=== PATIENT | male | born 1950 | race Caucasian/White ===

== ENCOUNTER 2023-10-25 08:04 | Emergency (ER) | payer MEDICARE, SELFPAY ==
[2023-10-25 08:11] VITALS: BP 144/83
[2023-10-25 08:12] LABS: Glucose - Point of Care 153 mg/dl (70-99)
--- NOTE | 2023-10-25 08:12 | ED.GENMED ---
History of Present Illness
General
Chief Complaint: Seizure
Source: patient and ambulance crew
Exam Limitations: none
Time Seen by Provider: 10/25/23 08:10
Nursing documentation reviewed up to this point in time: agreed with
Travel History
Have you had any contact with someone who has COVID-19?: No
Do you have any symptoms of coronavirus? Fever > 100 degrees, chills, cough, shortness of breath, sore throat, loss of taste or smell, muscle aches, or headache?: No
History of Present Illness
History of Present Illness:
73 yo male presents to the emergency department due to a possible seizure. He was found on the floor. He denies any complaints at this time. EMS notes he is at his baseline currently.
Past History
Past History
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 Sleep apnea)
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
Social History
Tobacco: Non-smoker
Alcohol: None
Drug: None
Personal: Single
Living: assisted living
Employment: Disabled
Family History
Family History: Other (breast cancer)
Review of Systems
Review of Systems
Allergies reviewed?: Yes
All Other Systems: Not applicable
Constitutional: Reports no symptoms
EENT: Reports no symptoms
Respiratory: Reports no symptoms
Cardiac: Reports no symptoms
ABD/GI: Reports no symptoms
: Reports no symptoms
Musculoskeletal: Reports no symptoms
Skin: Reports no symptoms
Neurological: Reports other (possible seizure)
Endocrine: Reports no symptoms
Hematologic/Lymphatic: Reports no symptoms
Psychiatric: Reports no symptoms
Phy Exam
Physical Exam
Physical Exam:
Physical Exam
General: no apparent distress, not acutely ill
Neck: supple. no meningeal signs. normal posterior pharynx
Heart: s1/s2 regular rate and rhythm, no murmur. equal radial
pulses.
HEENT: Pupils equal round reactive to light, EOMI
Lungs: no acute respiratory distress. clear bilaterally
Abdomen: normal bowel sounds. not tender. no CVAT
Neuro: alert and oriented. no focal neurological deficits cranial nerves II through XII intact
Skin: no rash, bruising right shoulder, appears old
Psychiatric: well kept. interactive and cooperative
Extremities: no edema. no calf tenderness. negative homans. good distal pulses
Course
Orders/Labs/Results
Orders:
Orders
10/25/23 08:10
CT Cervical Spine W/o Iv Contr Urgent
Comment:
Reason For Exam: fall
EKG- Treatment ONCE
10/25/23 08:11
CT Head W/o Iv Contrast Urgent
Comment:
Reason For Exam: fall, seizure
10/25/23 08:12
Electrocardiogram (*1) Urgent
Reason for Study: Other
Other Reason for Exam: seizure
10/25/23 08:13
IV Insert/Care/Rem.- Treatment PRN
10/25/23 08:43
Complete Blood Count/With Diff Urgent
Comprehensive Metabolic Panel Urgent
Dilantin Urgent
Phenobarbital [S] Urgent
10/25/23 09:50
Humerus, Right 2 Views [CR Humerus - Right Min 2 View*] Urgent
Comment:
Reason For Exam: right shoulder/humerus pain/bruising
Abnormal Lab Results
10/25/23 10/25/23
08:10 08:43
RBC 4.40 L 10^6/uL
(4.70-6.10)
MCV 94.1 H fL
(80.0-94.0)
MCH 32.3 H pg
(27.0-31.0)
Abs Immat Gran (auto) 0.1 H 10^3/uL
(0-0.05)
Absolute Neuts (auto) 8.2 H 10^3/uL
(1.4-6.5)
Absolute Lymphs (auto) 1.1 L 10^3/uL
(1.2-3.4)
Absolute Monos (auto) 1.4 H 10^3/uL
(0.1-0.6)
Immature Gran % 0.6 H %
(0-0.5)
Neutrophils % 75.9 H %
(42.2-75.2)
Lymphocytes % 9.9 L %
(20.5-51.1)
Monocytes % 13.0 H %
(1.7-9.3)
Creatinine 0.5 L mg/dL
(0.7-1.3)
Glucose 121 H mg/dl
(70-99)
Phenytoin 25.8 H ug/ml
(10-20)
POC Glucose 153 H mg/dl
(70-99)
10/25/23 08:43
10/25/23 08:43
Vital Signs
Initial and Last Documented VS:
Initial Vital Signs
Temp Pulse Resp BP Pulse Ox
98.3 F 85 16 144/83 95
10/25/23 08:11 10/25/23 08:11 10/25/23 08:11 10/25/23 08:11 10/25/23 08:11
Last Documented Vital Signs
Temp Pulse Resp BP Pulse Ox
98.3 F 85 15 123/85 94
10/25/23 08:11 10/25/23 09:20 10/25/23 09:20 10/25/23 09:20 10/25/23 09:20
MDM/Problems Addressed
Differential Diagnosis Includes:
seizure, right humerus fracture
MDM/Problems Addressed:
73 yo male with breakthrough seizure, right humerus contusion. D/w Dr. Duncan, recommends f/u in office. Anti epileptics may need adjustment. Pt has not seen neurology in 9 years because it causes him great anxiety.
Chronic conditions affecting care: Neurological disorder (seizures, sturge cervantes)
Acute Exacerbation and/or Progression of Chronic Illness: Neurological disorder (seizures)
*Radiology
Radiology exam reviewed: radiology read reviewed (ct head nad, right humerus xray no frx)
*Pulse Oximetry
Patient hypoxic: no
*EKG
Interpreted by ED Provider?: Yes
EKG Intrepretation Date: 10/25/23
EKG Intrepretation Time: 08:19
Interpretation: abnormal
Comparison EKG: no changes
Heart Rate: 84
Rate: normal
Rhythm: sinus
[place]: normal axis
Interval: first degree heart block
QRS Pattern: normal QRS
Ischemia: no ischemia
*Curriculum Facilitator Interpretation
Rate: normal
Interpretation: normal
Heart Rate: 79
Rhythm: sinus
*Critical Care Note
Total Time (30-74mins, 75-104mins- exclusive of procedures): Not Applicable
Data Reviewed
Review of Other/Old Records Reveals: Radiology Studies
Source: records (prior ct head no changes)
Patient Management
Social determinants of health affecting care: Living situation and Strong social support
Discussion with other providers: Boiler Out (neurology Dr. Duncan)
Escalation/DeEscalation of care consider admission/obs:
admit not indicated
ED Attending Note
-
Portions of this chart may have been created with voice recognition software.� Occasional wrong word or��sound alike� substitutions may have occurred due to the inherent limitations of voice recognition software.
Discharge Plan
Departure
Patient Disposition: Assisted Living
Date of Disposition: 10/25/23
Time of Disposition: 10:27
Patient with high blood pressure during this ER visit?: Yes
Condition: Good
Discharge Problem:
Seizure, Sturge-Cervantes syndrome, Contusion of right shoulder
Instructions: Seizures, Adult (DC), BLOOD PRESSURE, Contusion
Prescriptions:
No Action
phenobarbital 97.2 mg Tablet
97.2 mg PO HS Qty: 0
cyanocobalamin (vitamin B-12) 1,000 mcg Tablet Extended Release
1,000 mcg PO DAILY Qty: 0
diphenhydramine HCl [Banophen] 25 MG capsule
25 mg PO Q4HPRN PRN (Reason: swelling) Qty: 20 0RF
acetaminophen 325 mg Tablet
650 mg PO Q4HPRN PRN (Reason: pain/fever)
pantoprazole [Protonix] [address] for susp in packet
40 mg PO DAILY Qty: 30 0RF
sertraline 25 mg Tablet
25 mg PO DAILY 30 Days Qty: 30 0RF
phenytoin sodium 100 mg Capsule
200 mg PO HS
cholecalciferol (vitamin D3) [Vitamin D3] 25 mcg (1,000 unit) Tablet
25 mcg PO DAILY
phenytoin sodium extended 100 mg capsule
100 mg PO BID
Referrals:
Wally Reeder MD [Active] - Call in 1-3 days for appt
Kristen Charles CRNP [Family Provider] -
Interventions
Interventions:
*Risk Screen - Suicide Last Done: 10/25/23 08:38
*Neglect/Abuse Screening Last Done: 10/25/23 08:38
ED- Fall Risk Assessment Last Done: 10/25/23 08:40
*ED COVID-19 Vaccine History Last Done: 10/25/23 08:15
ED- Cardiac Assessment Last Done: 10/25/23 08:40
ED- Neurological Assessment Last Done: 10/25/23 08:38
ED- Pulmonary Assessment Last Done: 10/25/23 08:39
[2023-10-25 09:01] LABS: % Basophils 0.4 % (0-2); % Eosinophils 0.2 % (0-6); % Immature Granulocytes 0.6 % (0-0.5); % Lymphocytes 9.9 % (20.5-51.1); % Neutrophils 75.9 % (42.2-75.2); Absolute Immature Granulocytes 0.1 10^3/uL (0-0.05); Absolute Lymphocytes 1.1 10^3/uL (1.2-3.4); Absolute Monocytes 1.4 10^3/uL (0.1-0.6); Absolute Neutrophils 8.2 10^3/uL (1.4-6.5); Hematocrit 41.4 % (39.0-52.0); Hemoglobin 14.2 g/dL (13.0-18.0); Mean Corp Hgb Conc. 34.3 g/dL (33.0-37.0); Mean Corpuscular Hgb 32.3 pg (27.0-31.0); Mean Corpuscular Volume 94.1 fL (80.0-94.0); Mean Platelet Volume 9.5 fL (7.4-10.4); Nucleated Red Blood Cells % 0 % (-); Platelet Count 218 10^3/uL (130-400); Red Cell Dist. Width 13.4 % (11.5-14.5); White Blood Cell Count 10.8 10^3/uL (4.8-10.8)
[2023-10-25 09:07] LABS: ALT (SGPT) 22 U/L (0-50); AST (SGOT) 40 U/L (17-59); Albumin 4.3 g/dl (3.5-5.0); Alkaline Phosphatase 114 U/L (38-126); Blood Urea Nitrogen 15 mg/dl (9-20); Carbon Dioxide 27 mmol/L (22-30); Chloride 105 mmol/L (98-107); Glucose 121 mg/dl (70-99); Potassium 4.1 mmol/L (3.5-5.1); Sodium 136 mmol/L (135-145); Total Bilirubin 0.7 mg/dl (0.2-1.3); Total Protein 7.6 g/dl (6.3-8.2); eGFR > 60.00
[2023-10-25 09:11] LABS: Dilantin 25.8 ug/ml (10-20)
[2023-10-25 09:20] VITALS: BP 123/85
[2023-10-25 10:00] VITALS: BP 137/81
[2023-10-25 11:00] VITALS: BP 140/93
--- NOTE | 2023-10-25 12:38 | EDRN ---
copies of all tests and ER physician notes sent with pt to [facility]
== END 2023-10-25 12:38 ==
LOC: EMR 08:04
PROVIDERS: EMERGENCY PHYSICIAN Emergency Medicine; FAMILY PHYSICIAN Nurse Practitioner Adult Health
DX: R56.9 Unspecified convulsions (principal); Q85.89 Other phakomatoses, not elsewhere classified; S40.011A Contusion of right shoulder, initial encounter; W19.XXXA Unspecified fall, initial encounter; R03.0 Elevated blood-pressure reading, without diagnosis of hypertension
CPT/HCPCS: 99285; 70450; 72125; 73060; 80053; 80184; 80185; 82962; 85025; 93005

== ENCOUNTER 2023-10-27 13:24 | Inpatient (IN) | payer MEDICARE, SELFPAY ==
[2023-10-25] VITALS (8 sets, daily range): BP systolic 103–127; BP diastolic 67–82; BMI 29.1
--- NOTE | 2023-10-25 16:18 | ED.GENMED ---
History of Present Illness
General
Chief Complaint: Weakness
Source: patient
Exam Limitations: none
Time Seen by Provider: 10/25/23 16:05
Nursing documentation reviewed up to this point in time: agreed with
Travel History
Have you had any contact with someone who has COVID-19?: No
Do you have any symptoms of coronavirus? Fever > 100 degrees, chills, cough, shortness of breath, sore throat, loss of taste or smell, muscle aches, or headache?: No
History of Present Illness
History of Present Illness:
Patient is a 73-year-old male who presents back to the ER. Patient is a resident of [place]. He has a past medical history of seizures and is on Dilantin and phenobarb. As per brother who was giving history pt had a seizure yesterday and was
found on the floor today by staff and was felt that he had a seizure today. He was seen here earlier in the ER and was sent back to [place]. Brother reports patient was more alert and himself earlier however once he got back to [place] he seemed
very confused and out of it. Brother reports patient is normally awake alert self-sufficient not confused walks with a walker Manuel himself and he has not been like his baseline.
Patient is awake alert he does make eye intact he attempts to answer questions but does not answer all questions.
During previous visit patient had his Dilantin level checked and it was 25.8. He had a negative CAT scan and normal blood work.
brother reprots
Past History
Past History
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 Sleep apnea)
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
Social History
Tobacco: Non-smoker
Alcohol: None
Drug: None
Personal: Single
Living: assisted living
Employment: Disabled
Family History
Family History: Other (breast cancer)
Review of Systems
Review of Systems
Allergies reviewed?: Yes
Unable to obtain full review of systems at this time due to: other (mental status changes )
Other source history: family
All Other Systems: ROS reviewed and negative except as documented in HPI and ROS
Constitutional: Denies fever
Cardiac: Reports no symptoms
ABD/GI: Reports no symptoms
: Reports no symptoms
Musculoskeletal: Reports no symptoms
Skin: Reports no symptoms
Neurological: Reports other (increased confusion, pt not baseline as per brother )
Psychiatric: Reports no symptoms
Phy Exam
General Physical Exam
General Presentation: no apparent distress
General Skin: warm and dry
General Habitus: normal
General Mental: alert
General Hydration: appears well hydrated
Cardiovascular Exam
Cardiovascular Exam: regular rate/rhythm, no murmur and normal peripheral pulses
Pulmonary Exam
Pulmonary Exam: lungs clear and no respiratory distress
Neurological Exam
Neurological Exam: alert and oriented x3
Musculoskeletal Exam
Musculoskeletal Exam: full ROM
Skin Exam
Skin Exam: normal color and warm/dry
Psychiatric Exam
Psychiatric Exam: normal mood/affect
Course
Orders/Labs/Results
Orders:
Orders
10/25/23 16:19
Straight cath- Treatment ONCE
10/25/23 16:21
COVID-19 Antigen Urgent
Source: Nasal Swab
Influenza A+B Rapid Molecular Urgent
NANCY Source: Nasal Swab
Specimen Description:
10/25/23 16:37
UA Reflex to Culture [Urinalysis Reflex To Culture] Urgent
Date Specimen was Collected: 10/25/23
Time Specimen was Collected: 16:29
10/25/23 17:06
Chest [CR Chest - 2 Views ] Urgent
Comment:
Reason For Exam: change in ms
Abnormal Lab Results
10/25/23
16:37
Urine Ketones 1+ A
(Negative)
Vital Signs
Initial and Last Documented VS:
Initial Vital Signs
Temp Pulse Resp BP Pulse Ox
97.8 F 96 16 111/82 94
10/25/23 15:00 10/25/23 15:00 10/25/23 15:00 10/25/23 15:00 10/25/23 15:00
Last Documented Vital Signs
Temp Pulse Resp BP Pulse Ox
97.8 F 96 16 111/82 94
10/25/23 15:00 10/25/23 15:00 10/25/23 15:00 10/25/23 15:00 10/25/23 15:00
Cracker And Cookie Machine Operator consulted with Physician
Cracker And Cookie Machine Operator consulted with physician?: Yes
Name of Physician Consulted: bang
MDM/Problems Addressed
Differential Diagnosis Includes:
Not limited to infection dehydration change mental status
MDM/Problems Addressed:
Patient has history as documented above seen earlier today for seizure. Patient had a seizure yesterday and again today. Patient had basic labs that were done here in the ER which were unremarkable. Event was elevated at 12.[address] head was negative. X-rays of extremities negative. Neurology was consult no medications were adjusted. Brother reports last seizure was 6 months ago. Patient now with 2 seizures in the past 24 hours. Patient was sent back to
[facility] and staff as well as brother report patient is not himself more confused and simply appears generalized weak.
Patient is awake eyes open alert slow to answer questions. Does not respond to all questions.
CT head reviewed from earlier I did not repeat this. Urinalysis negative. COVID flu negative will obtain chest x-ray but admitted for change in mental status.
Chronic conditions affecting care:
Seizures disorder seen earlier for seizure Dilantin elevated 25.9 phenobarb by pending
*Radiology
Radiology exam reviewed: radiology read reviewed
*Pulse Oximetry
Patient hypoxic: no
*Critical Care Note
Total Time (30-74mins, 75-104mins- exclusive of procedures): Not Applicable
Data Reviewed
Review of Other/Old Records Reveals: Other (previous ED visit from this am , labs, ct , ekg all reviewed )
Source: family and retirement
ED Attending Note
-
Portions of this chart may have been created with voice recognition software.� Occasional wrong word or��sound alike� substitutions may have occurred due to the inherent limitations of voice recognition software.
Discharge Plan
Departure
Patient Disposition: Admit
Date of Disposition: 10/25/23
Time of Disposition: 17:32
Admit to: Telemetry
Admit to doctor: hospitalist
Presentation/result/management discussed w/ accepting MD/DO: Hospitalist
Patient with high blood pressure during this ER visit?: No
Condition: Fair
Covid-19: Negative COVID-19
Discharge Problem:
Altered mental status, Seizure
Prescriptions:
No Action
phenobarbital 97.2 mg Tablet
97.2 mg PO HS Qty: 0
cyanocobalamin (vitamin B-12) 1,000 mcg Tablet Extended Release
1,000 mcg PO DAILY Qty: 0
diphenhydramine HCl [Banophen] 25 MG capsule
25 mg PO Q4HPRN PRN (Reason: swelling) Qty: 20 0RF
acetaminophen 325 mg Tablet
650 mg PO Q4HPRN PRN (Reason: pain/fever)
pantoprazole [Protonix] [address] for susp in packet
40 mg PO DAILY Qty: 30 0RF
sertraline 25 mg Tablet
25 mg PO DAILY 30 Days Qty: 30 0RF
cholecalciferol (vitamin D3) [Vitamin D3] 25 mcg (1,000 unit) Tablet
25 mcg PO DAILY
phenytoin sodium extended 100 mg capsule
200 mg PO DAILY@1700
phenytoin sodium extended 100 mg Capsule
100 mg PO BID@0800,2100
Referrals:
Kristen Charles CRNP [Family Provider] -
Interventions
Interventions:
*Risk Screen - Suicide Last Done: 10/25/23 15:00
*General Assessment Last Done: 10/25/23 15:00
*Neglect/Abuse Screening Last Done: 10/25/23 15:00
[2023-10-25 16:46] LABS: Urine Albumin Negative (Neg - Trace); Urine Bilirubin Negative (Negative); Urine Character Clear (Clear); Urine Color Yellow; Urine Glucose Negative (Negative); Urine Ketone 1+ (Negative); Urine Leukocyte Negative (Negative); Urine Nitrite Negative (Negative); Urine Occult Blood Negative (Negative); Urine Urobilinogen Negative (Neg - 1+)
[2023-10-25 16:59] LABS: COVID-19 Antigen Negative (Negative)
--- NOTE | 2023-10-25 17:54 | HPS.HSE ---
Family Physician
-
Family Physician: Kristen Charles
Chief Complaint
-
Seizure
History of Present Illness
Patient had seizure yesterday and was seen in the emergency room today as he was found on the floor this morning., had a CT of the head which was done negative. Neurology was consulted for breakthrough seizures. No medicines were adjusted.
Patient remains on phenobarbital and Dilantin. Dilantin level was 25.8. Patient was sent back to the emergency room because brother feels that the patient is not himself. Generally weak and slow to respond. Per family patient is not able to
ambulate well either. He states that patient has random fluctuations in his Dilantin levels. Has been stable for the past 2 months the doses has not been adjusted. Last seizure was over 6 months ago. No recent medicine adjustments. No fever.
No illness
Medical History
Past Medical History
Past Medical History: Reports Other
Additional Past Medical History:
Seizures, developmental delay, sleep apnea, kyphosis, right frozen shoulder, anxiety, Sturge-Redman syndrome, history of aspiration pneumonia, history of food impaction
Past Surgical History: Reports Other
Additional Past Surgical History:
History of brain tumor resection at age 2
Social History
Tobacco: Non-smoker
Alcohol: None
Personal: Single
Living: Assisted Living
Family History
Family History: Cancer (Prostate cancer father, breast cancer Sister, colon cancer mother)
Allergies / Home Medications
Allergies reflects when Allergies were last updated in [facility].
Home Medications with original date entered in [facility]
Allergy/Medication List:
Allergies
Allergy/AdvReac Type Severity Reaction Status Date / Time
No Known Allergies Allergy Verified 10/25/23 15:00
Home Medications
phenobarbital 97.2 mg tablet 97.2 mg PO HS Seizures ##0 08/19/14
cyanocobalamin (vitamin B-12) 1,000 mcg tablet,extended release 1,000 mcg PO DAILY Supplement ##0 05/07/16
diphenhydramine HCl 25 mg capsule (Banophen) 25 mg PO Q4HPRN PRN swelling #20 caps 08/29/18
acetaminophen 325 mg tablet 650 mg PO Q4HPRN PRN pain/fever 04/03/22
pantoprazole 40 mg granules delayed-release for susp in packet (Protonix) 40 mg PO DAILY #30 ea 04/05/22
sertraline 25 mg tablet 25 mg PO DAILY 30 days #30 tabs 05/29/22
cholecalciferol (vitamin D3) 25 mcg (1,000 unit) tablet (Vitamin D3) 25 mcg PO DAILY 10/25/23
phenytoin sodium extended 100 mg capsule 100 mg PO BID@0800,2100 10/25/23
phenytoin sodium extended 100 mg capsule 200 mg PO DAILY@1700 10/25/23
Review of Systems
-
Unable to obtain full review of systems at this time due to: Other (Patient is a poor historian)
Physical Exam
Vital Signs
Vital Signs
Temp Pulse Resp BP Pulse Ox
97.8 F 90 13 103/71 94
10/25/23 15:00 10/25/23 17:31 10/25/23 17:31 10/25/23 17:31 10/25/23 17:44
Physical Exam
General: No Apparent Distress and Conversant
Respiratory: Clear
Cardiac: S1/S2 and Regular Rhythm
GI: Soft, Non Tender and Normal Bowel Sounds
Skin: Other (Hemangioma from Sturge-Redman on the face, ecchymosis left antecubital area right arm lateral)
Neuro: Awake, Alert and Other (Patient has a right frozen shoulder he has mild weakness on the right side which is not newAble to lift up left leg patient states sensory exam is normal both sides left arm he is able to lift up good grasp 5 x 5
strength. Reflexes decreased but equal bilaterally.)
Data Reviewed
-
Diagnostic Radiology: Report Reviewed by me (X-ray of the shoulder-no acute fracture or dislocation. Chronic deformity of the proximal humerus)
CT Scan: Report Reviewed by me (Head CT-no acute changes. No acute fracture or subluxation of the cervical spine, multilevel DJD of the cervical spine)
Impression/Plan
-
IMPRESSION/PLAN:
# Breakthrough seizure
Unclear cause for breakthrough seizures
No evidence of infection at present
Elevated Dilantin level
Admit for observation
Hold Dilantin per discussion with Dr. Reeder with elevated level
Continue phenobarbital
Seizure precautions
Reported ataxia-possibly secondary to Dilantin toxicity
Dilantin levels in the morning
Neurology evaluation
Urinalysis unremarkable
COVID-negative
Check chest x-ray
# History of dysphagia and food impaction summer
Dysphagia diet
Speech eval
Continue PPI
Assistance with all meals
# Sturge-Redman syndrome
# Developmental delay
# Chronic back pain/scoliosis
# Neuropathy NOS
# Frozen shoulder on the right
# Anxiety/depression-on sertraline
# History of vitamin D deficiency-continue vitamin D supplement
# Sleep apnea-not on CPAP
# CODE STATUS-DNR per discussion with brother and [id number] at bedside
# DVT prophylaxis-SCDs
D/W Neuro
D/W RN
D/W Brother and [facility] Dr.Donna Portillo at bed side
[2023-10-25] MEDS: LUMINAL 97.2000000000000028 MG PO (21:16)
[2023-10-25] MEDS: TYLENOL 650 MG PO (21:22)
[2023-10-26 03:27] VITALS: BP 132/76
[2023-10-26 07:33] VITALS: BP 137/85
[2023-10-26 07:42] LABS: Hematocrit 40.3 % (39.0-52.0); Hemoglobin 13.7 g/dL (13.0-18.0); Mean Corpuscular Volume 94.2 fL (80.0-94.0); Mean Platelet Volume 9.6 fL (7.4-10.4); Platelet Count 237 10^3/uL (130-400); Red Blood Cell Count 4.28 10^6/uL (4.70-6.10); Red Cell Dist. Width 13.6 % (11.5-14.5); White Blood Cell Count 9.1 10^3/uL (4.8-10.8)
[2023-10-26 08:25] LABS: Blood Urea Nitrogen 13 mg/dl (9-20); Calcium 8.8 mg/dl (8.4-10.2); Carbon Dioxide 25 mmol/L (22-30); Chloride 104 mmol/L (98-107); Estimated Creatinine Clearance 91 ml/min; Glucose 96 mg/dl (70-99); Magnesium 2.1 mg/dl (1.6-2.3); Potassium 4.1 mmol/L (3.5-5.1); Sodium 135 mmol/L (135-145); eGFR > 60.00
--- NOTE | 2023-10-26 08:28 | CON.NEURO4 ---
Addendum entered and electronically signed by Ivan Duncan MD 10/26/23 13:36:
I saw and evaluate the patient reviewed note by Juliet Kern agree the findings the following comments:
73-year-old male with a past medical history of Sturge-Redman syndrome, epilepsy, hyperlipidemia, intellectual disability presented to hospital because of confusion leg weakness and difficulty with ambulation. He had recently been seen in the ER on
10/16 after witnessed seizure that day and there had been concern for possible unwitnessed second seizure as well.
Patient had had seizure in August approximately 09/04 that prompted increase in 100 mg nightly and 200 mg p.m. 100 mg nightly. Most recent lab check a phenytoin had been 25.8 on and was 17.0 on 10/25. Seizure frequency can range from around
1/month to 1 every couple of months. He has been on phenytoin as well as phenobarbital for many years now. In the past I had previously seen him in May 2022 with a concern for mild Dilantin toxicity leading to paradoxical increase in seizures.
Patient at this time has no complaints, does not really feel like talking much about seizures. Reports he is left-handed and that he is a ' [place].'
Neurologic examination shows No nystagmus seen on extraocular movements, there is spasticity on the right arm and leg 4 -/5 arm flexion and hip flexion, left arm and leg full health center manager strength and arm flexion limited effort of left hip flexion. Patient
fatigued appearing but is awake and conversational, pleasant and jokes with me. No nystagmus seen on extraocular movements.
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 At this point seems best to move away from phenytoin given has not achieve seizure freedom and has had problems with fluctuating levels and
one-time toxicity. Levels and examination currently do not indicate acute toxicity. Dilantin can produce long-term side effects like peripheral neuropathy and cerebellar atrophy that probably in part explain the patient's chronic ambulatory
dysfunction in addition to his chronic deficits from history of Sturge-Redman syndrome and previous brain neoplasm resection.
Recommendations
-Decrease phenytoin to 200 mg nightly
--- 11/01 decrease phenytoin to 100 mg nightly
--- 11/08 stop phenytoin completely
Start brivaracetam 50 mg twice daily
Continue current dosing of phenobarbital
Would check phenobarbital blood levels 1 and 2 weeks after hospital discharge and have the results faxed to neurology office attention to myself and/or Dr. Reeder
Would monitor 1 further day in hospital given he is fatigued appearing and for tolerability of the new preparation to medication
Not seeing indication for EEG or brain imaging
Will follow
Original Note:
Consultation - Neurology 4
-
CONSULTING PHYSICIAN: Nam Duncan MD
REFERRING PHYSICIAN: Hospitalists/Dr. Devlin
DICTATED BY: USAMA Walker
DATE/TIME OF REQUEST: 10/25/23
DATE/TIME OF CONSULTATION: 10/26/23
Reason for Consultation: Seizure, lower extremity weakness
History of Present Illness:
This is a 73-year-old left-handed male who has presented to the hospital on 10/25/23 from [facility] with report of increased confusion, limited eye opening, and bilateral leg weakness. Per AL staff, patient had a witnessed seizure on
10/24/23. He was evaluated here in the ER on 10/25/23 earlier in the day for report of being found on the floor by nursing staff and concern of a second seizure. In the ER he had returned to his baseline and was discharged back to [place], only to
return to the ER later in the day with report of confusion, limited eye opening, and inability to stand/ambulate. Patient has been evaluated by our inpatient Neurology service in the past and was previously followed by Dr. Reeder as an outpatient but
does not appear to have any outpatient follow-up in years.
From previous evaluation by Dr. Duncan on 05/28/22:
'Is a 71-year-old man with a past medical history of surgery Redman syndrome, chronic epilepsy presenting the hospital because of seizure on 05/27 and 05/26.� Had had a seizure earlier in the morning on 05/27 at the breakfast table with leg clonic
movements described as shaking and then having difficulty walking afterwards notably in the right leg.� Had had approximately 2-3 seizures in the past week, his normal seizure frequency is approximately 1/month.� He was found to have elevated
phenytoin level of 27, in reviewing his previous levels they have generally been the therapeutic range between 15 and 20.� Reviewing phenobarbital levels they have generally been between 23-30 in the therapeutic range.
There have been no recent changes in medications including any dosing changes of phenytoin or phenobarbital.� His phenytoin has been dosed as 100 mg in the morning, 200 mg for noon/afternoon, and 100 mg in the evening.� Phenobarbital dose has been
at 97.2 mg nightly, has been on these doses for some time.� No recent significant weight changes he did have a history of a food impaction is now on a pur�ed diet with clear liquids.� No recent illnesses characterized by nausea or vomiting, p.o.
intake has been adequate.
At this time has no complaints he says he does not have any headache, nausea or vomiting, he says he does feel a little bit inpatient sometimes but at this point feels fairly comfortable.'
Per [facility] medical records, it appears that prior to his seizure on 10/24/23, his last seizure was on 09/04/23. His phenytoin level was checked at that time and was low at 9.7. It is unclear what his previous dosing was, but his dose was increased to
100mg AM, 200mg PM, and 100mg HS after that event. It appears that his levels fluctuate drastically and he has needed frequent adjustments in his dosing. Currently, patient endorses some neck discomfort but denies any headache, vision changes,
photophobia, speech/swallow difficulty, nausea/vomiting, numbness, chest pain, palpitations, and shortness of breath. He is unable to describe how he feels when he tries to get out of bed, but he appears dizzy and off-balance.
Past Medical History: Seizure disorder, brain tumor, Sturge-Redman syndrome, HLD, GERD, vitamin B12 and D deficiency, gait dysfunction, food impaction/dysphagia, depression
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
Family History: Reviewed and noncontributory.
Social History: Denies alcohol,
Allergies: No known allergies.
Home Medications: See below.
Review of Symptoms:
Patient denies any fever, headache, chest pain, shortness of breath, GI or symptoms.
�Per the HPI.�All systems are reviewed negative except above.
Physical Exam:
The patient is afebrile, abdomen is nondistended, breathing is unlabored, skin is warm and dry, no edema.
Neurologic Examination:
The patient is awake, alert and oriented x 3. He is able to follow commands and answer questions appropriately. There is no aphasia or dysarthria. On cranial nerve assessment, pupils are 3 mm bilateral, round and reactive to light and
accommodation. Visual harmon are full. Extraocular movements are intact. Keeps eyes open unless prompted to open them. Facial sensations are intact and bilaterally symmetrical, there is no facial asymmetry. Hearing is intact bilaterally to normal
conversation volume. Tongue palate and uvula are midline. Sternocleidomastoid strengths are full bilaterally. Motor strengths are 5/5 left upper, 3/5 right upper, and 3-/5 bilateral lower extremities on medical research [place] scale. Mild
spasticity in RUE and RLE. No involuntary movement noted. Deep tendon reflexes are 1+ bilateral upper and lower extremities and Babinski is absent bilaterally. Sensations of touch, temperature and vibration are intact and bilaterally symmetrical.
There was no extinction noted on double simultaneous stimulation. Coordination is intact by finger to nose in the left hand, ataxic weakness in RUE.
Lab Results: See below.
Neuro Imaging:
1. CT Head 10/25/23: No acute intracranial abnormality noted. Chronic changes as described. No acute fracture or subluxation of the cervical spine. Multilevel degenerative changes of the cervical spine.
Differentials for the patient's presentation include:
1. Mild phenytoin toxicity combined with effects of long-term phenytoin usage likely causing increased ataxia/weakness.
2. Breakthrough seizures in the setting of supratherapeutic phenytoin level.
Patient has the following risk factors for their symptoms: shelter usage of phenytoin, seizure disorder, left temporoparietal encephalomalacia
Recommendations:
-Recommend weaning off of phenytoin and switching to Briviact due to custodial side effects of chronic phenytoin usage.
-Start Briviact 50mg PO BID.
-Titrate patient off of phenytoin. Starting tonight, Week 1: 200mg phenytoin HS only. Week 2: 100mg phenytoin HS. Week 3: stop phenytoin.
-Continue phenobarbital 97.2mg HS. Monitor phenobarbital levels closely while weaning phenytoin. Check phenobarbital level in 1 week and then repeat level again in 2 weeks.
-Seizure precautions.
-Neurological checks per unit guidelines.
-PT/OT/ST evaluations.
-DVT prophylaxis.
-Follow-up with Neurology as an outpatient as scheduled on 11/01/[address] Reeder.
Discussed patient care with: Dr. Duncan, the patient
Vital Signs and Labs
-
Vital Signs and Labs:
Vital Signs
Temp Pulse Resp BP Pulse Ox
98.1 F 90 14 112/76 94
10/26/23 12:00 10/26/23 12:00 10/26/23 12:00 10/26/23 12:00 10/26/23 12:00
Lab Results
10/26/23 06:32
10/26/23 06:32
Sodium 135 mmol/L (135-145) 10/26/23 06:32
Potassium 4.1 mmol/L (3.5-5.1) 10/26/23 06:32
BUN 13 mg/dl (9-20) 10/26/23 06:32
Glucose 96 mg/dl (70-99) 10/26/23 06:32
Calcium 8.8 mg/dl (8.4-10.2) 10/26/23 06:32
Vitamin B12 796 pg/ml (239-931) 10/26/23 06:32
Medications
-
Active Medications
Generic Name Dose Route Start Last Admin
Trade Name Freq PRN Reason Stop Dose Admin
Acetaminophen 650 mg 10/25/23 20:10 10/26/23 11:32
Acetaminophen 325 Mg Tablet PO 11/22/23 20:09 650 mg
Q4HPRN PRN Administration
pain/fever
Brivaracetam 50 mg 10/26/23 10:15 10/26/23 10:57
Brivaracetam 50 Mg Tablet PO 11/23/23 10:14 50 mg
BID TERESA Administration
Cholecalciferol 25 mcg 10/26/23 08:00 10/26/23 10:16
Cholecalciferol (Vitamin D3) 25 Mcg Tablet (1,000 Units) PO 11/23/23 07:59 25 mcg
DAILY TERESA Administration
Cyanocobalamin 1,000 mcg 10/26/23 08:00 10/26/23 10:16
Cyanocobalamin 1,000 Mcg Tablet PO 11/23/23 07:59 1,000 mcg
DAILY TERESA Administration
Diphenhydramine HCl 25 mg 10/25/23 20:10
Diphenhydramine 25 Mg Capsule PO 11/22/23 20:09
Q4HPRN PRN
swelling
Miconazole Nitrate 0 applic 10/26/23 06:28
Miconazole Powder Bottle TOPICAL 11/23/23 06:27
BIDPRN PRN
GROIN/LOWER ABD AREA
Pantoprazole Sodium 40 mg 10/26/23 08:00 10/26/23 10:17
Pantoprazole 40 Mg Delayed Release Tablet PO 11/23/23 07:59 40 mg
DAILY TERESA Administration
Phenobarbital Sodium 97.2 mg 10/25/23 22:00 10/25/23 21:16
Phenobarbital 32.4 Mg Tablet PO 11/22/23 21:59 97.2 mg
HS TERESA Administration
Phenytoin 200 mg 10/26/23 22:00
Phenytoin Sodium Extended 100 Mg Capsule PO 11/23/23 21:59
HS TERESA
Sertraline HCl 25 mg 10/26/23 08:00 10/26/23 10:16
Sertraline 25 Mg Tablet PO 11/23/23 07:59 25 mg
DAILY TERESA Administration
Sodium Chloride 0 flush 10/25/23 21:00
Sodium Chloride 0.9% (Flush) Syringe IV 11/22/23 20:59
PER PROTOCOL TERESA
Home Medications
Medication Instructions Recorded
phenobarbital 97.2 mg tablet 97.2 mg PO HS Seizures ##0 08/19/14
cyanocobalamin (vitamin B-12) 1,000 mcg PO DAILY Supplement ##0 05/07/16
1,000 mcg tablet,extended release
diphenhydramine HCl 25 mg capsule 25 mg PO Q4HPRN PRN swelling #20 08/29/18
(Banophen) caps
acetaminophen 325 mg tablet 650 mg PO Q4HPRN PRN pain/fever 04/03/22
cholecalciferol (vitamin D3) 25 25 mcg PO DAILY Supplement 10/25/23
mcg (1,000 unit) tablet (Vitamin
D3)
phenytoin sodium extended 100 mg 100 mg PO BID@0800,2100 Seizures 10/25/23
capsule
phenytoin sodium extended 100 mg 200 mg PO DAILY@1700 Seizures 10/25/23
capsule
pantoprazole 40 mg granules 40 mg PO DAILY Gastrointestinal 10/26/23
delayed-release for susp in packet Issue
(Protonix)
sertraline 25 mg tablet 25 mg PO DAILY Depression 10/26/23
[2023-10-26 09:12] LABS: TSH 1.06 uIU/ml (0.47-4.68)
[2023-10-26 09:27] LABS: Hepatitis C Antibody Negative (Negative)
[2023-10-26 09:30] LABS: Vitamin B12 796 pg/ml (239-931)
[2023-10-26] MEDS: ZOLOFT 25 MG PO (10:16)
[2023-10-26] MEDS: VITAMIN D3 (cholecalciferol) 25 MCG PO (10:16)
[2023-10-26] MEDS: VITAMIN B-12 1000 MCG PO (10:16)
[2023-10-26] MEDS: PROTONIX 40 MG PO (10:17)
[2023-10-26] MEDS: BRIVIACT 50 MG PO ×2 (10:57→21:29)
[2023-10-26] MEDS: TYLENOL 650 MG PO (11:32)
[2023-10-26 12:00] VITALS: BP 112/76
--- NOTE | 2023-10-26 14:31 | W.PN.HOSP.TC ---
Today's Communication/Plan
-
Wean Dilantin
Briviact started
PT OT
Assessment / Plan
Assessment / Plan
Drowsy , Arousable
Not coperative for exam
CVS S1 S2 normal
Chest CTA, decreased
Abd soft
# Breakthrough seizure
Unclear cause for breakthrough seizures
No evidence of infection at present
Elevated Dilantin level
Dilantin being tapered off, 200 mg mg daily for a week then continue before we can stop
Continue phenobarbital
Briviact started
Seizure precautions
Reported ataxia-possibly secondary to Dilantin toxicity, and because of long-term toxicity per discussion with neurology
Dilantin levels have normalized
Neurology evaluation noted, discussed this morning
Urinalysis unremarkable
COVID-negative
Chest x-ray without any changes
Patient drowsy, possibly secondary effects of medicine
# History of dysphagia and food impaction summer
Dysphagia diet
Speech eval
Continue PPI
Assistance with all meals
# Sturge-Redman syndrome
# Developmental delay
# Chronic back pain/scoliosis, add lidocaine patch for the neck
# Neuropathy NOS
# Frozen shoulder on the right
# Anxiety/depression-on sertraline
# History of vitamin D deficiency-continue vitamin D supplement
# Sleep apnea-not on CPAP
# CODE STATUS-DNR per discussion with brother and [id number] at bedside
# DVT prophylaxis-Add Lovenox
Discussed with brother at bedside
Discussed with Dr. Duncan this morning
Anticipated Discharge: Within 24 hours
Subjective/Interval History
-
Date of Service: October 26, 2023
Objective Data
-
Labs:
Laboratory Results
10/26/23
06:32
WBC 9.1
Hgb 13.7
Hct 40.3
Plt Count 237
Sodium 135
Potassium 4.1
Chloride 104
Carbon Dioxide 25
BUN 13
Creatinine 0.5 L
Glucose 96
Calcium 8.8
Vital Signs:
Vital Signs
Temp Pulse Resp BP Pulse Ox
98.1 F 90 14 112/76 94
10/26/23 12:00 10/26/23 12:00 10/26/23 12:00 10/26/23 12:00 10/26/23 12:00
[2023-10-26 15:13] VITALS: BP 109/77
[2023-10-26] MEDS: LIDOCAINE 4% PATCH 1 PATCH TOPICAL (15:13)
[2023-10-26] MEDS: LOVENOX 40 MG SC (17:49)
[2023-10-26 19:49] VITALS: BP 114/74
[2023-10-26] MEDS: LUMINAL 97.2000000000000028 MG PO (22:12)
[2023-10-26] MEDS: DILANTIN 200 MG PO (22:12)
[2023-10-26 23:34] VITALS: BP 116/61
[2023-10-27 03:50] VITALS: BP 118/70
[2023-10-27 06:00] VITALS: BMI 29.1
[2023-10-27] MEDS: TYLENOL 650 MG PO ×2 (06:19→17:46)
[2023-10-27 06:47] VITALS: BMI 29.1
[2023-10-27 06:57] LABS: Hematocrit 38.7 % (39.0-52.0); Mean Corp Hgb Conc. 33.6 g/dL (33.0-37.0); Mean Corpuscular Hgb 32.1 pg (27.0-31.0); Mean Corpuscular Volume 95.6 fL (80.0-94.0); Mean Platelet Volume 9.6 fL (7.4-10.4); Platelet Count 252 10^3/uL (130-400); Red Blood Cell Count 4.05 10^6/uL (4.70-6.10); Red Cell Dist. Width 13.6 % (11.5-14.5); White Blood Cell Count 8.7 10^3/uL (4.8-10.8)
[2023-10-27 07:26] VITALS: BP 106/63
[2023-10-27 07:26] LABS: Blood Urea Nitrogen 16 mg/dl (9-20); Calcium 8.9 mg/dl (8.4-10.2); Carbon Dioxide 27 mmol/L (22-30); Chloride 102 mmol/L (98-107); Estimated Creatinine Clearance 91 ml/min; Glucose 101 mg/dl (70-99); Sodium 137 mmol/L (135-145); eGFR > 60.00
[2023-10-27] MEDS: LIDOCAINE 4% PATCH 1 PATCH TOPICAL (07:36)
[2023-10-27] MEDS: BRIVIACT 50 MG PO ×2 (07:36→20:36)
[2023-10-27] MEDS: ZOLOFT 25 MG PO (07:36)
[2023-10-27] MEDS: PROTONIX 40 MG PO (07:36)
[2023-10-27] MEDS: VITAMIN B-12 1000 MCG PO (07:36)
[2023-10-27] MEDS: VITAMIN D3 (cholecalciferol) 25 MCG PO (07:37)
--- NOTE | 2023-10-27 08:37 | W.PN.NEURO.1 ---
Today's Communication / Plan
-
-Decrease phenytoin to 200 mg nightly
--- 11/01 decrease phenytoin to 100 mg nightly
--- 11/08 stop phenytoin completely
-Continue Brivaracetam 50 mg twice daily
-Continue current dosing of phenobarbital
-Check phenobarbital blood levels 1 and 2 weeks after hospital discharge and have the results faxed to neurology office attention to myself and/or Dr. Reeder
-Acceptable for discharge from my standpoint
Call with questions and concerns
Neuro Assessment/Plan
Assessment
73 year old man with history of Sturge Redman syndrome, chronic epilepsy who had recent seizures prompting ED visit, ambulatory function as well
No findings suggestive of overt toxicity of Phenytoin or Phenobarbital
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
No witnessed seizures since admission
Subjective/Objective
Subjective Data
Date of Service: October 27, 2023
No acute events, patient notes that people complain about the weather but really nothing you can do about it, says he is never alone since he has his police cadet alan cade, denies headache, no witnessed seizure activity or unresponsiveness
overnight
Objective Data
Vital Signs
Temp Pulse Resp BP Pulse Ox
100.1 F 99 20 106/63 92
10/27/23 07:26 10/27/23 07:26 10/27/23 07:26 10/27/23 07:26 10/27/23 07:26
Lab Results
10/27/23 06:27
10/27/23 06:27
Sodium 137 mmol/L (135-145) 10/27/23 06:27
Potassium 4.0 mmol/L (3.5-5.1) 10/27/23 06:27
BUN 16 mg/dl (9-20) 10/27/23 06:27
Glucose 101 mg/dl (70-99) H 10/27/23 06:27
Calcium 8.9 mg/dl (8.4-10.2) 10/27/23 06:27
Vitamin B12 796 pg/ml (239-931) 10/26/23 06:32
Patient Allergies
No Known Allergies Allergy (Verified 10/25/23 15:00)
Review of Systems
-
History Source: Patient
All other systems: Reviewed and negative
Constitutional: No Symptoms
EENT: No Symptoms Reported
Respiratory: No Symptoms
Cardiac: No Symptoms
Abdomen/GI: No Symptoms
Genitourinary: No Symptoms
Musculoskeletal: No Symptoms
Skin: No Symptoms
Neuro: See existing Neuro Note
Endocrine: No Symptoms
Hematologic / Lymphatic: No Symptoms
Allergy / Immunology: No Symptoms
Physical Exam
-
General: Comfortable
Eyes: No Ptosis
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
Respiratory: No Dyspnea; Negative Accessory Resp Muscle Use
Cardiac: No Murmur
GI: Normal Bowel Sounds, Soft and Non-tender
Skin: Warm and Dry; Negative Rash
Extremities: No Edema
Psych: Other (A bit of a character, interactive and conversational); Negative Agitated
Extended Neurological Exam
Attention Span & Concentration: Awake, Alert and Interactive
Memory: Unremarkable
Tremor: Hand Tremor Absent
Involuntary Movement: None
Speech: Negative Expressive Aphasia, Receptive Aphasia or Dysarthric
Cranial Nerve II: Left Eye: Pupillary Reactivity Unremarkable and Pupillary Size Unremarkable
Cranial Nerve II: Right Eye: Pupillary Reactivity Unremarkable and Pupillary Size Unremarkable
Cranial Nerves III, IV, : Extraocular Movement: Extraocular Movement Full in all Directions
Muscle Strength, Overall: Other (Right arm more than right leg spastic weakness, left arm and leg 5/5)
Touch Sensation: Unremarkable
Data Reviewed
-
CT Head: Report Reviewed and Image Reviewed
[2023-10-27 10:51] VITALS: BP 121/67
--- NOTE | 2023-10-27 13:25 | W.PN.HOSP.TC ---
Today's Communication/Plan
-
MRI of brain
Change to inpatient given further work up and pt not back to baseline.
Assessment / Plan
Assessment / Plan
Drowsy , Arousable
Not coperative for exam
CVS S1 S2 normal
Chest CTA, decreased
Abd soft
# Breakthrough seizure
Unclear cause for breakthrough seizures
No evidence of infection at present
Elevated Dilantin level
Dilantin being tapered off, 200 mg mg daily for a week then continue before we can stop
Continue phenobarbital
Briviact started
Seizure precautions
Reported ataxia-possibly secondary to Dilantin toxicity, and because of long-term toxicity per discussion with neurology
Dilantin levels have normalized
Neurology evaluation noted, discussed this morning
Urinalysis unremarkable.COVID-negative.Chest x-ray without any changes
Pt still not at his baseline.
# History of dysphagia and food impaction summer
Dysphagia diet
Speech eval
Continue PPI
Assistance with all meals
# Sturge-Redman syndrome
# Developmental delay
# Chronic back pain/scoliosis, add lidocaine patch for the neck
# Neuropathy NOS
# Frozen shoulder on the right
# Anxiety/depression-on sertraline
# History of vitamin D deficiency-continue vitamin D supplement
# Sleep apnea-not on CPAP
# CODE STATUS-DNR per discussion with brother and [id number] at bedside
# DVT prophylaxis-Add Lovenox
Discussed with brother at bedside
D/W SHAWN this
Discussed with Dr. Duncan this morning
Anticipated Discharge: 24 - 48 hours
Subjective/Interval History
-
Date of Service: October 27, 2023
Objective Data
-
Labs:
Laboratory Results
10/27/23
06:27
WBC 8.7
Hgb 13.0
Hct 38.7 L
Plt Count 252
Sodium 137
Potassium 4.0
Chloride 102
Carbon Dioxide 27
BUN 16
Creatinine 0.5 L
Glucose 101 H
Calcium 8.9
Vital Signs:
Vital Signs
Temp Pulse Resp BP Pulse Ox
98.8 F 100 22 121/67 92
10/27/23 10:51 10/27/23 10:51 10/27/23 10:51 10/27/23 10:51 10/27/23 10:51
I&O
10/26/23 10/27/23 10/28/23
06:59 06:59 06:59
Intake Total 240 / 240
Balance 240 / 240
[2023-10-27 15:37] VITALS: BP 129/80
--- NOTE | 2023-10-27 15:51 | CM ---
onsite case manager reviewed patient's chart and met with patient and patient's Rafi CORNEJO at bedside, patient was admitted under OBS and ELY letter signed patient has now switched to inpatient, IMM provided @ 3pm. Patient resides at [place] assisted
living, patient was able to ambulate to the dining room at the assisted living, per POA patient current state is a big change for patient. Plan is for possible skilled placement, and options were reviewed with Rafi CORNEJO and he has selected [facility], referral sent to [facility].
Plan; Skilled placement at [facility]. referral sent to [facility].
[2023-10-27] MEDS: LOVENOX 40 MG SC (17:43)
[2023-10-27 19:25] VITALS: BP 106/66
[2023-10-27] MEDS: LUMINAL 97.2000000000000028 MG PO (21:17)
[2023-10-27] MEDS: DILANTIN 200 MG PO (21:17)
[2023-10-27 23:29] VITALS: BP 106/70
[2023-10-28 03:29] VITALS: BP 131/80
[2023-10-28 06:00] VITALS: BMI 29.4
[2023-10-28 07:44] VITALS: BP 133/76
[2023-10-28] MEDS: LIDOCAINE 4% PATCH 1 PATCH TOPICAL (07:47)
[2023-10-28] MEDS: VITAMIN B-12 1000 MCG PO (07:48)
[2023-10-28] MEDS: PROTONIX 40 MG PO (07:48)
[2023-10-28] MEDS: VITAMIN D3 (cholecalciferol) 25 MCG PO (07:48)
[2023-10-28] MEDS: BRIVIACT 50 MG PO ×2 (07:48→21:10)
[2023-10-28] MEDS: ZOLOFT 25 MG PO (07:48)
[2023-10-28 11:37] LABS: Glucose - Point of Care 119 mg/dl (70-99)
[2023-10-28 11:46] VITALS: BP 102/70
[2023-10-28 14:20] LABS: COVID-19 Antigen Negative (Negative)
[2023-10-28 15:15] VITALS: BP 107/61
--- NOTE | 2023-10-28 16:13 | W.PN.HOSP.TC ---
Today's Communication/Plan
-
Watch temperature
Labs
PT OT
Wound care
Assessment / Plan
Assessment / Plan
Chatty today,
Awake alert and
Not cooperative for exam
CVS S1 S2 normal
Chest CTA, decreased
Abd soft
# Breakthrough seizure
Unclear cause for breakthrough seizures
No evidence of infection at present
Elevated Dilantin level
Dilantin being tapered off, 200 mg mg daily for a week then continue taper and stop
(11/01 decrease phenytoin to 100 mg HS,11/08 stop phenytoin completely)
Continue phenobarbital
Briviact started
Seizure precautions
Reported ataxia-possibly secondary to Dilantin toxicity, and because of long-term toxicity per discussion with neurology
Dilantin levels have normalized
Neurology evaluation noted, discussed this morning
Urinalysis unremarkable.COVID-negative.Chest x-ray without any changes
He is much more awake and alert and conversant. Pt still not at his baseline in regards to his strength..
# Fever of 100.5
COVID test repeated negative
Check labs if has any more fevers consider blood culture
I wonder if he had a viral infection which triggered all this
# History of dysphagia and food impaction summer
Dysphagia diet
Speech eval if needed
Continue PPI
Assistance with all meals
# Sturge-Redman syndrome
# Developmental delay
# Chronic back pain/scoliosis, add lidocaine patch for the neck
# Neuropathy NOS
# Frozen shoulder on the right
# Anxiety/depression-on sertraline
# History of vitamin D deficiency-continue vitamin D supplement
# Small ulcers on the legs
Large area of abrasion on the right hip area
Possibly from trauma
Wound care consult
# Sleep apnea-not on CPAP
# CODE STATUS-DNR per discussion with brother and [id number] at bedside
# DVT prophylaxis-Lovenox
Discussed with [id number]-cig Dr. Portillo at bedside
Discussed with nursing
Anticipated Discharge: 24 - 48 hours
Subjective/Interval History
-
Date of Service: October 28, 2023
Objective Data
-
Labs:
Laboratory Results
10/28/23
13:39
WBC Pending
Hgb Pending
Hct Pending
Plt Count Pending
Sodium Pending
Potassium Pending
Chloride Pending
Carbon Dioxide Pending
BUN Pending
Creatinine Pending
Glucose Pending
Calcium Pending
Vital Signs:
Vital Signs
Temp Pulse Resp BP Pulse Ox
100.5 F H 105 22 107/61 94
10/28/23 15:15 10/28/23 15:15 10/28/23 15:15 10/28/23 15:15 10/28/23 15:15
I&O
10/27/23 10/28/23 10/29/23
06:59 06:59 06:59
Intake Total 240 / 240 360 / 360
Output Total 250 / 250
Balance 240 / 240 110 / 110
[2023-10-28 17:02] LABS: Hematocrit 37.6 % (39.0-52.0); Hemoglobin 13.1 g/dL (13.0-18.0); Mean Corp Hgb Conc. 34.8 g/dL (33.0-37.0); Mean Corpuscular Hgb 32.3 pg (27.0-31.0); Mean Corpuscular Volume 92.8 fL (80.0-94.0); Mean Platelet Volume 8.9 fL (7.4-10.4); Platelet Count 274 10^3/uL (130-400); Red Blood Cell Count 4.05 10^6/uL (4.70-6.10); Red Cell Dist. Width 13.7 % (11.5-14.5); White Blood Cell Count 9.2 10^3/uL (4.8-10.8)
[2023-10-28 17:13] LABS: Blood Urea Nitrogen 17 mg/dl (9-20); Calcium 8.6 mg/dl (8.4-10.2); Carbon Dioxide 26 mmol/L (22-30); Chloride 106 mmol/L (98-107); Estimated Creatinine Clearance 91 ml/min; Glucose 118 mg/dl (70-99); Potassium 4.4 mmol/L (3.5-5.1); Sodium 134 mmol/L (135-145); eGFR > 60.00
[2023-10-28] MEDS: LOVENOX 40 MG SC (18:22)
--- NOTE | 2023-10-28 18:27 | W.PN.UPDATE ---
Update Note
Progress Note Update
vomiting. Will check ABdomen X ray
--- NOTE | 2023-10-28 18:31 | PTCARENOTE ---
Patient had [address] episodes [address] vomiting [address] Dr[address] Devlin notified. zofran and abdominal xray ordered
[2023-10-28] MEDS: ZOFRAN 4 MG IV (18:36)
[2023-10-28 19:45] VITALS: BP 110/76
[2023-10-28] MEDS: LUMINAL 97.2000000000000028 MG PO (21:46)
[2023-10-28] MEDS: DILANTIN 200 MG PO (21:46)
[2023-10-28 23:23] VITALS: BP 130/80
[2023-10-29] VITALS (7 sets, daily range): BP systolic 119–141; BP diastolic 72–83; PULSE 98; O2SAT 92; BMI 29.2
[2023-10-29] MEDS: SENOKOT 8.59999999999999964 MG PO ×2 (00:26→21:19)
[2023-10-29] MEDS: DULCOLAX 10 MG RECTAL (00:26)
--- NOTE | 2023-10-29 06:50 | W.PN.HOSP.TC ---
Today's Communication/Plan
-
cont PT/OT
sz medications as per Neuro
Aquaphor right ankle
fever curve
Monitor white count
Assessment / Plan
Assessment / Plan
Physical Exam
General: No acute distress appears comfortable at this time
Pulm: Clear to auscultation b/l
Cardio: S1/S2 no murmurs rubs gallops
Abd: soft nontender bowel sounds present
Ext: right ankle erythema suspect contact dermatitis
Neuro: Awake alert conversant, exhibits memory issues (reporting grandmother passing away 3 weeks ago when passing was actually 31 years ago as per family at bedside) sometimes tangential speech, mental status however baseline as per family bedside
73M sz d/o developmental delay sleep apnea kyphosis rt frozen shoulder hx food impaction Sturge-Redman Anxiety here for breakthrough sz.
# Breakthrough seizure
Unclear cause for breakthrough seizures
No evidence of infection at present
Elevated Dilantin level
Dilantin being tapered off, 200 mg mg daily for a week then continue taper and stop
(11/01 decrease phenytoin to 100 mg HS,11/08 stop phenytoin completely)
Continue phenobarbital
Briviact started
Seizure precautions
Reported ataxia-possibly secondary to Dilantin toxicity, and because of long-term toxicity per discussion with neurology
Dilantin levels have normalized
Neurology evaluation noted, discussed this morning
Urinalysis unremarkable.COVID-negative.Chest x-ray without any changes
Mental status appears baseline at this time. Physically deconditioned
# Fever of 100.5
COVID test repeated negative
resolved but continues to spike low grade feveres <100.5
no white count
will cont to monitor for now, suspect viral illness self limited
#Episode Vomiting abd XR 10/28 noted Moderate fecal material throughout the colon.
Constipation however since resolved with bowel regimen, no further episodes nausea vomiting
# History of dysphagia and food impaction summer
Dysphagia diet
Speech eval if needed
Continue PPI
Assistance with all meals
#Right ankle rash contact dermatitis
acquaphor
conservative mgmt monitoring for now
# Sturge-Redman syndrome
# Developmental delay
# Chronic back pain/scoliosis, add lidocaine patch for the neck
# Neuropathy NOS
# Frozen shoulder on the right
# Anxiety/depression-on sertraline
# History of vitamin D deficiency-continue vitamin D supplement
# Small ulcers on the legs
Large area of abrasion on the right hip area
Possibly from trauma
Wound care consult
# Sleep apnea-not on CPAP
# CODE STATUS-DNR per discussion with brother and [id number] at bedside
# DVT prophylaxis-Lovenox
Discussed with [id number] Dr. Portillo, patient's Brother Rafi, and [id number] Gigi
I spent a total of 57 minutes with the patient or on the floor. More than 50% of this time involved counseling and coordination of care.
Anticipated Discharge: 24 - 48 hours
Subjective/Interval History
-
Date of Service: October 29, 2023
No acute distress. Mental status baseline as per family at bedside. New rash noted right ankle likely eczema/contact dermatitis
Objective Data
-
Vital Signs:
Vital Signs
Temp Pulse Resp BP Pulse Ox
98.4 F 104 18 120/75 95
10/29/23 03:43 10/29/23 03:43 10/29/23 03:43 10/29/23 03:43 10/29/23 03:43
I&O
10/27/23 10/28/23 10/29/23
06:59 06:59 06:59
Intake Total 240 / 240 360 / 360 1200 / 1200
Output Total 250 / 250 300 / 300
Balance 240 / 240 110 / 110 900 / 900
[2023-10-29] MEDS: LIDOCAINE 4% PATCH 1 PATCH TOPICAL (08:34)
[2023-10-29] MEDS: VITAMIN B-12 1000 MCG PO (08:34)
[2023-10-29] MEDS: PROTONIX 40 MG PO (08:35)
[2023-10-29] MEDS: ZOLOFT 25 MG PO (08:35)
[2023-10-29] MEDS: COLACE 100 MG PO ×2 (08:35→20:38)
[2023-10-29] MEDS: VITAMIN D3 (cholecalciferol) 25 MCG PO (08:35)
[2023-10-29] MEDS: BRIVIACT 50 MG PO ×2 (08:35→20:37)
--- NOTE | 2023-10-29 12:19 | WOUNDNOTE ---
HEELS, R LATERAL ANKLE AND L MEDIAL ANKLE
--- NOTE | 2023-10-29 12:25 | WOUNDNOTE ---
WON RN note: Patient admitted with altered mental status,seizure recent fall.
See H&P for complete history.
PMH: Seizures or epilepsy, birthmark to center of forehead/nose, anxiety, back pain and developmental delays.
Wound Location and type/assessment: Patient admitted with: multiple abrasions on R hip, L knee, ankles and feet. Patient had a seizure at [facility] and found on floor. Brother Rafi at bedside unsure of how long patient on floor, patient is poor
historian. With assist from nursing, turned patient onto sides. R hip appears as a rug burn, partial thickness, red weeping area. R lateral ankle and L medial ankle with abrasions, R ankle weeping. R great toe and L dorsal foot/toes with intact dry
scabs and scratch pham to areas. Heels are intact, buttocks and sacrum intact.
Appetite: Good.
Pressure redistribution devices in place: On [employer], turns with assist. Pillow under calves. Air cushion when sitting.
Plan: Applied adaptic and silicone foams to R hip and R ankle, all other scabs skin prep applied. Repositioned onto L semi side lying position with nurse assist. Will confirm orders with hospitalist and updated nurse Gisel.
Updated care plan and will follow as needed.
Note to case management of equipment requested for discharge: None.
[2023-10-29] MEDS: TYLENOL 650 MG PO ×2 (14:50→23:21)
[2023-10-29] MEDS: LOVENOX 40 MG SC (17:29)
[2023-10-29] MEDS: HYDROPHOR 1 APPLIC TOPICAL (20:31)
[2023-10-29] MEDS: LUMINAL 97.2000000000000028 MG PO (21:19)
[2023-10-29] MEDS: DILANTIN 200 MG PO (21:20)
[2023-10-30 03:31] VITALS: BP 125/80
--- NOTE | 2023-10-30 04:40 | PTCARENOTE ---
Patient vomited small amount of brown colored thick emesis at 2200. Tylenol given for 100.6 temp at 2321. Temp at 0331 98.6. Patient incontinent of stool. Plan of care continues.
[2023-10-30 06:00] VITALS: BMI 28.6
[2023-10-30 06:26] LABS: Hematocrit 39.5 % (39.0-52.0); Hemoglobin 13.5 g/dL (13.0-18.0); Mean Corp Hgb Conc. 34.2 g/dL (33.0-37.0); Mean Corpuscular Hgb 32.1 pg (27.0-31.0); Mean Platelet Volume 9.6 fL (7.4-10.4); Platelet Count 316 10^3/uL (130-400); Red Cell Dist. Width 13.5 % (11.5-14.5); White Blood Cell Count 10.8 10^3/uL (4.8-10.8)
[2023-10-30 06:48] LABS: Blood Urea Nitrogen 19 mg/dl (9-20); Calcium 9.1 mg/dl (8.4-10.2); Carbon Dioxide 28 mmol/L (22-30); Chloride 100 mmol/L (98-107); Estimated Creatinine Clearance 90 ml/min; Glucose 117 mg/dl (70-99); Magnesium 2.3 mg/dl (1.6-2.3); Phosphorus 4.5 mg/dl (2.5-4.5); Potassium 4.5 mmol/L (3.5-5.1); Sodium 137 mmol/L (135-145); eGFR > 60.00
[2023-10-30 07:44] VITALS: BP 112/78
--- NOTE | 2023-10-30 07:53 | W.PN.HOSP.TC ---
Today's Communication/Plan
-
check blood cultures
bladder scan w/ straight cath prn as per protocol
urinalysis reflex cultures
empiric Cefipime
ID eval
cont sz medications
Assessment / Plan
Assessment / Plan
Physical Exam
General: No acute distress appears comfortable at this time
Pulm: Clear to auscultation b/l
Cardio: S1/S2 no murmurs rubs gallops
Abd: soft nontender bowel sounds present
Ext: right ankle erythema suspect contact dermatitis
Neuro: Awake alert conversant, exhibits memory issues, sometimes tangential speech, mental status appears near baseline
73M sz d/o developmental delay sleep apnea kyphosis rt frozen shoulder hx food impaction Sturge-Redman Anxiety here for breakthrough sz.
# Breakthrough seizure
Unclear cause for breakthrough seizures
No evidence of infection at present
Elevated Dilantin level
Dilantin being tapered off, 200 mg mg daily for a week then continue taper and stop
(11/01 decrease phenytoin to 100 mg HS,11/08 stop phenytoin completely)
Continue phenobarbital
Briviact started
Seizure precautions
Reported ataxia-possibly secondary to Dilantin toxicity, and because of long-term toxicity per discussion with neurology
Dilantin levels have normalized
Neurology evaluation noted, discussed this morning
Urinalysis unremarkable.COVID-negative.Chest x-ray without any changes
Mental status appears baseline at this time. Physically deconditioned
# Persistent intermittent Low grade Fever
COVID test repeated negative
no leukocytosis
checking blood cultures
empiric cefipime started
ID eval requested
Acute Retention likely d/t poor ambulatory status
-bladder scan with straight cath prn as per protocol for now
-check urinalysis
#Episode Vomiting abd XR 10/28 noted Moderate fecal material throughout the colon.
Constipation however since resolved with bowel regimen, some sporadic intermittent episodes vomiting in association with fever as above noted
# History of dysphagia and food impaction summer
Dysphagia diet
Speech eval if needed
Continue PPI
Assistance with all meals
#Right ankle rash contact dermatitis
acquaphor
# Sturge-Redman syndrome
# Developmental delay
# Chronic back pain/scoliosis, add lidocaine patch for the neck
# Neuropathy NOS
# Frozen shoulder on the right
# Anxiety/depression-on sertraline
# History of vitamin D deficiency-continue vitamin D supplement
# Small ulcers on the legs
Large area of abrasion on the right hip area
Possibly from trauma
Wound care consult
# Sleep apnea-not on CPAP
# CODE STATUS-DNR per discussion with brother and [id number] at bedside
# DVT prophylaxis-Lovenox
PT/OT eval appreciated SNF rehab, anticipate need for SNF to be less 30 days
Discussed with [id number] Dr. Portillo and patient's Brother Rafi
I spent a total of 57 minutes with the patient or on the floor. More than 50% of this time involved counseling and coordination of care.
Anticipated Discharge: 24 - 48 hours
Subjective/Interval History
-
Date of Service: October 30, 2023
Seen and examined at bedside in no acute distress resting comfortably in bed. Mild erythema right ankle persists. mild grade fevers also persists. Patient otherwise appears well. Noted overnight events episode small vomiting in association with
fever.
Objective Data
-
Labs:
Laboratory Results
10/30/23
05:19
WBC 10.8
Hgb 13.5
Hct 39.5
Plt Count 316
Sodium 137
Potassium 4.5
Chloride 100
Carbon Dioxide 28
BUN 19
Creatinine 0.5 L
Glucose 117 H
Calcium 9.1
Vital Signs:
Vital Signs
Temp Pulse Resp BP Pulse Ox
98.6 F 103 18 125/80 92
10/30/23 03:31 10/30/23 03:31 10/30/23 03:31 10/30/23 03:31 10/30/23 03:31
I&O
10/29/23 10/30/23 10/31/23
06:59 06:59 06:59
Intake Total 1200 / 1200 840 / 840
Output Total 300 / 300
Balance 900 / 900 840 / 840
[2023-10-30] MEDS: VITAMIN B-12 1000 MCG PO (08:52)
[2023-10-30] MEDS: BRIVIACT 50 MG PO ×2 (08:52→20:30)
[2023-10-30] MEDS: COLACE 100 MG PO ×2 (08:52→20:30)
[2023-10-30] MEDS: PROTONIX 40 MG PO (08:52)
[2023-10-30] MEDS: VITAMIN D3 (cholecalciferol) 25 MCG PO (08:52)
[2023-10-30] MEDS: ZOLOFT 25 MG PO (08:53)
[2023-10-30] MEDS: HYDROPHOR 1 APPLIC TOPICAL (08:53)
[2023-10-30] MEDS: LIDOCAINE 4% PATCH 1 PATCH TOPICAL (08:54)
[2023-10-30] MEDS: STERILE WATER FOR INJECTION 10 ML IV (10:32)
[2023-10-30] MEDS: MAXIPIME 2000 MG IV (10:32)
[2023-10-30 11:27] VITALS: BP 110/69
[2023-10-30] MEDS: TYLENOL 650 MG PO (12:41)
[2023-10-30 15:43] VITALS: BP 96/62
--- NOTE | 2023-10-30 15:54 | CON.ID ---
Consultation
-
Date/Time Consultation Requested: 10/30/2023 09:54
Date/Time Consultation Performed: 10/30/2023 1543
Requesting Provider: Dr. Loyd
Performing Provider: Dr. Campos
Reason for Consultation: Fever
Chief Complaint / Past History
History of Present Illness
Jayme Cao is a 73-year-old man with a significant past medical history of seizure disorder, Sturge-Redman syndrome and intellectual disability being evaluated at the request of Dr. Loyd in regards to fever. History is obtained from chart
review, along with patient interview, although patient was found to be able to provide very little in the way of history.
The patient presented to [facility] on secondary to a possible seizure. He was reportedly found on the floor, and EMS was called and brought him to the hospital. He was initially afebrile, but temperature curve began to increase
several days into admission. Current Tmax is noted to be 100.6 degrees. Infectious Diseases is asked to comment on further antimicrobial therapy and fever workup.
At this time, the patient denies any pain. He denies any cough or congestion. He denies any headache. He denies any abdominal pain. He denies any dysuria.
Further history is limited.
Past History
Additional Past Medical History:
Seizure disorder
Anxiety
Sturge-Redman syndrome
Frozen shoulder
Intellectual disability
Sleep apnea
Additional Past Surgical History:
Brain tumor resection in childhood
Allergy History:
No Known Allergies Allergy (Verified 10/25/23 15:00)
Medications Reviewed: Yes
Current Antibiotics:
Cefepime 2 g IV every 12 hours
Social History
Tobacco: Non-Smoker
Alcohol: None
Drug: None
Personal: Single
Living: Assisted Living
Employment: Disabled
Family History
Family History: Not Pertinent
Review of Systems
Vital Signs
Temp Pulse Resp BP Pulse Ox
100.6 F H 104 18 110/69 96
10/30/23 11:27 10/30/23 11:27 10/30/23 11:27 10/30/23 11:27 10/30/23 11:27
Physical Exam
Physical Exam
Constitutional: No Acute Distress, Comfortable and Non-toxic
Eyes: No Conjunctival Hemorrhage and Sclera Anicteric
Cardiovascular: Regular Rate and S1/S2; Negative S3/S4
Pulmonary: Clear and Non Labored; Negative Wheezes, Rales or Rhonchi
Gastrointestinal: Soft, Non Tender, Non Distended, Normal Bowel Sounds, No Rebound and No Guarding
Genito-Urinary: Negative Perez, Suprapubic Tenderness or CVA Tenderness
Extremities: Negative Edema, Cyanosis, Erythema, Splinter Hemorrhage, Venous Insufficiency or Janeway Lesions
Musculoskeletal: Negative Joint Swelling or Joint Effusion
Skin: Warm and Dry; Negative Rash or Jaundice
Neurological: Awake and Alert
Psychological: Calm
Lab / Diagnostic Study Results
10/30/23 05:19
10/30/23 05:19
Microbiology Results
Micro:
10/30/23 10:32 Blood Culture - Pending
Blood/Venous
10/30/23 09:49 Blood Culture - Pending
Blood/Venous
10/25/23 16:21 Influenza Types A & B (LUCIA) - Final
Nasal Swab Negative for Influenza A & B, NAAT
Negative results must be combined with clinical observations
and patient history.
Nucleic Acid Amplification test (NAAT)performed on the
[employer] platform.
Assessment / Plan
Fever
Possibly drug fever, versus viral illness.
No evidence of a bacterial infection at present
Seizure disorder with breakthrough seizures
Anxiety
Sturge-Redman syndrome
Frozen shoulder
Intellectual disability
Sleep apnea
Recommendations:
At present, no evidence of a bacterial infection.
Would discontinue further cefepime.
Monitor temperature curve, with further workup if fevers persist
Cultures have been obtained and are pending.
Care Review
Plan reviewed with: Physician (Hospitalist)
[2023-10-30] MEDS: LOVENOX 40 MG SC (17:45)
[2023-10-30 18:52] LABS: Urine Albumin Trace (Neg - Trace); Urine Bilirubin 1+ (Negative); Urine Character Clear (Clear); Urine Color Yellow; Urine Glucose Negative (Negative); Urine Ketone Negative (Negative); Urine Leukocyte 2+ (Negative); Urine Nitrite Negative (Negative); Urine Occult Blood Negative (Negative); Urine Specific Gravity 1.015 (<1.030); Urine Urobilinogen Negative (Neg - 1+)
[2023-10-30 18:59] LABS: Urine Red Blood Cell None Seen /HPF (0-2); Urine Squamous Cell 0-2 /LPF (Few)
[2023-10-30 19:00] LABS: Urine Bacteria Moderate (Negative); Urine White Cell 50-60 /HPF (0-5)
[2023-10-30 19:40] VITALS: BP 131/76
[2023-10-30] MEDS: SENOKOT 8.59999999999999964 MG PO (21:15)
[2023-10-30] MEDS: DILANTIN 200 MG PO (21:16)
[2023-10-30] MEDS: LUMINAL 97.2000000000000028 MG PO (21:16)
[2023-10-30 23:26] VITALS: BP 120/84
[2023-10-31] VITALS (8 sets, daily range): BP systolic 108–127; BP diastolic 71–91; PULSE 100; O2SAT 92; BMI 28.4
--- NOTE | 2023-10-31 08:07 | W.PN.HOSP.TC ---
Today's Communication/Plan
-
follow cultures
bladder scan w/ straight cath prn, loosened threshold for cath to 500 cc for now, monitor renal function
monitor off abx as per ID
cont sz medications
6 small meals a day
GI eval
bowel regimen
Assessment / Plan
Assessment / Plan
Physical Exam
General: No acute distress appears comfortable at this time
Pulm: Clear to auscultation b/l
Cardio: S1/S2 no murmurs rubs gallops
Abd: soft nontender bowel sounds present
Ext: right ankle erythema suspect contact dermatitis
Neuro: Awake alert conversant, exhibits memory issues, sometimes tangential speech, mental status appears near baseline
73M sz d/o developmental delay sleep apnea kyphosis rt frozen shoulder hx food impaction Sturge-Redman Anxiety here for breakthrough sz.
# Breakthrough seizure
Unclear cause for breakthrough seizures
No evidence of infection at present
Elevated Dilantin level
Dilantin being tapered off, 200 mg mg daily for a week then continue taper and stop
(11/01 decrease phenytoin to 100 mg HS,11/08 stop phenytoin completely)
Continue phenobarbital
Briviact started
Seizure precautions
Reported ataxia-possibly secondary to Dilantin toxicity, and because of long-term toxicity per discussion with neurology
Dilantin levels have normalized
Neurology evaluation noted, discussed this morning
Urinalysis unremarkable.COVID-negative.Chest x-ray without any changes
Mental status appears baseline at this time. Physically deconditioned
# Persistent intermittent Low grade Fever
COVID test repeated negative
no leukocytosis
blood cultures NGTD
urine cx appreciated Enterococcus sensitivities pending, appears to be asymptomatic bacteriuria however
ID eval appreciated monitor off abx, empiric cefipime discontinued,
Acute Retention likely d/t poor ambulatory status
-bladder scan with straight cath prn as per protocol for now, straight cath threshold loosened to 500 cc for now given relatively asymptomatic, patient able to void, no DONIS
-urinalysis appreciated as above
#Episode Vomiting abd XR 10/28 noted Moderate fecal material throughout the colon.
#continued episodes intermittent vomiting possibly due to constipation vs gastroparesis
cont bowel regimen miralax docusate senna
diet converted to 6 small meals a day
# History of dysphagia and food impaction summer
Dysphagia diet
Continue PPI
Assistance with all meals
#Right ankle rash contact dermatitis
acquaphor
# Sturge-Redman syndrome
# Developmental delay
# Chronic back pain/scoliosis, add lidocaine patch for the neck
# Neuropathy NOS
# Frozen shoulder on the right
# Anxiety/depression-on sertraline
# History of vitamin D deficiency-continue vitamin D supplement
# Small ulcers on the legs
Large area of abrasion on the right hip area
Possibly from trauma
Wound care consult appreciated
cont wound care
# Sleep apnea-not on CPAP
# CODE STATUS-DNR
# DVT prophylaxis-Lovenox
PT/OT eval appreciated SNF rehab, anticipate need for SNF to be less 30 days
I spent a total of 55 minutes with the patient or on the floor. More than 50% of this time involved counseling and coordination of care.
Anticipated Discharge: 24 - 48 hours
Subjective/Interval History
-
Date of Service: October 31, 2023
No acute distress appears comfortable. Continues to spike low grade fever but less frequent. Day's event notable for episode vomiting and urinary retention requiring straight cath.
Objective Data
-
Vital Signs:
Vital Signs
Temp Pulse Resp BP Pulse Ox
98.0 F 95 18 127/82 92
10/31/23 03:23 10/31/23 03:23 10/31/23 03:23 10/31/23 03:23 10/31/23 03:23
I&O
10/30/23 10/31/2324
06:59 06:59 06:59
Intake Total 840 / 840 240 / 240
Output Total 1550 / 1550
Balance 840 / 840 -1310 / -1310
[2023-10-31] MEDS: BRIVIACT 50 MG PO ×2 (08:55→20:11)
[2023-10-31] MEDS: VITAMIN B-12 1000 MCG PO (08:55)
[2023-10-31] MEDS: ZOLOFT 25 MG PO (08:55)
[2023-10-31] MEDS: VITAMIN D3 (cholecalciferol) 25 MCG PO (08:55)
[2023-10-31] MEDS: LIDOCAINE 4% PATCH 1 PATCH TOPICAL (08:55)
[2023-10-31] MEDS: COLACE 100 MG PO (08:55)
[2023-10-31] MEDS: PROTONIX 40 MG PO (08:55)
[2023-10-31] MEDS: HYDROPHOR 1 APPLIC TOPICAL (08:56)
--- NOTE | 2023-10-31 11:15 | CM ---
PT Ot recommended SNf.
He lives at [place]. Bed ready at [facility] at pr.
IV antibiotics completed.
Pt has Medicare no auth needed.
Brother in agreement with [facility] at pr.
PLAN to [facility] when medical ready
[2023-10-31] MEDS: TYLENOL 650 MG PO ×2 (13:29→20:10)
[2023-10-31] MEDS: ZOFRAN 4 MG IV (15:59)
--- NOTE | 2023-10-31 16:03 | PTCARENOTE ---
Patient with vomiting this shift after eating lunch. Hospitalist made aware. GABY easton ordered, see MAR.
[2023-10-31] MEDS: LOVENOX 40 MG SC (17:14)
--- NOTE | 2023-10-31 17:35 | W.PN.ID1 ---
Date of Service
Date of Service: October 31, 2023
Today's Communication
Observe off abx for now.
Assessment / Plan
Fever
Possibly drug fever, versus viral illness.
Improved temp curve past 24h
No evidence of a bacterial infection at present
Seizure disorder with breakthrough seizures
Anxiety
Sturge-Redman syndrome
Frozen shoulder
Intellectual disability
Sleep apnea
Recommendations:
UA and urine culture noted. Pt asymptomatic.
Await final sensitivities.
Monitor temperature curve, with further workup if fevers persist
Chief Complaint
-: Fever
Vital Signs / Physical Exam
Vital Signs
Vital Signs
Temp Pulse Resp BP Pulse Ox
99.6 F 102 24 121/91 95
10/31/23 15:30 10/31/23 15:30 10/31/23 15:30 10/31/23 15:30 10/31/23 15:30
Physical Exam
Constitutional: No Acute Distress, Comfortable, Chronically Ill and Non-toxic
Cardiovascular: S1/S2; Negative S3/S4
Pulmonary: Non Labored
Gastrointestinal: Non Distended
Neurological: Awake
Psychological: Calm
Objective Data
Lab Data
Lab Results
10/30/23 05:19
10/30/23 05:19
Estimated Creat Clear 90 ml/min 10/30/23 05:19
Most recent labs reviewed.
Micro Results:
10/30/23 18:28 Urine Culture - Preliminary
Urine Enterococcus species
10/30/23 10:32 Blood Culture - Preliminary
Blood/Venous No Growth in 24 hours- Final report to follow
10/30/23 09:49 Blood Culture - Preliminary
Blood/Venous No Growth in 24 hours- Final report to follow
10/25/23 16:21 Influenza Types A & B (LUCIA) - Final
Nasal Swab Negative for Influenza A & B, NAAT
Negative results must be combined with clinical observations
and patient history.
Nucleic Acid Amplification test (NAAT)performed on the
[employer] platform.
[2023-10-31] MEDS: SENOKOT-S 1 TABLET PO (20:11)
[2023-10-31] MEDS: FLOMAX 0.400000000000000022 MG PO (21:25)
[2023-10-31] MEDS: LUMINAL 97.2000000000000028 MG PO (21:25)
[2023-10-31] MEDS: DILANTIN 200 MG PO (21:26)
[2023-11-01] VITALS (7 sets, daily range): BP systolic 96–125; BP diastolic 58–80; BMI 28.2
[2023-11-01 06:27] LABS: Hematocrit 38.5 % (39.0-52.0); Mean Corp Hgb Conc. 33.8 g/dL (33.0-37.0); Mean Corpuscular Hgb 31.6 pg (27.0-31.0); Mean Corpuscular Volume 93.4 fL (80.0-94.0); Mean Platelet Volume 9.4 fL (7.4-10.4); Platelet Count 329 10^3/uL (130-400); Red Blood Cell Count 4.12 10^6/uL (4.70-6.10); Red Cell Dist. Width 13.3 % (11.5-14.5); White Blood Cell Count 7.7 10^3/uL (4.8-10.8)
--- NOTE | 2023-11-01 06:33 | CON.GI ---
Addendum entered and electronically signed by Maritza Singh MD 11/01/23 15:56:
Correction to my note from below LFTs with mildly elevated ALT otherwise unremarkable
Addendum entered and electronically signed by Maritza Singh MD 11/01/23 15:54:
I saw and examined the patient.
The ASSISTANT CREDIT MANAGER's note was reviewed and I agree with the note.
Comment: This is a 73-year-old male who has a history of seizure disorder and rest medical history as below who was admitted on the with seizures and has been evaluated by neurology with change in regimen. We were consulted for symptoms of
nausea and vomiting intermittently since admission, yesterday he had larger episode of vomiting. Discussed with his brother who is currently by the bedside he has been having intermittent vomiting after meals. He had constipation noted on abdomen
x-ray on 10/27. He also had a fever and was started on antibiotics today for UTI, hard to obtain history because of his underlying intellectual disability, family was able to provide history at bedside. He currently looks comfortable, no abdominal
discomfort or pain was reported.
10/31 obstruction series : IMPRESSION:
Extremely low lung volumes. Mild bibasilar opacity most likely representing subsegmental atelectasis.
Nonobstructive bowel gas pattern. No free air. Moderate colonic stool again seen.
Assessment and plan intermittent episodes of nausea vomiting most likely was related to initially seizure and also may be related to UTI or probable viral illness. Repeat obstruction series from today noted with constipation no bowel obstruction
seen. LFTs and lipase from today are normal. He does have prior history of food impaction with esophagitis and tortuous esophagus noted in 2021. Encourage small frequent meals, doubt gastroparesis since he did not have symptoms prior to
admission. Also scheduled for abdomen ultrasound we will follow-up.
Original Note:
Consultation
-
Date/Time Consultation Requested: 10/31/23 1600
Date/Time Consultation Performed: 11/01/23 0730
Requesting Provider: Grabiel Loyd MD
Performing Provider: Kira Kriney, SINGLE RESOURCE BOSSMaritza VASQUEZ MD
Reason for Consultation: vomiting
Medical History
Chief Complaint / HPI
Chief Complaint: vomiting
History of Present Illness:
Pt is a 73yo presents with hx Seizure, sturge-cervantes syndrome with intellectual disability, prior food impaction with� admission with seizure. He has been seen by neurology with change in seizure regiment and plan to wean off phenytoin. �
Since admission pt had been noted with fever with ID eval� and also noted with vomiting.� Abd film 10/27 with noted moderate stool in colon. � In reviewing with brother and sister in law pt with noted new episode of vomiting since admission. He has
also had issues with urinary retention. He appears to have episodes of vomiting bile about 1-2 hours after meals more in evening. In reviewing with staff some small stools.
Pt poor historian and difficulty for pain assessment but currently denies dysphagia, GERD, abdominal pain, diarrhea, or rectal bleeding. No hx colonoscopy in past.
EGD 03/2022- costa food in lower 1/3 of esophagus with removal, mild severe esophagitis torturous esophagus normal stomach and duodenum.
EGD 10/2017 - Mickie� for in middle third of esophagus, non severe erosive esophagitis, normal stomach and duodenum
Past Medical History
Past Medical History: Seizures, Psychiatric (anxiety) and Other (sturge Cervantes syndrome, frozen Shoulder, intellectual disability, sleep apnea�)
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
Social History
Tobacco: Non-Smoker
Alcohol: None
Personal: Single
Living: Assisted Living
Employment: Disabled
Family History
Family History: Other (Prostate cancer father, breast cancer Sister, colon cancer mother)
Allergies / Home Medications
Allergy/AdvReac Type Severity Reaction Status Date / Time
No Known Allergies Allergy Verified 10/25/23 15:00
Medication Instructions Recorded
phenobarbital 97.2 mg tablet 97.2 mg PO HS Seizures ##0 08/19/14
cyanocobalamin (vitamin B-12) 1,000 mcg PO DAILY Supplement ##0 05/07/16
1,000 mcg tablet,extended release
diphenhydramine HCl 25 mg capsule 25 mg PO Q4HPRN PRN swelling #20 08/29/18
(Banophen) caps
acetaminophen 325 mg tablet 650 mg PO Q4HPRN PRN pain/fever 04/03/22
cholecalciferol (vitamin D3) 25 25 mcg PO DAILY Supplement 10/25/23
mcg (1,000 unit) tablet (Vitamin
D3)
phenytoin sodium extended 100 mg 100 mg PO BID@0800,2100 Seizures 10/25/23
capsule
phenytoin sodium extended 100 mg 200 mg PO DAILY@1700 Seizures 10/25/23
capsule
pantoprazole 40 mg granules 40 mg PO DAILY Gastrointestinal 10/26/23
delayed-release for susp in packet Issue
(Protonix)
sertraline 25 mg tablet 25 mg PO DAILY Depression 10/26/23
Review of Systems
-
History Source: Patient and Family
Constitutional: Reports Fever and Weight Loss (few lbs )
EENT: Reports No Symptoms
Respiratory: Reports No Symptoms
Cardiac: Reports No Symptoms
Abdomen/GI: Reports Nausea and Vomiting
: Reports Other (urinary retention)
Musculoskeletal: Reports No Symptoms
Skin: Reports No Symptoms
Neurological: Reports Weakness
Endocrine: Reports No Symptoms
Hematologic/Lymphatic: Reports No Symptoms
Vital Signs
Temp Pulse Resp BP Pulse Ox
97.9 F 93 18 125/80 94
11/01/23 03:35 11/01/23 03:35 11/01/23 03:35 11/01/23 03:35 11/01/23 03:35
Physical Exam
Exam
General: Well Developed, Well Nourished and No Apparent Distress
HEENT: Normocephalic
Respiratory: Clear
GI: Soft, Non Tender and Non Distended
Rectal: Other (no completed per family would be very difficult for patient )
Musculoskeletal: No Clubbing and No Cyanosis
Skin: Warm and Dry
Neuro: Awake and Alert
Psych: Calm
Results
WBC 7.7 10^3/uL (4.8-10.8) 11/01/23 05:28
Hgb 13.0 g/dL (13.0-18.0) 11/01/23 05:28
Hct 38.5 % (39.0-52.0) L 11/01/23 05:28
MCV 93.4 fL (80.0-94.0) 11/01/23 05:28
Plt Count 329 10^3/uL (130-400) 11/01/23 05:28
Sodium 137 mmol/L (135-145) 10/30/23 05:19
Potassium 4.5 mmol/L (3.5-5.1) 10/30/23 05:19
Chloride 100 mmol/L (98-107) 10/30/23 05:19
Carbon Dioxide 28 mmol/L (22-30) 10/30/23 05:19
BUN 19 mg/dl (9-20) 10/30/23 05:19
Creatinine 0.5 mg/dL (0.7-1.3) L 10/30/23 05:19
Calcium 9.1 mg/dl (8.4-10.2) 10/30/23 05:19
Hepatitis C Antibody Negative (Negative) 10/26/23 06:32
Diagnostic Image Results:
33 abd film:
IMPRESSION: Moderate fecal material throughout the colon.
No evidence of intestinal obstruction.
Prior GI Procedures:
EGD 03/2022- costa food in lower 1/3 of esophagus with removal, mild severe esophagitis torturous esophagus normal stomach and duodenum.
EGD 10/2017 - Mickie� for in middle third of esophagus, non severe erosive esophagitis, normal stomach and duodenum
Colonoscopy: none
Assessment / Plan
-
Pt is a 73yo presents with hx Seizure, sturge-cervantes syndrome with intellectual disability, prior food impaction with� admission with seizure. He has been seen by neurology with change in seizure regiment and plan to wean off phenytoin. �
Since admission pt had been noted with fever with ID eval� and also noted with vomiting which is post prandial and new since admission.� Abd film 10/27 with noted moderate stool in colon.
-post prandial nausea/vomiting- new symptoms last few days
-seizure on admission
-fever with ID follow drug fever vs viral illness
-urinary retention/enterococcus in urine cx
-ankle dermatitis/leg ulcer
other medical problems:
-hx food impaction
-sturge cervantes syndrome
-developmental delay
-chronic back pain
-frozen shoulder
-anxiety/depression
-sleep apnea
PLAN:
etiology of vomiting unclear related to underlying constipation, related to underlying urinary issues with retention/enterococcus on cx , gallbladder disease (limited exam for abdominal pain) medication related with new changes vs other
will check repeat abd film for constipation -- pt with some stool since 10/27 but may be minimal
with post prandial symptoms add US, LFT's and lipase as per family pt with high pain tolerance and may not communicate pain
cont work up for UTI per ID
small frequent meals
cont PPI daily
monitor with new flomax order for urinary retention
pt newly on Brivaracetam with listed <5% risk Nausea/vomiting
updated brother and sister in law
-
-
Thank you for consultation and allowing me to participate in the patient's care. Please call the environmental sciences professor GI physician during the after hours with any questions or concerns.
[2023-11-01 06:55] LABS: Blood Urea Nitrogen 19 mg/dl (9-20); Calcium 9.1 mg/dl (8.4-10.2); Carbon Dioxide 27 mmol/L (22-30); Chloride 100 mmol/L (98-107); Estimated Creatinine Clearance 80 ml/min; Glucose 108 mg/dl (70-99); Magnesium 2.4 mg/dl (1.6-2.3); Phosphorus 3.8 mg/dl (2.5-4.5); Potassium 4.2 mmol/L (3.5-5.1); Sodium 137 mmol/L (135-145); eGFR > 60.00
--- NOTE | 2023-11-01 07:14 | W.PN.HOSP.TC ---
Today's Communication/Plan
-
abx as per ID
encourage 6 small meals
cont Flomax
bladder scan prn, straight cath retention 500 cc or higher
cont sz medications, Phenytoin to reduce to 100 mg starting tomorrow Sunday, follow up Sunday AM phenobarbital level
cont bowel regimen
Assessment / Plan
Assessment / Plan
Physical Exam
General: No acute distress appears comfortable at this time
Pulm: Clear to auscultation b/l
Cardio: S1/S2 no murmurs rubs gallops
Abd: soft nontender bowel sounds present
Ext: right ankle erythema suspect contact dermatitis
Neuro: Awake alert conversant, exhibits memory issues, sometimes tangential speech, mental status near baseline
73M sz d/o developmental delay sleep apnea kyphosis rt frozen shoulder hx food impaction Sturge-Redman Anxiety here for breakthrough sz.
# Breakthrough seizure
Unclear cause for breakthrough seizures
No evidence of infection at present
Elevated Dilantin level
Dilantin being tapered off, 200 mg mg daily for a week then continue taper and stop
(11/01 decrease phenytoin to 100 mg HS,11/08 stop phenytoin completely)
Continue phenobarbital
Briviact started
Seizure precautions
Reported ataxia-possibly secondary to Dilantin toxicity, and because of long-term toxicity per discussion with neurology
Dilantin levels have normalized
Neurology evaluation noted, discussed this morning
Urinalysis unremarkable.COVID-negative.Chest x-ray without any changes
Mental status appears baseline at this time. Physically deconditioned
# Persistent intermittent Low grade Fever
#Possible UTI
COVID test repeated negative
no leukocytosis
blood cultures NGTD
urine cx appreciated Enterococcus resistant to Tetracycline only
ID eval appreciated Amoxicillin 500 mg PO Q8H 7 days
Acute Retention likely d/t poor ambulatory status
-bladder scan with straight cath prn as per protocol for now, straight cath threshold loosened to 500 cc for now given relatively asymptomatic, patient able to void, no DONIS
-urinalysis appreciated as above
-started on Flomax, continue
#Episode Vomiting abd XR 10/28 noted Moderate fecal material throughout the colon.
#continued episodes intermittent vomiting possibly due to constipation vs gastroparesis
cont bowel regimen miralax docusate senna
diet converted to 6 small meals a day, cont
10/31 Abd US appreciated limited study d/t pt inability to fully cooperate, hepatosplenomegaly, fatty liver disease, Distended Gallbladder, negative Estrada's sign
10/31 Obstruction series appreciated atelectasis, moderate colonic stool, no obstruction
GI eval appreciated
# History of dysphagia and food impaction summer
Dysphagia diet
Continue PPI
Assistance with all meals
#Right ankle rash contact dermatitis
acquaphor
# Sturge-Redman syndrome
# Developmental delay
# Chronic back pain/scoliosis, add lidocaine patch for the neck
# Neuropathy NOS
# Frozen shoulder on the right
# Anxiety/depression-on sertraline
# History of vitamin D deficiency-continue vitamin D supplement
# Small ulcers on the legs
Large area of abrasion on the right hip area
Possibly from trauma
Wound care consult appreciated
cont wound care
# Sleep apnea-not on CPAP
# CODE STATUS-DNR
# DVT prophylaxis-Lovenox
PT/OT eval appreciated SNF rehab, anticipate need for SNF to be less 30 days
I spent a total of 53 minutes with the patient or on the floor. More than 50% of this time involved counseling and coordination of care.
Anticipated Discharge: 24 - 48 hours
Subjective/Interval History
-
Date of Service: November 01, 2023
no acute distress resting comfortably in bed. Awake alert speech tangential but redirectable. [id number] Gigi present during evaluation, reports patient's mental status near baseline, fluctuates as day progresses.
Objective Data
-
Labs:
Laboratory Results
11/01/23
05:28
WBC 7.7
Hgb 13.0
Hct 38.5 L
Plt Count 329
Sodium 137
Potassium 4.2
Chloride 100
Carbon Dioxide 27
BUN 19
Creatinine 0.5 L
Glucose 108 H
Calcium 9.1
Vital Signs:
Vital Signs
Temp Pulse Resp BP Pulse Ox
97.9 F 93 18 125/80 94
11/01/23 03:35 11/01/23 03:35 11/01/23 03:35 11/01/23 03:35 11/01/23 03:35
I&O
10/31/23 11/01/23 11/02/23
06:59 06:59 06:59
Intake Total 240 / 240 360 / 360
Output Total 1550 / 1550 1400 / 1400
Balance -1310 / -1310 -1040 / -1040
[2023-11-01] MEDS: LIDOCAINE 4% PATCH 1 PATCH TOPICAL (08:23)
[2023-11-01] MEDS: VITAMIN D3 (cholecalciferol) 25 MCG PO (08:24)
[2023-11-01] MEDS: PROTONIX 40 MG PO (08:24)
[2023-11-01] MEDS: HYDROPHOR 1 APPLIC TOPICAL (08:24)
[2023-11-01] MEDS: SENOKOT-S 1 TABLET PO ×2 (08:24→19:38)
[2023-11-01] MEDS: VITAMIN B-12 1000 MCG PO (08:24)
[2023-11-01] MEDS: ZOLOFT 25 MG PO (08:24)
[2023-11-01] MEDS: BRIVIACT 50 MG PO ×2 (08:24→19:38)
[2023-11-01 10:22] LABS: ALT (SGPT) 53 U/L (0-50); AST (SGOT) 39 U/L (17-59); Albumin 3.3 g/dl (3.5-5.0); Alkaline Phosphatase 110 U/L (38-126); Direct Bilirubin 0.1 mg/dl (0.0-0.4); Lipase 93 U/L (23-300); Total Bilirubin 0.4 mg/dl (0.2-1.3); Total Protein 6.4 g/dl (6.3-8.2)
[2023-11-01] MEDS: TYLENOL 650 MG PO (11:00)
--- NOTE | 2023-11-01 13:48 | W.PN.ID1 ---
Date of Service
Date of Service: November 01, 2023
Today's Communication
amoxicillin
Assessment / Plan
Fever
Possibly drug fever, versus viral illness vs UTI
Improved temp curve past 24h
Seizure disorder with breakthrough seizures
Anxiety
Sturge-Redman syndrome
Frozen shoulder
Intellectual disability
Sleep apnea
Recommendations:
UA and urine culture noted. Pt asymptomatic, although has difficulty expressing pain per family.
Urine sensitivities reviewed.
Begin amoxicillin 500 mg p.o. every 8 hours for a 7-day course.
Monitor temperature curve
����������������������������������������������������������
Chief Complaint
-: Fever and UTI
Subjective / Review of Systems
Seen / examined. Remains lethargic.
Vital Signs / Physical Exam
Vital Signs
Vital Signs
Temp Pulse Resp BP Pulse Ox
98.1 F 99 20 119/75 94
11/01/23 11:23 11/01/23 11:23 11/01/23 11:23 11/01/23 11:23 11/01/23 11:23
Physical Exam
Constitutional: Comfortable, Chronically Ill and Non-toxic
Cardiovascular: S1/S2; Negative S3/S4
Pulmonary: Non Labored
Gastrointestinal: Soft and Non Distended
Genito-Urinary: Negative Perez
Skin: Negative Rash or Jaundice
Psychological: Calm
Objective Data
Lab Data
Lab Results
11/01/23 05:28
11/01/23 05:28
Estimated Creat Clear 80 ml/min 11/01/23 05:28
Total Bilirubin 0.4 mg/dl (0.2-1.3) 11/01/23 05:28
AST 39 U/L (17-59) 11/01/23 05:28
ALT 53 U/L (0-50) H 11/01/23 05:28
Alkaline Phosphatase 110 U/L (38-126) 11/01/23 05:28
Most recent labs reviewed.
Micro Results:
10/30/23 18:28 Urine Culture - Final
Urine Enterococcus faecalis
10/30/23 10:32 Blood Culture - Preliminary
Blood/Venous No Growth in 48 hours- Final report to follow
10/30/23 09:49 Blood Culture - Preliminary
Blood/Venous No Growth in 48 hours- Final report to follow
10/25/23 16:21 Influenza Types A & B (LUCIA) - Final
Nasal Swab Negative for Influenza A & B, NAAT
Negative results must be combined with clinical observations
and patient history.
Nucleic Acid Amplification test (NAAT)performed on the
[employer] platform.
[2023-11-01] MEDS: AMOXIL 500 MG PO ×2 (14:15→21:24)
[2023-11-01] MEDS: LOVENOX 40 MG SC (17:00)
[2023-11-01] MEDS: DILANTIN 200 MG PO (21:24)
[2023-11-01] MEDS: FLOMAX 0.400000000000000022 MG PO (21:25)
[2023-11-01] MEDS: LUMINAL 97.2000000000000028 MG PO (21:25)
--- NOTE | 2023-11-02 | PTCARENOTE ---
Pt with small stage two in gluteal slit- cleansed with saline placed foam. Placed air overlay on bed. Reconsulted WOC.
[2023-11-02] MEDS: TYLENOL 650 MG PO (00:27)
[2023-11-02 03:44] VITALS: BP 116/74
[2023-11-02] MEDS: AMOXIL 500 MG PO ×3 (05:36→21:11)
[2023-11-02 06:00] VITALS: BMI 28.6
[2023-11-02 06:53] LABS: Hematocrit 40.2 % (39.0-52.0); Hemoglobin 13.6 g/dL (13.0-18.0); Mean Corp Hgb Conc. 33.8 g/dL (33.0-37.0); Mean Corpuscular Hgb 32.1 pg (27.0-31.0); Mean Corpuscular Volume 94.8 fL (80.0-94.0); Mean Platelet Volume 9.2 fL (7.4-10.4); Platelet Count 335 10^3/uL (130-400); Red Blood Cell Count 4.24 10^6/uL (4.70-6.10); Red Cell Dist. Width 13.2 % (11.5-14.5); White Blood Cell Count 7.7 10^3/uL (4.8-10.8)
--- NOTE | 2023-11-02 07:15 | W.PN.HOSP.TC ---
Today's Communication/Plan
-
abx as per ID
6 small meals
cont Flomax
CIC 4x daily as per urology
cont sz medications
cont bowel regimen as per GI
Assessment / Plan
Assessment / Plan
Physical Exam
General: No acute distress appears comfortable at this time
Pulm: Clear to auscultation b/l
Cardio: S1/S2 no murmurs rubs gallops
Abd: soft nontender bowel sounds present
Ext: right ankle erythema suspect contact dermatitis
Neuro: Awake alert conversant, exhibits memory issues, sometimes tangential speech, mental status near baseline
73M sz d/o developmental delay sleep apnea kyphosis rt frozen shoulder hx food impaction Sturge-Redman Anxiety here for breakthrough sz.
# Breakthrough seizure
Unclear cause for breakthrough seizures
No evidence of infection at present
initial Elevated Dilantin level trended down with taper
Dilantin being tapered off, 200 mg mg daily for a week, 11/01 decreased phenytoin to 100 mg HS, 11/08 stop phenytoin completely)
Continue phenobarbital
Briviact started, cont
Seizure precautions
Reported ataxia-possibly secondary to Dilantin toxicity, and because of long-term toxicity per discussion with neurology
Neurology eval appreciated
COVID-negative. Chest x-ray no acute abn's
Mental status near baseline. Physically deconditioned
# Persistent intermittent Low grade Fever
#Possible UTI
COVID test repeated negative
no leukocytosis
blood cultures NGTD
urine cx appreciated Enterococcus resistant to Tetracycline only
ID eval appreciated Amoxicillin 500 mg PO Q8H 7 days
Acute Retention
-urinalysis appreciated as above
-started on Flomax, continue
-Urology eval appreciated CIC 4x daily recommended following discussion with family
#Episode Vomiting abd XR 10/28 noted Moderate fecal material throughout the colon.
#continued episodes intermittent vomiting possibly due to constipation vs gastroparesis
diet converted to 6 small meals a day, cont
10/31 Abd US appreciated limited study d/t pt inability to fully cooperate, hepatosplenomegaly, fatty liver disease, Distended Gallbladder, negative Estrada's sign
10/31 Obstruction series appreciated atelectasis, moderate colonic stool, no obstruction
GI eval appreciated
cont bowel regimen as per GI
# History of dysphagia and food impaction summer
Dysphagia diet
Continue PPI
Assistance with all meals
#Right ankle rash contact dermatitis
acquaphor
# Sturge-Redman syndrome
# Developmental delay
# Chronic back pain/scoliosis, add lidocaine patch for the neck
# Neuropathy NOS
# Frozen shoulder on the right
# Anxiety/depression-on sertraline
# History of vitamin D deficiency-continue vitamin D supplement
# Small ulcers on the legs
Large area of abrasion on the right hip area
Possibly from trauma
Wound care consult appreciated
cont wound care
# Sleep apnea-not on CPAP
# CODE STATUS-DNR
# DVT prophylaxis-Lovenox
discussed with patient's brother and [id number]
PT/OT eval appreciated SNF rehab, anticipate need for SNF to be less 30 days
I spent a total of 55 minutes with the patient or on the floor. More than 50% of this time involved counseling and coordination of care.
Anticipated Discharge: 24 - 48 hours
Subjective/Interval History
-
Date of Service: November 02, 2023
No acute distress resting comfortably in bed.
Objective Data
-
Labs:
Laboratory Results
11/02/23
06:38
WBC 7.7
Hgb 13.6
Hct 40.2
Plt Count 335
Sodium Pending
Potassium Pending
Chloride Pending
Carbon Dioxide Pending
BUN Pending
Creatinine Pending
Glucose Pending
Calcium Pending
Vital Signs:
Vital Signs
Temp Pulse Resp BP Pulse Ox
98 F 92 18 116/74 92
11/02/23 03:44 11/02/23 03:44 11/02/23 03:44 11/02/23 03:44 11/02/23 05:30
I&O
11/01/23 11/02/23 11/03/23
06:59 06:59 06:59
Intake Total 360 / 360 240 / 240
Output Total 1400 / 1400 600 / 600
Balance -1040 / -1040 -360 / -360
[2023-11-02 07:17] LABS: Blood Urea Nitrogen 20 mg/dl (9-20); Carbon Dioxide 26 mmol/L (22-30); Chloride 105 mmol/L (98-107); Estimated Creatinine Clearance 90 ml/min; Glucose 106 mg/dl (70-99); Magnesium 2.4 mg/dl (1.6-2.3); Phosphorus 3.9 mg/dl (2.5-4.5); Potassium 4.2 mmol/L (3.5-5.1); Sodium 135 mmol/L (135-145); eGFR > 60.00
[2023-11-02 08:02] VITALS: BP 102/70
[2023-11-02] MEDS: HYDROPHOR 1 APPLIC TOPICAL (10:00)
[2023-11-02] MEDS: LIDOCAINE 4% PATCH 1 PATCH TOPICAL (10:02)
[2023-11-02] MEDS: BRIVIACT 50 MG PO ×2 (10:02→21:11)
[2023-11-02] MEDS: PROTONIX 40 MG PO (10:03)
[2023-11-02] MEDS: ZOLOFT 25 MG PO (10:03)
[2023-11-02] MEDS: SENOKOT-S 1 TABLET PO (10:03)
[2023-11-02] MEDS: VITAMIN B-12 1000 MCG PO (10:03)
[2023-11-02] MEDS: VITAMIN D3 (cholecalciferol) 25 MCG PO (10:03)
[2023-11-02] MEDS: ZOFRAN 4 MG IV (11:53)
--- NOTE | 2023-11-02 12:23 | W.PN.GI.CBS2 ---
Addendum entered and electronically signed by Masoud Calderón MD 11/02/23 14:58:
I saw and examined the patient.
The PA's note was reviewed and I agree with the note.
Comment:
Pt tolerating diet, continues to have dry heaves but no joshua vomiting. Agree with possible CT abd if symptoms do not improve.
Original Note:
Today's Communication / Plan
-
etiology of vomiting/dry heaves unclear related to underlying constipation, underlying urinary issues with retention/enterococcus on cx ,medication related with new changes vs other
still with some dry heaves but eating diet
moderate stool per imaging and last stool / change bowel regiment to miralax in AM and give dose now and senna to HS
US and labs stable less likely GB related -- noted HSM and fatty liver with some limited imaging
abx added for UTI
cont Protonix daily
pt newly on Brivaracetam with listed <5% risk Nausea/vomiting, flomax new but started after symptoms
if symptoms persist proceed with CT A/p with IV and oral contrast
OP follow up for fatty liver noted on US
updated brother at bedside
Assessment / Plan
-
Pt is a 73yo presents with hx Seizure, sturge-cervantes syndrome with intellectual disability, prior food impaction with� admission with seizure. He has been seen by neurology with change in seizure regiment and plan to wean off phenytoin. �
Since admission pt had been noted with fever with ID eval� and also noted with vomiting which is post prandial and new since admission.� Abd film 10/27 with noted moderate stool in colon.
-post prandial nausea/vomiting- new symptoms last few days
-seizure on admission
-fever with ID follow drug fever vs viral illness
-urinary retention/enterococcus in urine cx
-ankle dermatitis/leg ulcer
other medical problems:
-hx food impaction
-sturge cervantes syndrome
-developmental delay
-chronic back pain
-frozen shoulder
-anxiety/depression
-sleep apnea
-fatty liver/ HSM per US with some limitation
PLAN:
etiology of vomiting/dry heaves unclear related to underlying constipation, underlying urinary issues with retention/enterococcus on cx ,medication related with new changes vs other
still with some dry heaves but eating diet
moderate stool per imaging and last stool 3/5 change bowel regiment to miralax in AM and give dose now and senna to HS
US and labs stable less likely GB related -- noted HSM and fatty liver with some limited imaging
abx added for UTI
cont Protonix daily
pt newly on Brivaracetam with listed <5% risk Nausea/vomiting, flomax new but started after symptoms
if symptoms persist proceed with CT A/p with IV and oral contrast
op follow for fatty liver on US
updated brother at bedside
Subjective
Subjective
Date of Service: November 02, 2023
last stool 3/5, still some dry heaves with meds no abdominal pain
Objective
Data Reviewed
Laboratory Data:
Laboratory Results
11/02/23 06:38
11/02/23 06:38
Laboratory Results
Phosphorus 3.9 mg/dl (2.5-4.5) 11/02/23 06:38
Magnesium 2.4 mg/dl (1.6-2.3) H 11/02/23 06:38
Total Bilirubin 0.4 mg/dl (0.2-1.3) 11/01/23 05:28
AST 39 U/L (17-59) 11/01/23 05:28
ALT 53 U/L (0-50) H 11/01/23 05:28
Alkaline Phosphatase 110 U/L (38-126) 11/01/23 05:28
Lipase 93 U/L (23-300) 11/01/23 05:28
Vital Signs and I&O:
Vital Signs
Temp Pulse Resp BP Pulse Ox
98.3 F 111 16 102/70 93
11/02/23 08:02 11/02/23 08:02 11/02/23 08:02 11/02/23 08:02 11/02/23 08:02
I&O
11/01/23 11/02/23 11/03/23
06:59 06:59 06:59
Intake Total 360 / 360 240 / 240
Output Total 1400 / 1400 600 / 600
Balance -1040 / -1040 -360 / -360
Physical Exam
Physical Exam
HEENT: Anicteric and Moist mucous membranes
Cardiology: Normal Sinus Rhythm
Pulmonary: Clear
GI: Soft, Non Distended and Non Tender
Extremities: No Edema
Neuro: Non Focal
--- NOTE | 2023-11-02 12:44 | W.PN.ID1 ---
Date of Service
Date of Service: November 02, 2023
Today's Communication
Continue abx.
Assessment / Plan
Fever
Possibly drug fever, versus viral illness vs UTI
Improved temp curve past 24h
Seizure disorder with breakthrough seizures
Anxiety
Sturge-Redman syndrome
Frozen shoulder
Intellectual disability
Sleep apnea
Recommendations:
UA and urine culture noted. Pt asymptomatic, although has difficulty expressing pain per family.
Urine sensitivities reviewed.
Continue amoxicillin 500 mg p.o. every 8 hours for a 7-day course (through 11/08/23)
Continue to monitor white count and temperature curve.
Monitor nausea and episodes of vomiting.
����������������������������������������������������������
Chief Complaint
-: Fever and UTI (Bacteriuria)
Subjective / Review of Systems
Patient seen and examined. Brother at the bedside. He reports some ongoing nausea and vomiting. Mental alertness has improved.
Review of Systems: No Fever
Vital Signs / Physical Exam
Vital Signs
Vital Signs
Temp Pulse Resp BP Pulse Ox
98.3 F 111 16 102/70 93
11/02/23 08:02 11/02/23 08:02 11/02/23 08:02 11/02/23 08:02 11/02/23 08:02
Physical Exam
Constitutional: Chronically Ill and Non-toxic
Eyes: Sclera Anicteric
Pulmonary: Non Labored
Gastrointestinal: Non Distended
Objective Data
Lab Data
Lab Results
11/02/23 06:38
11/02/23 06:38
Estimated Creat Clear 90 ml/min 11/02/23 06:38
Total Bilirubin 0.4 mg/dl (0.2-1.3) 11/01/23 05:28
AST 39 U/L (17-59) 11/01/23 05:28
ALT 53 U/L (0-50) H 11/01/23 05:28
Alkaline Phosphatase 110 U/L (38-126) 11/01/23 05:28
Most recent labs reviewed.
Micro Results:
10/30/23 10:32 Blood Culture - Preliminary
Blood/Venous No Growth in 72 hours- Final report to follow
10/30/23 09:49 Blood Culture - Preliminary
Blood/Venous No Growth in 72 hours- Final report to follow
10/30/23 18:28 Urine Culture - Final
Urine Enterococcus faecalis
10/25/23 16:21 Influenza Types A & B (LUCIA) - Final
Nasal Swab Negative for Influenza A & B, NAAT
Negative results must be combined with clinical observations
and patient history.
Nucleic Acid Amplification test (NAAT)performed on the
[employer] platform.
--- NOTE | 2023-11-02 13:41 | CONS.URO ---
Consultation
-
Performing Provider: Peffer
Reason for Consultation: Urinary retention
Medical History
History of Present Illness
73M with no prior urologic history or chronic urologic complaints
Hx of intellectual disability, sturge-cervantes syndrome
Currently admitted with seizure and low grade fever
During admission he was found to have positive urine culture
He is asymptomatic, however has a history of poorly communicating pain or other symptoms
He is a poor historian and unable to provide any significant insight into his daily voiding habits or difficulty. From what I can get from him, he does not have a lot of difficulty urinating.
Bladder scans have showed significant urinary retention and he has required straight cath repeatedly for volumes of 400-600cc
Urology consulted for management
Past Medical History
Past Medical History: Other (No urologic history, see H&P for other)
Past Surgical History: Other (Brain tumor resections)
Social History
Tobacco: Non-smoker
Alcohol: None
Drug: None
Living: Group Home
Family History
Family History: Reviewed & Not Pertinent
Allergies/Home Medications
Allergies
Allergy/AdvReac Type Severity Reaction Status Date / Time
No Known Allergies Allergy Verified 10/25/23 15:00
Home Medications
Medication Instructions Recorded Confirmed Type
phenobarbital 97.2 mg tablet 97.2 mg PO HS Seizures ##0 08/19/14 10/25/23 History
cyanocobalamin (vitamin B-12) 1,000 mcg PO DAILY Supplement ##0 05/07/16 10/25/23 History
1,000 mcg tablet,extended release
diphenhydramine HCl 25 mg capsule 25 mg PO Q4HPRN PRN swelling #20 08/29/18 10/25/23 Rx
(Banophen) caps
acetaminophen 325 mg tablet 650 mg PO Q4HPRN PRN pain/fever 04/03/22 10/25/23 History
cholecalciferol (vitamin D3) 25 25 mcg PO DAILY Supplement 10/25/23 10/25/23 History
mcg (1,000 unit) tablet (Vitamin
D3)
phenytoin sodium extended 100 mg 100 mg PO BID@0800,2100 Seizures 10/25/23 10/25/23 History
capsule
phenytoin sodium extended 100 mg 200 mg PO DAILY@1700 Seizures 10/25/23 10/25/23 History
capsule
pantoprazole 40 mg granules 40 mg PO DAILY Gastrointestinal 10/26/23 10/25/23 History
delayed-release for susp in packet Issue
(Protonix)
sertraline 25 mg tablet 25 mg PO DAILY Depression 10/26/23 10/25/23 History
Physical Exam
Vital Signs
Vital Signs
Temp Pulse Resp BP Pulse Ox
98.3 F 111 16 102/70 93
11/02/23 08:02 11/02/23 08:02 11/02/23 08:02 11/02/23 08:02 11/02/23 08:02
Lab / Testing Results
Laboratory Results
11/02/23 06:38
11/02/23 06:38
Physical Exam
General: Well Developed and No Apparent Distress
Respiratory: Clear
GI: Soft and Non Tender
Genito-urinary: Other (normal penis and urethral meatus, normal testicles no mass)
Skin: Warm and Dry
Psych: Calm
Assessment / Plan
-
73M with Sturge Cervantes syndrome, admitted after a seizure
Found to have urinary retention and enterococcus UTI
- Continue antibiotic course
- Given persistent need to straight cath with volumes 400-600cc, recommend either indwelling white or schedule CIC 4x daily during UTI treatment
- Discussed with family (Dr. Portillo) who would like to continue CIC at this time
- Unknown source of urinary retention - may be acute related to seizure or UTI, or have chronic component of BPH or neurogenic bladder
- Okay to continue tamsulosin, continue at discharge
- Outpatient follow up to trend voiding function and possible additional workup
Data Reviewed
-
Lab Data: Labs Reviewed
--- NOTE | 2023-11-02 14:19 | WOUNDNOTE ---
[facility] RN NOTE: Patient visited for suspected stage 2 on sacrum. On assessment dimpled area is closed and appears to be a healed area from past surgery. No erythema on drainage noted. Spoke to brother who confirmed patient had a surgery for pilonidal
cyst in the past. Patient now requires frequent incontinence care and use of barrier ointment. Patient remains on properly inflated static air overlay. All wound dressings intact. Patient with fair appetite and some nausea. Heels intact and
off-loaded with pillows under calves. RN given update. Will follow as needed.
[2023-11-02 15:17] VITALS: BP 122/82
[2023-11-02] MEDS: LOVENOX 40 MG SC (17:23)
[2023-11-02 19:08] VITALS: BP 104/69
[2023-11-02] MEDS: LUMINAL 97.2000000000000028 MG PO (21:11)
[2023-11-02] MEDS: FLOMAX 0.400000000000000022 MG PO (21:11)
[2023-11-02] MEDS: DILANTIN 100 MG PO (21:11)
[2023-11-02] MEDS: SENOKOT 17.1999999999999993 MG PO (21:13)
[2023-11-02 23:58] VITALS: BP 101/69
[2023-11-03 03:55] VITALS: BP 104/73
[2023-11-03] MEDS: AMOXIL 500 MG PO ×3 (05:31→22:06)
[2023-11-03 07:12] LABS: Hematocrit 40.3 % (39.0-52.0); Hemoglobin 13.7 g/dL (13.0-18.0); Mean Corpuscular Hgb 32.3 pg (27.0-31.0); Mean Platelet Volume 9.5 fL (7.4-10.4); Platelet Count 345 10^3/uL (130-400); Red Blood Cell Count 4.24 10^6/uL (4.70-6.10); Red Cell Dist. Width 13.2 % (11.5-14.5); White Blood Cell Count 7.7 10^3/uL (4.8-10.8)
[2023-11-03 07:40] LABS: Blood Urea Nitrogen 20 mg/dl (9-20); Calcium 9.1 mg/dl (8.4-10.2); Carbon Dioxide 28 mmol/L (22-30); Chloride 103 mmol/L (98-107); Estimated Creatinine Clearance 90 ml/min; Glucose 100 mg/dl (70-99); Magnesium 2.4 mg/dl (1.6-2.3); Phosphorus 3.6 mg/dl (2.5-4.5); Potassium 4.3 mmol/L (3.5-5.1); Sodium 139 mmol/L (135-145); eGFR > 60.00
[2023-11-03 07:47] VITALS: BP 103/70
--- NOTE | 2023-11-03 08:00 | W.PN.HOSP.TC ---
Today's Communication/Plan
-
cont antibiotics
intermittent cath 4x daily
PT/OT
cont sz medications
bowel regimen
Assessment / Plan
Assessment / Plan
Physical Exam
General: No acute distress appears comfortable at this time
Pulm: Clear to auscultation b/l
Cardio: S1/S2 no murmurs rubs gallops
Abd: soft nontender bowel sounds present
Ext: right ankle erythema suspect contact dermatitis
Neuro: Awake alert conversant, exhibits memory issues, sometimes tangential speech, mental status near baseline
73M sz d/o developmental delay sleep apnea kyphosis rt frozen shoulder hx food impaction Sturge-Redman Anxiety here for breakthrough sz.
# Breakthrough seizure
Unclear cause for breakthrough seizures
No evidence of infection at present
initial Elevated Dilantin level trended down with taper
Dilantin being tapered off, 200 mg mg daily for a week, 11/01 decreased phenytoin to 100 mg HS, 11/08 stop phenytoin completely)
Continue phenobarbital
Briviact started, cont
Seizure precautions
Reported ataxia-possibly secondary to Dilantin toxicity, and because of long-term toxicity per discussion with neurology
Neurology eval appreciated
COVID-negative. Chest x-ray no acute abn's
Mental status near baseline. Physically deconditioned
# Persistent intermittent Low grade Fever
#Possible UTI
COVID test repeated negative
no leukocytosis
blood cultures NGTD
urine cx appreciated Enterococcus resistant to Tetracycline only
ID eval appreciated Amoxicillin 500 mg PO Q8H 7 days
Acute Retention
-urinalysis appreciated as above
-started on Flomax, continue
-Urology eval appreciated CIC 4x daily recommended following discussion with family
#Episode Vomiting abd XR 10/28 noted Moderate fecal material throughout the colon.
#continued episodes intermittent vomiting possibly due to constipation vs gastroparesis
diet converted to 6 small meals a day, cont
10/31 Abd US appreciated limited study d/t pt inability to fully cooperate, hepatosplenomegaly, fatty liver disease, Distended Gallbladder, negative Estrada's sign
10/31 Obstruction series appreciated atelectasis, moderate colonic stool, no obstruction
GI eval appreciated
cont bowel regimen as per GI
# History of dysphagia and food impaction summer
Dysphagia diet
Continue PPI
Assistance with all meals
#Right ankle rash contact dermatitis
acquaphor
# Sturge-Redman syndrome
# Developmental delay
# Chronic back pain/scoliosis, add lidocaine patch for the neck
# Neuropathy NOS
# Frozen shoulder on the right
# Anxiety/depression-on sertraline
# History of vitamin D deficiency-continue vitamin D supplement
# Small ulcers on the legs
Large area of abrasion on the right hip area
Possibly from trauma
Wound care consult appreciated
cont wound care
# Sleep apnea-not on CPAP
# CODE STATUS-DNR
# DVT prophylaxis-Lovenox
PT/OT eval appreciated SNF rehab, anticipate need for SNF to be less 30 days
I spent a total of 55 minutes with the patient or on the floor. More than 50% of this time involved counseling and coordination of care.
Anticipated Discharge: 24 - 48 hours
Subjective/Interval History
-
Date of Service: November 03, 2023
No acute distress appears comfortable. Afebrile, nausea/retching/dry heaves appears to have resolved
Objective Data
-
Labs:
Laboratory Results
11/03/23
05:58
WBC 7.7
Hgb 13.7
Hct 40.3
Plt Count 345
Sodium 139
Potassium 4.3
Chloride 103
Carbon Dioxide 28
BUN 20
Creatinine 0.6 L
Glucose 100 H
Calcium 9.1
Vital Signs:
Vital Signs
Temp Pulse Resp BP Pulse Ox
98.8 F 94 18 103/70 93
11/03/23 07:47 11/03/23 07:47 11/03/23 07:47 11/03/23 07:47 11/03/23 07:47
I&O
11/02/23 11/03/23 11/04/23
06:59 06:59 07:59
Intake Total 240 / 240 360 / 360
Output Total 600 / 600 800 / 800
Balance -360 / -360 -440 / -440
[2023-11-03] MEDS: VITAMIN D3 (cholecalciferol) 25 MCG PO (09:04)
[2023-11-03] MEDS: BRIVIACT 50 MG PO ×2 (09:04→20:57)
[2023-11-03] MEDS: ZOLOFT 25 MG PO (09:04)
[2023-11-03] MEDS: PROTONIX 40 MG PO (09:04)
[2023-11-03] MEDS: VITAMIN B-12 1000 MCG PO (09:04)
[2023-11-03] MEDS: MIRALAX PO (09:05)
[2023-11-03] MEDS: HYDROPHOR TOPICAL (09:06)
[2023-11-03] MEDS: LIDOCAINE 4% PATCH TOPICAL (09:11)
[2023-11-03 11:00] VITALS: BP 105/66
--- NOTE | 2023-11-03 11:08 | W.PN.ID1 ---
Date of Service
Date of Service: November 03, 2023
Today's Communication
Continue abx.
Assessment / Plan
Fever
Possibly drug fever, versus viral illness vs UTI
Improved temp curve past 48h
Seizure disorder with breakthrough seizures
Anxiety
Sturge-Redman syndrome
Frozen shoulder
Intellectual disability
Sleep apnea
Recommendations:
UA and urine culture noted. Pt asymptomatic, although has difficulty expressing pain per family.
Urine sensitivities reviewed.
Continue amoxicillin 500 mg p.o. every 8 hours for a 7-day course (through 11/08/23)
Continue to monitor white count and temperature curve.
Monitor nausea and episodes of vomiting.
����������������������������������������������������������
Chief Complaint
-: Fever and UTI (Bacteriuria)
Subjective / Review of Systems
Review of Systems: No Fever
Vital Signs / Physical Exam
Vital Signs
Vital Signs
Temp Pulse Resp BP Pulse Ox
98.2 F 96 18 105/66 94
11/03/23 11:00 11/03/23 11:00 11/03/23 11:00 11/03/23 11:00 11/03/23 11:00
Physical Exam
Constitutional: No Acute Distress, Comfortable and Non-toxic
Pulmonary: Non Labored
Gastrointestinal: Soft and Non Distended
Neurological: Awake and Alert
Psychological: Calm
Objective Data
Lab Data
Lab Results
11/03/23 05:58
11/03/23 05:58
Estimated Creat Clear 90 ml/min 11/03/23 05:58
Total Bilirubin 0.4 mg/dl (0.2-1.3) 11/01/23 05:28
AST 39 U/L (17-59) 11/01/23 05:28
ALT 53 U/L (0-50) H 11/01/23 05:28
Alkaline Phosphatase 110 U/L (38-126) 11/01/23 05:28
Most recent labs reviewed.
Micro Results:
10/30/23 10:32 Blood Culture - Preliminary
Blood/Venous No Growth in 4 days- Final report to follow
10/30/23 09:49 Blood Culture - Preliminary
Blood/Venous No Growth in 4 days- Final report to follow
10/30/23 18:28 Urine Culture - Final
Urine Enterococcus faecalis
10/25/23 16:21 Influenza Types A & B (LUCIA) - Final
Nasal Swab Negative for Influenza A & B, NAAT
Negative results must be combined with clinical observations
and patient history.
Nucleic Acid Amplification test (NAAT)performed on the
[employer] platform.
--- NOTE | 2023-11-03 13:10 | W.PN.GI.CBS2 ---
Today's Communication / Plan
-
GI s/o.
Assessment / Plan
-
Pt is a 73yo presents with hx Seizure, sturge-cervantes syndrome with intellectual disability, prior food impaction with� admission with seizure. He has been seen by neurology with change in seizure regiment and plan to wean off phenytoin. �
Since admission pt had been noted with fever with ID eval� and also noted with vomiting which is post prandial and new since admission.� Abd film 10/27 with noted moderate stool in colon.
No further vomiting/dry heaving as per nursing staff o/n. Tolerating diet. Would hold off on CT. GI will s/o at this point, pls call back with questions.
Total Time Spent with Patient (in minutes): 35
Subjective
Subjective
Date of Service: November 03, 2023
No vomiting as per nursing staff
Objective
Data Reviewed
Laboratory Data:
Laboratory Results
11/03/23 05:58
11/03/23 05:58
Laboratory Results
Phosphorus 3.6 mg/dl (2.5-4.5) 11/03/23 05:58
Magnesium 2.4 mg/dl (1.6-2.3) H 11/03/23 05:58
Total Bilirubin 0.4 mg/dl (0.2-1.3) 11/01/23 05:28
AST 39 U/L (17-59) 11/01/23 05:28
ALT 53 U/L (0-50) H 11/01/23 05:28
Alkaline Phosphatase 110 U/L (38-126) 11/01/23 05:28
Lipase 93 U/L (23-300) 11/01/23 05:28
Vital Signs and I&O:
Vital Signs
Temp Pulse Resp BP Pulse Ox
98.2 F 96 18 105/66 94
11/03/23 11:00 11/03/23 11:00 11/03/23 11:00 11/03/23 11:00 11/03/23 11:00
I&O
11/02/23 11/03/23 11/04/23
06:59 06:59 07:59
Intake Total 240 / 240 360 / 360
Output Total 600 / 600 800 / 800 500 / 500
Balance -360 / -360 -440 / -440 -500 / -500
[2023-11-03 15:26] VITALS: BP 114/69
[2023-11-03] MEDS: LOVENOX 40 MG SC (17:37)
[2023-11-03 19:42] VITALS: BP 130/77
[2023-11-03] MEDS: SENOKOT PO (21:09)
[2023-11-03] MEDS: FLOMAX 0.400000000000000022 MG PO (21:09)
[2023-11-03] MEDS: DILANTIN 100 MG PO (21:10)
[2023-11-03] MEDS: LUMINAL 97.2000000000000028 MG PO (21:10)
[2023-11-03 23:24] VITALS: BP 102/70
--- NOTE | 2023-11-04 01:55 | PTCARENOTE ---
Pt with no urine output for night, bladder scanned for 411- straight cathed for 500 mls clear yellow urine.
[2023-11-04 03:44] VITALS: BP 115/71
[2023-11-04 06:00] VITALS: BMI 28.4
[2023-11-04] MEDS: AMOXIL 500 MG PO ×3 (06:18→21:11)
--- NOTE | 2023-11-04 06:43 | PTCARENOTE ---
Pt HR 48 telemetry showing 2nd degree heart block- not currently in, unable to confirm with EKG. House ORCHARDIST aware. Strip mounted in chart.
[2023-11-04 07:15] VITALS: BP 121/74
--- NOTE | 2023-11-04 07:34 | W.PN.HOSP.TC ---
Today's Communication/Plan
-
cont antibiotics
intermittent cath 4x daily
PT/OT
cont sz medications
bowel regimen
cardio eval requested, transient 2nd degree heart block
Assessment / Plan
Assessment / Plan
Physical Exam
General: No acute distress appears comfortable at this time
Pulm: Clear to auscultation b/l
Cardio: S1/S2 no murmurs rubs gallops
Abd: soft nontender bowel sounds present
Ext: right ankle erythema suspect contact dermatitis
Neuro: Awake alert conversant, exhibits memory issues, sometimes tangential speech, mental status near baseline
73M sz d/o developmental delay sleep apnea kyphosis rt frozen shoulder hx food impaction Sturge-Redman Anxiety here for breakthrough sz.
# Breakthrough seizure
Unclear cause for breakthrough seizures
No evidence of infection at present
initial Elevated Dilantin level trended down with taper
Dilantin being tapered off, 200 mg mg daily for a week, 11/01 decreased phenytoin to 100 mg HS, 11/08 stop phenytoin completely)
Continue phenobarbital
Briviact started, cont
Seizure precautions
Reported ataxia-possibly secondary to Dilantin toxicity, and because of long-term toxicity per discussion with neurology
Neurology eval appreciated
COVID-negative. Chest x-ray no acute abn's
Mental status near baseline. Physically deconditioned
# Persistent intermittent Low grade Fever
#Possible UTI
COVID test repeated negative
no leukocytosis
blood cultures NGTD
urine cx appreciated Enterococcus resistant to Tetracycline only
ID eval appreciated Amoxicillin 500 mg PO Q8H 7 days
Acute Retention
-urinalysis appreciated as above
-started on Flomax, continue
-Urology eval appreciated intermittent straight cath 4x daily recommended following discussion with family
#Episode Vomiting abd XR 10/28 noted Moderate fecal material throughout the colon.
#continued episodes intermittent vomiting possibly due to constipation vs gastroparesis
diet converted to 6 small meals a day, cont
10/31 Abd US appreciated limited study d/t pt inability to fully cooperate, hepatosplenomegaly, fatty liver disease, Distended Gallbladder, negative Estrada's sign
10/31 Obstruction series appreciated atelectasis, moderate colonic stool, no obstruction
cont bowel regimen as per GI
nausea/retching since resolved, GI signed off
# History of dysphagia and food impaction summer
Dysphagia diet
Continue PPI
Assistance with all meals
#transient 2nd deg heart block noted overnight on telemonitor 11/02-11/03
noted while patient was sleeping,
since resolved to baseline 1st deg hear block
Cardio eval requested
#Right ankle rash contact dermatitis
acquaphor
# Sturge-Redman syndrome
# Developmental delay
# Chronic back pain/scoliosis, add lidocaine patch for the neck
# Neuropathy NOS
# Frozen shoulder on the right
# Anxiety/depression-on sertraline
# History of vitamin D deficiency-continue vitamin D supplement
# Small ulcers on the legs
Large area of abrasion on the right hip area
Possibly from trauma
Wound care consult appreciated
cont wound care
# Sleep apnea-not on CPAP
# CODE STATUS-DNR
# DVT prophylaxis-Lovenox
PT/OT eval appreciated SNF rehab, anticipate need for SNF to be less 30 days
I spent a total of 55 minutes with the patient or on the floor. More than 50% of this time involved counseling and coordination of care.
Anticipated Discharge: 24 - 48 hours
Subjective/Interval History
-
Date of Service: November 04, 2023
no acute distress, comfortable.
Objective Data
-
Vital Signs:
Vital Signs
Temp Pulse Resp BP Pulse Ox
98.2 F 95 20 115/71 92
11/04/23 03:44 11/04/23 03:44 11/04/23 03:44 11/04/23 03:44 11/04/23 03:44
I&O
11/03/23 11/04/23 11/05/23
05:59 06:59 06:59
Intake Total
Output Total
Balance
[2023-11-04] MEDS: BRIVIACT 50 MG PO ×2 (08:24→20:13)
[2023-11-04] MEDS: VITAMIN B-12 1000 MCG PO (08:24)
[2023-11-04] MEDS: PROTONIX 40 MG PO (08:24)
[2023-11-04] MEDS: VITAMIN D3 (cholecalciferol) 25 MCG PO (08:24)
[2023-11-04] MEDS: ZOLOFT 25 MG PO (08:24)
[2023-11-04] MEDS: LIDOCAINE 4% PATCH TOPICAL (08:25)
[2023-11-04] MEDS: MIRALAX PO (08:25)
[2023-11-04] MEDS: HYDROPHOR 1 APPLIC TOPICAL (08:26)
[2023-11-04 11:10] VITALS: BP 115/76
[2023-11-04 15:25] VITALS: BP 132/84
[2023-11-04] MEDS: LOVENOX 40 MG SC (17:17)
[2023-11-04 19:52] VITALS: BP 108/69
[2023-11-04] MEDS: SENOKOT PO (20:30)
[2023-11-04] MEDS: FLOMAX 0.400000000000000022 MG PO (21:11)
[2023-11-04] MEDS: LUMINAL 97.2000000000000028 MG PO (21:11)
[2023-11-04] MEDS: DILANTIN 100 MG PO (21:11)
[2023-11-04 23:06] VITALS: BP 140/85
--- NOTE | 2023-11-05 00:30 | PTCARENOTE ---
Pts HR dropped, noted to be in 2nd degree heart block, attempted EKG unable to capture. Strip mounted on chart.
[2023-11-05 03:16] VITALS: BP 136/84
[2023-11-05 05:56] VITALS: BMI 29.5
[2023-11-05] MEDS: AMOXIL 500 MG PO ×3 (05:57→21:16)
[2023-11-05 07:30] VITALS: BP 113/85
[2023-11-05 07:30] LABS: Blood Urea Nitrogen 19 mg/dl (9-20); Calcium 9.1 mg/dl (8.4-10.2); Carbon Dioxide 26 mmol/L (22-30); Chloride 107 mmol/L (98-107); Estimated Creatinine Clearance 91 ml/min; Glucose 105 mg/dl (70-99); Magnesium 2.1 mg/dl (1.6-2.3); Potassium 4.2 mmol/L (3.5-5.1); Sodium 138 mmol/L (135-145); eGFR > 60.00
[2023-11-05 07:40] LABS: Hematocrit 40.5 % (39.0-52.0); Hemoglobin 13.9 g/dL (13.0-18.0); Mean Corp Hgb Conc. 34.3 g/dL (33.0-37.0); Mean Corpuscular Hgb 32.5 pg (27.0-31.0); Mean Corpuscular Volume 94.6 fL (80.0-94.0); Mean Platelet Volume 9.3 fL (7.4-10.4); Platelet Count 398 10^3/uL (130-400); Red Blood Cell Count 4.28 10^6/uL (4.70-6.10); Red Cell Dist. Width 13.3 % (11.5-14.5); White Blood Cell Count 9.4 10^3/uL (4.8-10.8)
[2023-11-05] MEDS: HYDROPHOR 1 APPLIC TOPICAL (08:55)
[2023-11-05] MEDS: BRIVIACT 50 MG PO ×2 (08:55→21:16)
[2023-11-05] MEDS: MIRALAX PO (08:55)
[2023-11-05] MEDS: VITAMIN D3 (cholecalciferol) 25 MCG PO (08:56)
[2023-11-05] MEDS: VITAMIN B-12 1000 MCG PO (08:56)
[2023-11-05] MEDS: ZOLOFT 25 MG PO (08:56)
[2023-11-05] MEDS: PROTONIX 40 MG PO (08:56)
[2023-11-05] MEDS: LIDOCAINE 4% PATCH 1 PATCH TOPICAL (08:57)
--- NOTE | 2023-11-05 09:52 | CON.CAR ---
Addendum entered and electronically signed by Jaylon Swenson MD 11/05/23 13:13:
I saw and examined the patient.
The BUSINESS ANALYTICS SPECIALIST's note was reviewed and I agree with the note.
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 He was discharged, but then came back in because he was
having weakness, slow to respond, and difficulty ambulating. He was admitted and seen by neurology who is adjusting seizure medicines. We are consulted since 2nd degree HB noted on monitor overnight. Baseline EKG shows significant 1st degree AVB.
Patient is cooperative and pleasant, but not a good historian. Overall, it does not appear that he has any syncope associated with this and it has only been noted while sleeping. Also, discussed with EP and agrees with Hayden noted on
telemetry.
- avoid AVN agents as able and avoid QT prolonging medications
- TTE pending
We will sign off please call back with questions/concerns.
Original Note:
Consultation
Consultation Request
Date/Time Consultation Requested: 11/04/23 1446
Date/Time Consultation Performed: 11/05/23 0953
Requesting Provider: Dr. Loyd
Performing Provider: Paige FORRESTER for Dr. Swenson
Reason for Consultation: 2nd degree heart block
Medical History
-
Chief Complaint: seizure, change MS
History of Present Illness:
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 He was discharged, but then came back in because he was having
weakness, slow to respond, and difficulty ambulating. He was admitted and seen by neurology who is adjusting seizure medicines. Additionally, he is being treated for a UTI. Finally, he was seen by GI for vomiting and constipation, which has now
resolved. We are consulted since 2nd degree HB noted on monitor overnight. Baseline EKG shows significant 1st degree AVB. Patient is cooperative and pleasant, but not a good historian.
Past Medical History
Past Medical History: Other (as above)
Past Surgical History: Brain
Social History
Living: Assisted Living
Family History
Family History: Reviewed & Not Pertinent (reviewed chart)
Allergies / Home Medications
Allergy/AdvReac Type Severity Reaction Status Date / Time
No Known Allergies Allergy Verified 10/25/23 15:00
Medication Instructions Recorded Confirmed Type
phenobarbital 97.2 mg tablet 97.2 mg PO HS Seizures ##0 08/19/10/25/23 History
cyanocobalamin (vitamin B-12) 1,000 mcg PO DAILY Supplement ##0 05/07/16 10/25/23 History
1,000 mcg tablet,extended release
diphenhydramine HCl 25 mg capsule 25 mg PO Q4HPRN PRN swelling #20 08/29/18 10/25/23 Rx
(Banophen) caps
acetaminophen 325 mg tablet 650 mg PO Q4HPRN PRN pain/fever 04/03/22 10/25/23 History
cholecalciferol (vitamin D3) 25 25 mcg PO DAILY Supplement 10/25/23 10/25/23 History
mcg (1,000 unit) tablet (Vitamin
D3)
phenytoin sodium extended 100 mg 100 mg PO BID@0800,2100 Seizures 10/25/23 10/25/23 History
capsule
phenytoin sodium extended 100 mg 200 mg PO DAILY@1700 Seizures 10/25/23 10/25/23 History
capsule
pantoprazole 40 mg granules 40 mg PO DAILY Gastrointestinal 10/26/23 10/25/23 History
delayed-release for susp in packet Issue
(Protonix)
sertraline 25 mg tablet 25 mg PO DAILY Depression 10/26/23 10/25/23 History
Review of Systems
-
History Source: Patient (not reliable historian) and Other (chart)
Constitutional: Other (weakness. all details as above)
Neurological: Other (seizures, details as above)
Physical Exam
Vital Signs
Temp Pulse Resp BP Pulse Ox
98.3 F 92 20 113/85 93
11/05/23 07:30 11/05/23 07:30 11/05/23 07:30 11/05/23 07:30 11/05/23 07:30
Lab Results
11/05/23 06:50
11/05/23 06:50
Physical Exam
General: Well Developed, Well Nourished and No Apparent Distress
HEENT: Normocephalic and Anicteric
Respiratory: Clear and Non Labored Respirations
Cardiac: Regular Rhythm
Breast: Deferred by me
GI: Soft, Non Distended and Normal Bowel Sounds
Rectal: Deferred by Provider
Musculoskeletal: No Edema
Skin: Warm and Dry
Neuro: Awake, Alert, Oriented and Other (no reliable historian. Friendly and conversive, but not focusing on questions.)
Psych: Calm
Impression / Plan
-
Seizure:
-neuro adjusting meds
UTI:
-on ABX
Arrhythmia:
-EKG's and tele reviewed. I see 1st degree AVB which has been noted in the past. Overnight, he has periods of 2nd degree type 1 HB. QTC on long end- 482 ms to my manual review. Follow tele and EKG's. Avoid AV chu agents and QTC prolonging agents.
-check echo
-reviewed strips, EKG with EP- there is no indication for pacemaker at this time
Data Reviewed
-
EKG: Tracing Personally Visualized and interpreted (SR with 1st degree AVB with prolonged QTC (1st degree 320 ms and QTC 482 ms to my manual review))
Radiology: Report Reviewed by me (CXR 10/25/23: No acute disease of the chest. Scoliosis. Stable. Mild cardiomegaly. Stable)
Labs: Labs Reviewed by me
[2023-11-05 11:15] VITALS: BP 115/82
--- NOTE | 2023-11-05 12:46 | W.PN.HOSP.TC ---
Today's Communication/Plan
-
Echo today
Possible discharge tomorrow if stable
Assessment / Plan
Assessment / Plan
Awake and alert. Conversant. Answers most of the questions appropriately
Denies any complaints of pain
Cardiovascular system S1-S2 appreciated
Chest clear to auscultation
Abdomen soft and nontender
Right hip skin break/laceration--stable mostly healed
Small ulcers on the foot-stable
73M sz d/o developmental delay sleep apnea kyphosis rt frozen shoulder hx food impaction Sturge-Redman Anxiety here for breakthrough sz.
# Breakthrough seizure
Unclear cause for breakthrough seizures
initial Elevated Dilantin level trended down with taper
Dilantin being tapered off, 200 mg mg daily for a week, 11/01 decreased phenytoin to 100 mg HS, 11/08 stop phenytoin completely)
Continue phenobarbital
Briviact started, cont
Seizure precautions
Reported ataxia-possibly secondary to Dilantin toxicity, and because of long-term toxicity per discussion with neurology
Neurology eval appreciated
COVID-negative. Chest x-ray no acute abn's
Mental status near baseline. Physically deconditioned
# Persistent intermittent Low grade Fever
#Possible UTI
COVID test repeated negative
no leukocytosis
blood cultures NGTD
urine cx appreciated Enterococcus resistant to Tetracycline only
ID eval appreciated Amoxicillin 500 mg PO Q8H 7 days
#Acute Retention
-urinalysis appreciated as above
-started on Flomax, continue
-Urology eval appreciated intermittent straight cath 4x daily recommended following discussion with family
#Episode Vomiting abd XR 10/28 noted Moderate fecal material throughout the colon.
Continued episodes intermittent vomiting possibly due to constipation vs gastroparesis
diet converted to 6 small meals a day, cont
10/31 Abd US appreciated limited study d/t pt inability to fully cooperate, hepatosplenomegaly, fatty liver disease, Distended Gallbladder, negative Estrada's sign
10/31 Obstruction series appreciated atelectasis, moderate colonic stool, no obstruction
cont bowel regimen as per GI
nausea/retching since resolved, GI signed off
# History of dysphagia and food impaction summer
Dysphagia diet
Continue PPI
Assistance with all meals
#Transient 2nd deg heart block noted overnight on telemonitor 11/02-11/03
noted while patient was sleeping,
since resolved to baseline 1st deg hear block
Cardio following
ECHO today
#Right ankle rash contact dermatitis
Aquaphor
# Sturge-Redman syndrome
# Developmental delay
# Chronic back pain/scoliosis, add lidocaine patch for the neck
# Neuropathy NOS
# Frozen shoulder on the right
# Anxiety/depression-on sertraline
# History of vitamin D deficiency-continue vitamin D supplement
# Small ulcers on the legs
Large area of abrasion on the right hip area
Possibly from trauma
Wound care consult appreciated
cont wound care
# Sleep apnea-not on CPAP
# CODE STATUS-DNR
# DVT prophylaxis-Lovenox
PT/OT eval appreciated SNF rehab, anticipate need for SNF to be less 30 days
D/W RN
D/W Brother at bed side
Anticipated Discharge: Within 24 hours
Subjective/Interval History
-
Date of Service: November 05, 2023
Objective Data
-
Labs:
Laboratory Results
11/05/23
06:50
WBC 9.4
Hgb 13.9
Hct 40.5
Plt Count 398
Sodium 138
Potassium 4.2
Chloride 107
Carbon Dioxide 26
BUN 19
Creatinine 0.5 L
Glucose 105 H
Calcium 9.1
Vital Signs:
Vital Signs
Temp Pulse Resp BP Pulse Ox
98.3 F 103 20 115/82 93
11/05/23 11:15 11/05/23 11:15 11/05/23 11:15 11/05/23 11:15 11/05/23 11:21
I&O
11/04/23 11/05/23 11/06/23
06:59 06:59 06:59
Intake Total 480 / 480
Output Total 875 / 875
Balance -395 / -395
[2023-11-05 16:04] VITALS: BP 118/74
--- NOTE | 2023-11-05 16:35 | CM ---
Brother visiting with patient .
As per brother Echo ordered.
Pt requested [facility] at dc
Brother in agreement with [facility] at dc.
PLAN to [facility] when medical ready
[2023-11-05] MEDS: LOVENOX 40 MG SC (17:34)
[2023-11-05 19:55] VITALS: BP 110/74
[2023-11-05] MEDS: DILANTIN 100 MG PO (21:16)
[2023-11-05] MEDS: FLOMAX 0.400000000000000022 MG PO (21:16)
[2023-11-05] MEDS: LUMINAL 97.2000000000000028 MG PO (21:16)
[2023-11-05] MEDS: SENOKOT PO (21:17)
[2023-11-05 23:24] VITALS: BP 98/75
[2023-11-06 03:50] VITALS: BP 129/79
[2023-11-06] MEDS: BENADRYL 25 MG PO (04:55)
[2023-11-06] MEDS: AMOXIL 500 MG PO ×2 (05:19→14:59)
[2023-11-06 06:00] VITALS: BMI 28.4
[2023-11-06 07:00] VITALS: BP 98/67
[2023-11-06] MEDS: LIDOCAINE 4% PATCH 1 PATCH TOPICAL (08:45)
[2023-11-06] MEDS: HYDROPHOR 1 APPLIC TOPICAL (08:46)
[2023-11-06] MEDS: ZOLOFT 25 MG PO (08:47)
[2023-11-06] MEDS: VITAMIN B-12 1000 MCG PO (08:47)
[2023-11-06] MEDS: MIRALAX 17 GRAMS PO (08:47)
[2023-11-06] MEDS: VITAMIN D3 (cholecalciferol) 25 MCG PO (08:47)
[2023-11-06] MEDS: PROTONIX 40 MG PO (08:47)
[2023-11-06] MEDS: BRIVIACT 50 MG PO (08:47)
[2023-11-06] MEDS: FLUSH (NSS) 1 FLUSH IV (08:48)
--- NOTE | 2023-11-06 10:05 | WOUNDNOTE ---
L ANKLE AND FOOT
--- NOTE | 2023-11-06 10:06 | WOUNDNOTE ---
R LATERAL ANKLE 2ND VIEW
--- NOTE | 2023-11-06 10:07 | WOUNDNOTE ---
KIRILL RN NOTE: Followed up today with assist from nurse Potts. Turned patient onto L side, sacrum and buttocks are intact. R hip and lateral R ankle wounds now healed, no drainage. Changed silicone foams to protect. Toes with dry intact scabs, skin
prep applied. Pillow in use under calves, waiting for bed at [facility]. Will update wound care and follow as needed.
[2023-11-06 11:00] VITALS: BP 103/64
--- NOTE | 2023-11-06 14:05 | CM ---
Addendum entered by Lanette Fernando RN 11/06/23 15:11:
Paige [place] and brother aware of ambulance at 7:00 pm tonight .
Original Note:
Brother visiting with patient.IMM reviewed with brother. He said he agrees with dc.
Spoke with Paige from [facility] She said that staff could straight cath patient every 8 hours or as needed.
Medical nec form completed for ambulance.
[facility]
report [phone]
fax [phone]
PLAN to [facility]
[2023-11-06 15:00] VITALS: BP 105/82
--- NOTE | 2023-11-06 15:58 | W.PN.HOSP.TC ---
Today's Communication/Plan
-
Discharge
Assessment / Plan
Assessment / Plan
Awake and alert. Conversant. Answers most of the questions appropriately
Denies any complaints of pain
Cardiovascular system S1-S2 appreciated
Chest clear to auscultation
Abdomen soft and nontender
Right hip skin break/laceration--stable mostly healed
Small ulcers on the foot-stable
73M sz d/o developmental delay sleep apnea kyphosis rt frozen shoulder hx food impaction Sturge-Redman Anxiety here for breakthrough sz.
# Breakthrough seizure
Unclear cause for breakthrough seizures
initial Elevated Dilantin level trended down with taper
Dilantin being tapered off, 200 mg mg daily for a week, 11/01 decreased phenytoin to 100 mg HS, 11/08 stop phenytoin completely
Continue phenobarbital
Briviact started, cont
Seizure precautions
Reported ataxia-possibly secondary to Dilantin toxicity, and because of long-term toxicity per discussion with neurology
Neurology eval appreciated
COVID-negative.
Mental status baseline. Physically deconditioned
# Persistent intermittent Low grade Fever
#Possible UTI
COVID test repeated negative
no leukocytosis
blood cultures NGTD
urine cx appreciated Enterococcus resistant to Tetracycline only
ID eval appreciated Amoxicillin 500 mg PO Q8H 7 days
#Acute Retention
-urinalysis appreciated as above
-started on Flomax, continue
-Urology eval appreciated intermittent straight cath 4x daily recommended following discussion with family
#Episode Vomiting abd XR 10/28 noted Moderate fecal material throughout the colon.
Continued episodes intermittent vomiting possibly due to constipation vs gastroparesis
diet converted to 6 small meals a day, cont
10/31 Abd US appreciated limited study d/t pt inability to fully cooperate, hepatosplenomegaly, fatty liver disease, Distended Gallbladder, negative Estrada's sign
10/31 Obstruction series appreciated atelectasis, moderate colonic stool, no obstruction
cont bowel regimen as per GI
nausea/retching since resolved, GI signed off
# History of dysphagia and food impaction summer
Dysphagia diet
Continue PPI
Assistance with all meals
#Transient 2nd deg heart block noted overnight on telemonitor 11/02-11/03
noted while patient was sleeping,
since resolved to baseline 1st deg hear block
Cardio following
ECHO today
#Right ankle rash contact dermatitis
Aquaphor
# Sturge-Redman syndrome
# Developmental delay
# Chronic back pain/scoliosis, add lidocaine patch for the neck
# Neuropathy NOS
# Frozen shoulder on the right
# Anxiety/depression-on sertraline
# History of vitamin D deficiency-continue vitamin D supplement
# Small ulcers on the legs
Large area of abrasion on the right hip area- healing
Possibly from trauma
Wound care consult appreciated
cont wound care
# Sleep apnea-not on CPAP
# CODE STATUS-DNR
# DVT prophylaxis-Lovenox
PT/OT eval appreciated SNF rehab, anticipate need for SNF to be less 30 days
D/W RN
D/W Brother at bed side
D/W Case management.
Discharge time 35 min
Anticipated Discharge: Today
Subjective/Interval History
-
Date of Service: November 06, 2023
Objective Data
-
Vital Signs:
Vital Signs
Temp Pulse Resp BP Pulse Ox
97.9 F 92 18 103/64 95
11/06/23 11:00 11/06/23 11:00 11/06/23 11:00 11/06/23 11:00 11/06/23 11:00
I&O
11/05/23 11/06/23 11/07/23
06:59 06:59 06:59
Intake Total 480 / 480 600 / 600
Output Total 875 / 875
Balance -395 / -395 600 / 600
--- NOTE | 2023-11-06 16:03 | W.DS.TRANS ---
Addendum entered and electronically signed by Pallavi Devlin MD 11/06/23 16:53:
Dictation- [id number]
Original Note:
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
-
Discharge Instructions:
Discharge Diagnosis/Procedures Seizures, Dilantin toxicity, UTI, [place]kebach
heart block, acute urinary retention,
constipation, dysphagia Sturge-Redman syndrome,
developmental delay, frozen shoulder on right,
anxiety and depression, sleep apnea-CPAP
intolerant, DNR status
Additional Diets IDDSI level 5 with thin liquids-6 small meals.
Instructions:
Stand-Alone Forms:
Changes to Home Medications: Yes
Discharge Medications:
DC Medications w/original date entered in [employer]
phenobarbital 97.2 mg tablet 97.2 mg PO HS Seizures ##0 08/19/14
cyanocobalamin (vitamin B-12) 1,000 mcg tablet,extended release 1,000 mcg PO DAILY Supplement ##0 05/07/16
diphenhydramine HCl 25 mg capsule (Banophen) 25 mg PO Q4HPRN PRN swelling #20 caps 08/29/18
acetaminophen 325 mg tablet 650 mg PO Q4HPRN PRN pain/fever 04/03/22
cholecalciferol (vitamin D3) 25 mcg (1,000 unit) tablet (Vitamin D3) 25 mcg PO DAILY Supplement 10/25/23
pantoprazole 40 mg granules delayed-release for susp in packet (Protonix) 40 mg PO DAILY Gastrointestinal Issue 10/26/23
sertraline 25 mg tablet 25 mg PO DAILY Depression 10/26/23
amoxicillin 500 mg capsule 500 mg PO Q8H uti #0 caps 11/06/23
brivaracetam 50 mg tablet (Briviact) 50 mg PO BID Seizures #0 tabs 11/06/23
lidocaine 4 % topical patch 1 patch topical DAILY Pain #0 ea 11/06/23
phenytoin sodium extended 100 mg capsule 100 mg PO HS Seizures #0 caps 11/06/23
polyethylene glycol 3350 17 gram oral powder packet (HealthyLax) 17 g PO DAILY Constipation #0 ea 11/06/23
sennosides 8.6 mg tablet (Senna Laxative) 17.2 mg PO HS Constipation #0 tabs 11/06/23
tamsulosin 0.4 mg capsule 0.4 mg PO HS Urinary issue #0 caps 11/06/23
white petrolatum 42 % topical ointment (Hydrophor) 1 applic topical DAILY Skin issues #0 grams 11/06/23
Home Medication Changes
Dilantin changed and being tapered off
New
amoxicillin 500 mg capsule 500 mg PO Q8H uti #0 caps 11/06/23
brivaracetam 50 mg tablet (Briviact) 50 mg PO BID Seizures #0 tabs 11/06/23
lidocaine 4 % topical patch 1 patch topical DAILY Pain #0 ea 11/06/23
polyethylene glycol 3350 17 gram oral powder packet (HealthyLax) 17 g PO DAILY Constipation #0 ea 11/06/23
sennosides 8.6 mg tablet (Senna Laxative) 17.2 mg PO HS Constipation #0 tabs 11/06/23
tamsulosin 0.4 mg capsule 0.4 mg PO HS Urinary issue #0 caps 11/06/23
white petrolatum 42 % topical ointment (Hydrophor) 1 applic topical DAILY Skin issues #0 grams 11/06/23
Pending Results: No
--- NOTE | 2023-11-06 16:21 | PTCARENOTE ---
Pt awake and alert; oriented to self/birthdate/'hospital'; conversation rambling at times. HOFFMAN; legs weak. VSS. Telemetry:currently NSR with first degree AVB. On room air- pulse ox 92%, no c/o SOB. Abd large, soft, alex PO. Incont urine; occ
voids in urinal with assistance. Rt lateral ankle and Rt hips foam dsgs D/I. Pt awaiting transfer to SNF later this shift. Will continue to monitor.
[2023-11-06] MEDS: PREVNAR 20 0.5 ML IM (16:23)
--- NOTE | 2023-11-06 16:34 | W.PN.ID1 ---
Date of Service
Date of Service: November 06, 2023
Today's Communication
Continue antibiotics.
Assessment / Plan
Fever
Possibly drug fever, versus viral illness vs UTI
Improved temp curve past 48h
Seizure disorder with breakthrough seizures
Anxiety
Sturge-Redman syndrome
Frozen shoulder
Intellectual disability
Sleep apnea
Recommendations:
UA and urine culture noted. Pt asymptomatic, although has difficulty expressing pain per family.
Urine sensitivities reviewed.
--> Continue amoxicillin 500 mg p.o. every 8 hours for a 7-day course (through 11/08/23)
����������������������������������������������������������
Chief Complaint
-: Fever and UTI (Bacteriuria)
Subjective / Review of Systems
Review of Systems: No Fever and No Chills
Vital Signs / Physical Exam
Vital Signs
Vital Signs
Temp Pulse Resp BP Pulse Ox
98.1 F 100 18 105/82 92
11/06/23 15:00 11/06/23 15:00 11/06/23 15:00 11/06/23 15:00 11/06/23 16:20
Physical Exam
Physical Exam:
Constitutional: No Acute Distress, Comfortable and Non-toxic
Pulmonary: Non Labored
Gastrointestinal: Soft and Non Distended
Neurological: Awake and Alert
Psychological: Calm
Objective Data
Lab Data
Lab Results
11/05/23 06:50
11/05/23 06:50
Estimated Creat Clear 91 ml/min 11/05/23 06:50
Total Bilirubin 0.4 mg/dl (0.2-1.3) 11/01/23 05:28
AST 39 U/L (17-59) 11/01/23 05:28
ALT 53 U/L (0-50) H 11/01/23 05:28
Alkaline Phosphatase 110 U/L (38-126) 11/01/23 05:28
Most recent labs reviewed.
Micro Results:
10/30/23 10:32 Blood Culture - Final
Blood/Venous No Growth - Final Report
10/30/23 09:49 Blood Culture - Final
Blood/Venous No Growth - Final Report
10/30/23 18:28 Urine Culture - Final
Urine Enterococcus faecalis
10/25/23 16:21 Influenza Types A & B (LUCIA) - Final
Nasal Swab Negative for Influenza A & B, NAAT
Negative results must be combined with clinical observations
and patient history.
Nucleic Acid Amplification test (NAAT)performed on the
[employer] platform.
[2023-11-06] MEDS: LOVENOX 40 MG SC (17:59)
== END 2023-11-06 19:21 | DRG 101 ==
LOC: 4 EAST ACU 13:24
PROVIDERS: Internal Medicine; Nurse Practitioner; ADMITTING PHYSICIAN Hospitalist; CONSULT PHYSICIAN Internal Medicine Cardiovascular Disease; CONSULT PHYSICIAN Internal Medicine Gastroenterology; CONSULT PHYSICIAN Internal Medicine Infectious Disease; CONSULT PHYSICIAN Psychiatry & Neurology Neurology; CONSULT PHYSICIAN Urology; EMERGENCY PHYSICIAN Student in an Organized Health Care Education/Training Program; FAMILY PHYSICIAN Nurse Practitioner Adult Health
DX: G40.909 Epilepsy, unspecified, not intractable, without status epilepticus (principal); N39.0 Urinary tract infection, site not specified; Q85.89 Other phakomatoses, not elsewhere classified; T42.0X5A Adverse effect of hydantoin derivatives, initial encounter; I44.1 Atrioventricular block, second degree; K59.00 Constipation, unspecified; R13.10 Dysphagia, unspecified; R62.50 Unspecified lack of expected normal physiological development in childhood; M75.01 Adhesive capsulitis of right shoulder; F32.A Depression, unspecified; F41.9 Anxiety disorder, unspecified; G47.30 Sleep apnea, unspecified; F79 Unspecified intellectual disabilities; Z66 Do not resuscitate
CPT/HCPCS: 51701; 70450; 70551; 71046; 72125; 73060; 74019; 74022; 76700; 80048; 80053; 80184; 80185; 81003; 81015; 82248; 82607; 82962; 83690; 83735; 84100; 84443; 85025; 85027; 86803; 87040; 87077; 87086; 87186; 87502; 87811; 90677; 93005; 93306; 97163; 97167; 97530; 97535; 99285; G0009

== ENCOUNTER 2023-11-07 12:21 | Emergency (ER) | payer MEDICARE, SELFPAY ==
[2023-11-07 12:25] VITALS: BP 121/91
[2023-11-07 12:43] VITALS: BP 112/81
[2023-11-07 13:00] VITALS: BP 122/75
[2023-11-07 13:32] LABS: % Basophils 0.7 % (0-2); % Immature Granulocytes 0.8 % (0-0.5); % Lymphocytes 14.9 % (20.5-51.1); % Monocytes 11.2 % (1.7-9.3); % Neutrophils 70.4 % (42.2-75.2); Absolute Basophils 0.1 10^3/uL (0-0.2); Absolute Eosinophils 0.2 10^3/uL (0-0.7); Absolute Immature Granulocytes 0.1 10^3/uL (0-0.05); Absolute Lymphocytes 1.8 10^3/uL (1.2-3.4); Absolute Monocytes 1.3 10^3/uL (0.1-0.6); Absolute Neutrophils 8.3 10^3/uL (1.4-6.5); Hematocrit 44.7 % (39.0-52.0); Hemoglobin 15.2 g/dL (13.0-18.0); Mean Corpuscular Hgb 32.1 pg (27.0-31.0); Mean Corpuscular Volume 94.5 fL (80.0-94.0); Mean Platelet Volume 9.4 fL (7.4-10.4); Nucleated Red Blood Cells % 0 % (-); Platelet Count 491 10^3/uL (130-400); Red Blood Cell Count 4.73 10^6/uL (4.70-6.10); Red Cell Dist. Width 13.8 % (11.5-14.5); White Blood Cell Count 11.8 10^3/uL (4.8-10.8)
[2023-11-07 14:03] LABS: Blood Urea Nitrogen 24 mg/dl (9-20); Calcium 9.8 mg/dl (8.4-10.2); Carbon Dioxide 26 mmol/L (22-30); Chloride 101 mmol/L (98-107); Glucose 112 mg/dl (70-99); Sodium 138 mmol/L (135-145); eGFR > 60.00
[2023-11-07 14:11] VITALS: BP 121/95
[2023-11-07] MEDS: BRIVIACT 100 MG IV (15:27)
[2023-11-07 15:28] VITALS: BP 126/91
[2023-11-07 17:00] VITALS: BP 117/86
--- NOTE | 2023-11-07 17:19 | ED.GENMED ---
History of Present Illness
General
Chief Complaint: Seizure
Source: patient and family
Exam Limitations: developmental stage
Time Seen by Provider: 11/07/23 12:47
Nursing documentation reviewed up to this point in time: agreed with
Travel History
Have you had any contact with someone who has COVID-19?: No
Do you have any symptoms of coronavirus? Fever > 100 degrees, chills, cough, shortness of breath, sore throat, loss of taste or smell, muscle aches, or headache?: Yes
Symptoms:: cough
History of Present Illness
History of Present Illness:
73-year-old male with a past medical history of developmental delay, seizure disorder who presents to the emergency department with his brother who is his primary decision maker; he presents for evaluation after seizure. He was just admitted to
[facility] 10/25/2023 until 11/06/2023 for seizures; during this admission he was started on brivaracetam and plan was to wean down his normal Dilantin and increase the brivaracetam. He was ultimately discharged to rehab at [facility]. According to
brother there was some difficulty obtaining his seizure medication at [facility] and so he missed his dose of seizure medication last night and this morning. This morning he had a witnessed seizure by brother which lasted about 5 minutes. He was
postictal and EMS was called to bring to the hospital. On arrival to the hospital brother says that patient back to baseline mental status. Patient says that he feels well and has no complaints.
Past History
Past History
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 Sleep apnea)
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
Social History
Tobacco: Non-smoker
Alcohol: None
Drug: None
Personal: Single
Living: assisted living
Employment: Disabled
Family History
Family History: Other (breast cancer)
Review of Systems
Review of Systems
All Other Systems: ROS reviewed and negative except as documented in HPI and ROS
Constitutional: Denies fever
Respiratory: Denies trouble breathing
Cardiac: Denies chest pain
ABD/GI: Denies abdominal pain, nausea or vomiting
: Denies flank pain
Musculoskeletal: Denies neck pain or back pain
Neurological: Reports other (Seizure); Denies headache, weakness or numbness
Phy Exam
Physical Exam
Physical Exam:
General: Awake, alert; no acute distress
Head: Normocephalic, atraumatic
Eyes: Conjunctiva normal, EOMI, pupils equal round reactive to light bilateral
Throat: Airway intact, handling secretions
Neck: Trachea midline, supple without meningismus
Lungs: Clear to auscultation bilaterally, no wheezing, rales, rhonchi
Heart: Regular rate and rhythm, no murmurs, gallops, or rubs
Abd: Soft, non distended, nontender
Neuro: Cranial nerves intact 2 through 12, speech fluid no dysarthria aphasia, good strength in all extremities although he has right shoulder issue which limits proximal strength testing of the right arm
Skin: no rash
Extremities: Warm and well-perfused
Scores
Heart Failure Risk
Heart Failure Risk Score: Not Applicable
Heart Score for Chest Pain Patients
STEMI patient?: Not applicable
Withdrawal Assessment of Alcohol
Withdrawal Assessment Completed?: Not applicable
Course
Orders/Labs/Results
Orders:
Orders
11/07/23 12:51
CR Chest - 2 Views Urgent
Comment:
Reason For Exam: cough s/p seizure, eval for aspiration
11/07/23 12:52
Electrocardiogram (*1) Urgent
Reason for Study: Other
Other Reason for Exam: seizure
EKG- Treatment ONCE
11/07/23 13:09
Basic Metabolic Panel Urgent
Complete Blood Count/With Diff Urgent
11/07/23 14:11
CT Head W/o Iv Contrast Urgent
Comment:
Reason For Exam: right facial droop
11/07/23 14:55
Brivaracetam [Briviact] 100 mg IV NOW STA
Abnormal Lab Results
11/07/23
13:09
WBC 11.8 H 10^3/uL
(4.8-10.8)
MCV 94.5 H fL
(80.0-94.0)
MCH 32.1 H pg
(27.0-31.0)
Plt Count 491 H D 10^3/uL
(130-400)
Abs Immat Gran (auto) 0.1 H 10^3/uL
(0-0.05)
Absolute Neuts (auto) 8.3 H 10^3/uL
(1.4-6.5)
Absolute Monos (auto) 1.3 H 10^3/uL
(0.1-0.6)
Immature Gran % 0.8 H %
(0-0.5)
Lymphocytes % 14.9 L %
(20.5-51.1)
Monocytes % 11.2 H %
(1.7-9.3)
BUN 24 H mg/dl
(9-20)
Creatinine 0.6 L mg/dL
(0.7-1.3)
Glucose 112 H mg/dl
(70-99)
11/07/23 13:09
11/07/23 13:09
Vital Signs
Initial and Last Documented VS:
Initial Vital Signs
Temp Pulse Resp BP Pulse Ox
36.7 C 100 16 121/91 92
11/07/23 12:25 11/07/23 12:25 11/07/23 12:25 11/07/23 12:25 11/07/23 12:25
Last Documented Vital Signs
Temp Pulse Resp BP Pulse Ox
36.7 C 98 23 117/86 94
11/07/23 12:25 11/07/23 17:00 11/07/23 17:00 11/07/23 17:00 11/07/23 15:00
MDM/Problems Addressed
Differential Diagnosis Includes:
Seizure
MDM/Problems Addressed:
73-year-old male presents for evaluation after a witnessed seizure in the setting of missed AED. He was just admitted for important management of breakthrough seizure and change in mental status; he is being titrated down on Dilantin and started on
brivaracetam. During the transition from hospital to the fdc he missed his dose of antiepileptics last night and this morning. Had a breakthrough seizure this morning. He was postictal for EMS but normal mental status on arrival per
family. Was tachycardic in triage vital signs all normal on my assessment. Physical exam as documented. He had lab work sent off including a CBC which showed marginal leukocytosis; BMP showed no clinically significant abnormalities. He had a CT
head which was negative, chest x-ray which showed no acute disease�there was a question of linear atelectasis but low clinical suspicion for pneumonia. His EKG showed sinus rhythm. He was observed here in the emergency room with no additional
seizure events. Case was discussed with neurology who recommended increasing brivaracetam to 100 mg twice daily. I called rehab at [facility] as well as the pharmacy for [facility] ([phone]) to coordinate prescription for AEDs. Will discharge
back to [facility].
Chronic conditions affecting care:
Seizure disorder
*Radiology
Radiology exam reviewed: radiology read reviewed
*Pulse Oximetry
Patient hypoxic: no
*EKG
Interpreted by ED Provider?: Yes
Heart Rate: 95
Rate: normal
Rhythm: sinus
[place]: normal axis
Interval: first degree heart block
QRS Pattern: normal QRS
Ischemia: no ischemia
*Critical Care Note
Total Time (30-74mins, 75-104mins- exclusive of procedures): Not Applicable
Data Reviewed
Review of Other/Old Records Reveals: Labs, Records and Discharge Summary
Source: patient, records and family
Patient Management
Social determinants of health affecting care: Strong social support
Discussion with other providers: Dressing Machine Operator (Discussed with neurology) and longterm staff
ED Attending Note
-
Portions of this chart may have been created with voice recognition software.� Occasional wrong word or��sound alike� substitutions may have occurred due to the inherent limitations of voice recognition software.
Discharge Plan
Departure
Patient Disposition: Home (Routine Discharge)
Date of Disposition: 11/07/23
Time of Disposition: 17:05
Patient with high blood pressure during this ER visit?: No
Discharge Problem:
Seizure
Instructions: Seizures, Adult (DC)
Prescriptions:
New
brivaracetam 100 mg tablet
100 mg PO BID Qty: 60 0RF
No Action
phenobarbital 97.2 mg Tablet
97.2 mg PO HS Qty: 0
cyanocobalamin (vitamin B-12) 1,000 mcg Tablet Extended Release
1,000 mcg PO DAILY Qty: 0
diphenhydramine HCl [Banophen] 25 MG capsule
25 mg PO Q4HPRN PRN (Reason: swelling) Qty: 20 0RF
acetaminophen 325 mg Tablet
650 mg PO Q4HPRN PRN (Reason: pain/fever)
cholecalciferol (vitamin D3) [Vitamin D3] 25 mcg (1,000 unit) Tablet
25 mcg PO DAILY
sertraline 25 mg tablet
25 mg PO DAILY
pantoprazole [Protonix] [address] for susp in packet
40 mg PO DAILY
amoxicillin 500 mg Capsule
500 mg PO Q8H Qty: 0 0RF
Briviact 50 mg Tablet
50 mg PO BID Qty: 0 0RF
sennosides [Senna Laxative] 8.6 mg Tablet
17.2 mg PO HS Qty: 0 0RF
lidocaine 4 % Adhesive Patch,Medicated
1 patch topical DAILY Qty: 0 0RF
polyethylene glycol 3350 [HealthyLax] 17 gram Powder In Packet
17 g PO DAILY Qty: 0 0RF
phenytoin sodium extended 100 mg Capsule
100 mg PO HS Qty: 0 0RF
tamsulosin 0.4 mg Capsule
0.4 mg PO HS Qty: 0 0RF
white petrolatum [Hydrophor] 42 % Ointment
1 applic topical DAILY Qty: 0 0RF
Referrals:
Wally Reeder MD [Active] - Call in 1-3 days for appt
Kristen Charles CRNP [Family Provider] -
Activity Restrictions/Additional Instructions:
Thank you for visiting the Emergency Department at [facility].
1. Please schedule a follow up appointment as directed. Call first thing tomorrow morning to make an appointment.
2. If indicated, please take your medications as instructed and indicated on discharge paperwork.
3. If any of your symptoms do not improve, or persist, or become more severe within 6-12 hours, please return to the emergency department for further care.
4. Please return to the emergency department if you develop a headache, neck pain/stiffness, fever greater than 100.4F, chest pain, shortness of breath, persistent nausea, vomiting, slurred speech, difficulty walking, numbness/tingling, weakness,
signs of infection or any other symptoms that are worrisome to you.
Please call [phone] if you have any questions.
Interventions
Interventions:
ED- Fall Risk Assessment Last Done: 11/07/23 12:30
ED- Cardiac Assessment Last Done: 11/07/23 12:30
ED- Neurological Assessment Last Done: 11/07/23 12:30
ED- Pulmonary Assessment Last Done: 11/07/23 12:30
== END 2023-11-07 19:05 | disposition home or self-care (01) ==
LOC: EMR 12:21
PROVIDERS: EMERGENCY PHYSICIAN Emergency Medicine; FAMILY PHYSICIAN Nurse Practitioner Adult Health
DX: G40.909 Epilepsy, unspecified, not intractable, without status epilepticus (principal); R62.50 Unspecified lack of expected normal physiological development in childhood; F41.9 Anxiety disorder, unspecified; Q85.89 Other phakomatoses, not elsewhere classified; G47.30 Sleep apnea, unspecified; Z80.3 Family history of malignant neoplasm of breast
CPT/HCPCS: 99284; 96374; 70450; 71046; 80048; 85025; 93005

== ENCOUNTER → 2023-11-09 09:10 | Outpatient (REF) | payer MEDICARE, SELFPAY | LOC: OLABP 09:10 | PROVIDERS: ATTENDING PHYSICIAN Family Medicine | DX: R56.9 Unspecified convulsions (principal); R27.0 Ataxia, unspecified; T42.0X1D Poisoning by hydantoin derivatives, accidental (unintentional), subsequent encounter; N39.0 Urinary tract infection, site not specified; B95.2 Enterococcus as the cause of diseases classified elsewhere; R33.9 Retention of urine, unspecified; R13.10 Dysphagia, unspecified; I44.1 Atrioventricular block, second degree; R22.41 Localized swelling, mass and lump, right lower limb; M54.50 Low back pain, unspecified | CPT/HCPCS: 36415; 80184 ==

== ENCOUNTER → 2023-11-16 11:48 | Outpatient (REF) | payer OTHER, SELFPAY | LOC: OLABP 11:48 | PROVIDERS: ATTENDING PHYSICIAN Family Medicine | DX: R56.9 Unspecified convulsions (principal); R27.0 Ataxia, unspecified; I44.1 Atrioventricular block, second degree; R13.10 Dysphagia, unspecified; R22.41 Localized swelling, mass and lump, right lower limb; R33.9 Retention of urine, unspecified; B95.2 Enterococcus as the cause of diseases classified elsewhere | CPT/HCPCS: 36415; 80184 ==

== ENCOUNTER → 2023-12-04 11:37 | Outpatient (REF) | payer OTHER, MEDICARE, SELFPAY ==
[2023-12-04 12:08] LABS: % Basophils 0.9 % (0-2); % Eosinophils 12.3 % (0-6); % Immature Granulocytes 0.2 % (0-0.5); % Lymphocytes 35.8 % (20.5-51.1); % Monocytes 17.9 % (1.7-9.3); % Neutrophils 32.9 % (42.2-75.2); Absolute Eosinophils 0.6 10^3/uL (0-0.7); Absolute Lymphocytes 1.7 10^3/uL (1.2-3.4); Absolute Monocytes 0.8 10^3/uL (0.1-0.6); Absolute Neutrophils 1.5 10^3/uL (1.4-6.5); Hematocrit 36.3 % (39.0-52.0); Mean Corp Hgb Conc. 33.1 g/dL (33.0-37.0); Mean Corpuscular Hgb 31.9 pg (27.0-31.0); Mean Corpuscular Volume 96.5 fL (80.0-94.0); Mean Platelet Volume 10.1 fL (7.4-10.4); Nucleated Red Blood Cells % 0 % (-); Platelet Count 235 10^3/uL (130-400); Red Blood Cell Count 3.76 10^6/uL (4.70-6.10); White Blood Cell Count 4.6 10^3/uL (4.8-10.8)
[2023-12-04 12:23] LABS: Blood Urea Nitrogen 12 mg/dl (9-20); Calcium 8.7 mg/dl (8.4-10.2); Carbon Dioxide 26 mmol/L (22-30); Chloride 103 mmol/L (98-107); Glucose 86 mg/dl (70-99); Potassium 4.3 mmol/L (3.5-5.1); Sodium 134 mmol/L (135-145); eGFR > 60.00
== END ==
LOC: OLABP 11:37
PROVIDERS: ATTENDING PHYSICIAN Family Medicine
DX: R13.10 Dysphagia, unspecified (principal); R22.41 Localized swelling, mass and lump, right lower limb; R33.9 Retention of urine, unspecified; R56.9 Unspecified convulsions
CPT/HCPCS: 36415; 80048; 85025

== ENCOUNTER → 2023-12-21 10:37 | Outpatient (REF) | payer MEDICARE, SELFPAY ==
[2023-12-21 11:25] LABS: Urine Albumin Negative (Neg - Trace); Urine Bilirubin Negative (Negative); Urine Character Clear (Clear); Urine Color Yellow; Urine Glucose Negative (Negative); Urine Ketone Negative (Negative); Urine Leukocyte Negative (Negative); Urine Nitrite Negative (Negative); Urine Occult Blood Negative (Negative); Urine Urobilinogen Negative (Neg - 1+)
== END ==
LOC: OLABLV 10:37
PROVIDERS: ATTENDING PHYSICIAN Nurse Practitioner Adult Health
DX: N39.0 Urinary tract infection, site not specified (principal)
CPT/HCPCS: 81003

== ENCOUNTER → 2023-12-28 12:31 | Outpatient (REF) | payer MEDICARE, SELFPAY ==
[2023-12-28 12:51] LABS: % Basophils 1.1 % (0-2); % Eosinophils 6.1 % (0-6); % Immature Granulocytes 0.2 % (0-0.5); % Monocytes 15.5 % (1.7-9.3); % Neutrophils 42.1 % (42.2-75.2); Absolute Basophils 0.1 10^3/uL (0-0.2); Absolute Eosinophils 0.3 10^3/uL (0-0.7); Absolute Lymphocytes 1.9 10^3/uL (1.2-3.4); Absolute Monocytes 0.8 10^3/uL (0.1-0.6); Absolute Neutrophils 2.3 10^3/uL (1.4-6.5); Hematocrit 38.8 % (39.0-52.0); Hemoglobin 12.5 g/dL (13.0-18.0); Mean Corp Hgb Conc. 32.2 g/dL (33.0-37.0); Mean Corpuscular Hgb 31.6 pg (27.0-31.0); Mean Platelet Volume 10.4 fL (7.4-10.4); Nucleated Red Blood Cells % 0 % (-); Platelet Count 291 10^3/uL (130-400); Red Blood Cell Count 3.96 10^6/uL (4.70-6.10); Red Cell Dist. Width 14.9 % (11.5-14.5); White Blood Cell Count 5.4 10^3/uL (4.8-10.8)
[2023-12-28 13:02] LABS: ALT (SGPT) 25 U/L (0-50); AST (SGOT) 20 U/L (17-59); Albumin 3.7 g/dl (3.5-5.0); Alkaline Phosphatase 94 U/L (38-126); Blood Urea Nitrogen 15 mg/dl (9-20); Calcium 9.2 mg/dl (8.4-10.2); Carbon Dioxide 26 mmol/L (22-30); Chloride 105 mmol/L (98-107); Glucose 86 mg/dl (70-99); Potassium 4.2 mmol/L (3.5-5.1); Sodium 136 mmol/L (135-145); Total Bilirubin 0.3 mg/dl (0.2-1.3); Total Protein 6.6 g/dl (6.3-8.2); eGFR > 60.00
[2023-12-28 13:36] LABS: TSH 1.41 uIU/ml (0.47-4.68)
== END ==
LOC: OLABLV 12:31
PROVIDERS: ATTENDING PHYSICIAN Nurse Practitioner Adult Health
DX: G40.509 Epileptic seizures related to external causes, not intractable, without status epilepticus (principal); R56.9 Unspecified convulsions; I10 Essential (primary) hypertension
CPT/HCPCS: 36415; 80053; 80184; 84443; 85025

== ENCOUNTER 2023-12-31 00:39 | Emergency (ER) | payer MEDICARE, SELFPAY ==
--- NOTE | 2023-12-31 00:50 | ED.GENMED ---
History of Present Illness
General
Chief Complaint: Fall
Time Seen by Provider: 12/31/23 00:50
History of Present Illness
History of Present Illness:
HPI: The patient presents after being found down. He was seen at [facility] [facility] yesterday after change in mental status after a fall. He is currently at his baseline mental status. He was sent here because he was complaining of pain in the right
shoulder and the right knee. He apparently has history of seizure disorder, developmental delay. The patient is a rather difficult to understand historian.
EXAM:
GENERAL: Appears in no distress
HEENT: Moist oral mucosa
CARDIOVASCULAR: Regular rate and rhythm
PULMONARY: No respiratory distress, breathing is nonlabored, equal and clear breath sounds
ABDOMEN: Soft and nontender with no peritoneal signs
NEUROLOGIC: The patient has evidence of dementia, not oriented to month or place, strength is equal in all extremities
EXTREMITIES: Moves all extremities equally, no tenderness, no edema
PYSCHIATRIC: Very limited historian, poor insight and judgment
SKIN: Large hemangioma over the upper face/forehead
TIME OF INITIAL ENCOUNTER: 1 AM
NUMBER AND COMPLEXITY OF PROBLEMS ADDRESSED AT THE ENCOUNTER
� Chronic conditions affecting care: Seizure disorder/epilepsy, developmental delay
� Acute Exacerbation and/or Progression of Chronic Illness: This is an acute problem
� Differential Diagnosis includes: Contusion, fracture,. Chronic pain
AMOUNT AND/OR COMPLEXITY OF DATA TO BE REVIEWED AND ANALYZED
� I performed an independent evaluation of and my interpretation is:
EKG:
CT:
X-rays: I reviewed x-ray of the right shoulder which shows chronic deform but he an x-ray of the right knee which shows mild DJD, no definite fracture
Laboratory Studies:
Other:
� Review of other/old records: CT of the brain 1 month ago showed no acute abnormality with evidence of prior craniotomy
� Clinical information was obtained by an independent historian: I did speak to EMS for history upon arrival
� Prescriptions/Medications Considered but not given:
� Further testing considered but not performed:
RISK OF COMPLICATIONS AND/OR MORBIDITY OR MORTALITY OF PATIENT MANAGEMENT
� Social determinants of health affecting care: Resides at the [facility]
� Discussion with other providers: Spoke to EMS
� Escalation of care including admission/observation vs risk of discharge considered: I offered and recommended x-rays�he voiced concerned about this causing an epileptic seizure. I am told that he is at his baseline mental
status from EMS. The patient has no specific complaints but reported some vague discomfort regarding knee and shoulder which sounds to be chronic. No clear acute abnormality at this time.
Past History
Past History
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 Sleep apnea)
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
Social History
Tobacco: Non-smoker
Alcohol: None
Drug: None
Personal: Single
Living: assisted living
Employment: Disabled
Family History
Family History: Other (breast cancer)
Phy Exam
Physical Exam
Physical Exam:
See HPI
Course
Orders/Labs/Results
Orders:
Orders
12/31/23 00:56
CR Knee- Right 4 Or More View* Urgent
Comment:
Reason For Exam: trauma
CR Shoulder - Right Min 2 View Urgent
Comment:
Reason For Exam: trauma
Vital Signs
Initial and Last Documented VS:
Initial Vital Signs
Temp Pulse Resp BP
97.4 F 87 16 149/87
12/31/23 00:53 12/31/23 00:53 12/31/23 00:53 12/31/23 00:53
Last Documented Vital Signs
Temp Pulse Resp BP
97.4 F 87 16 149/87
12/31/23 00:53 12/31/23 00:53 12/31/23 00:53 12/31/23 00:53
*Critical Care Note
Total Time (30-74mins, 75-104mins- exclusive of procedures): Not Applicable
ED Attending Note
-
Portions of this chart may have been created with voice recognition software.� Occasional wrong word or��sound alike� substitutions may have occurred due to the inherent limitations of voice recognition software.
Discharge Plan
Departure
Patient Disposition: Home (Routine Discharge)
Date of Disposition: 12/31/23
Time of Disposition: 01:29
Patient with high blood pressure during this ER visit?: Yes
Discharge Problem:
Fall
Instructions: Contusion (DC)
Prescriptions:
No Action
phenobarbital 97.2 mg Tablet
97.2 mg PO HS Qty: 0
cyanocobalamin (vitamin B-12) 1,000 mcg Tablet Extended Release
1,000 mcg PO DAILY Qty: 0
cholecalciferol (vitamin D3) [Vitamin D3] 25 mcg (1,000 unit) Tablet
25 mcg PO DAILY
sertraline 25 mg tablet
25 mg PO DAILY
pantoprazole [Protonix] [address] for susp in packet
40 mg PO DAILY
sennosides [Senna Laxative] 8.6 mg Tablet
17.2 mg PO HS Qty: 0 0RF
lidocaine 4 % Adhesive Patch,Medicated
1 patch topical DAILY Qty: 0 0RF
Rx Instructions:
on am/off hs
polyethylene glycol 3350 [HealthyLax] 17 gram Powder In Packet
17 g PO DAILY Qty: 0 0RF
tamsulosin 0.4 mg Capsule
0.4 mg PO HS Qty: 0 0RF
brivaracetam 100 mg tablet
100 mg PO BID Qty: 60 0RF
Activity Restrictions/Additional Instructions:
I see no clear x-ray abnormality on the right knee or right shoulder other than chronic degenerative changes. Return here if worse.
Interventions
Interventions:
*Risk Screen - Suicide Last Done: 12/31/23 00:53
*General Assessment Last Done: 12/31/23 00:45
*Neglect/Abuse Screening Last Done: 12/31/23 00:45
*ED COVID-19 Vaccine History Last Done: 12/31/23 00:45
ED-Musculoskeletal Assessment Last Done: 12/31/23 01:00
ED- Neurological Assessment Last Done: 12/31/23 01:00
ED-Skin Assessment Last Done: 12/31/23 01:00
Discharge Date and Time
Print Language: ARABIC
[2023-12-31 00:53] VITALS: BP 149/87; BMI 24.9
--- NOTE | 2023-12-31 01:08 | EDRN ---
Pt is a poor historian. Pt talking about his beloved 103 year old grandmother who recently . Pt does not like oral temperature being taken because he is afraid it will upset his stomach so axillary temp obtained after couple failed attempts to
obtain oral temp. Pt lying on L side with eyes closed while talking. Physician asked pt a question and pt replied 'Stick it up your ass!' Pt moved his R leg and draped it over the siderail of the stretcher while he was talking. When pt able to
focus, he complains of pain R shoulder and R knee however both are nontender and he moves them on his own. Pt unable to provide information regarding his recent falls.
[2023-12-31 02:20] VITALS: BP 132/64
--- NOTE | 2023-12-31 02:29 | EDRN ---
Report given to transport crew - called Yady chioma Aranda answer - ED number written on d/c instructions for someone to call if they have questions.
== END 2023-12-31 02:30 | disposition home or self-care (01) ==
LOC: EMR 00:39
PROVIDERS: EMERGENCY PHYSICIAN Emergency Medicine; FAMILY PHYSICIAN Nurse Practitioner Adult Health
DX: M25.511 Pain in right shoulder (principal); M25.561 Pain in right knee; W19.XXXA Unspecified fall, initial encounter; R03.0 Elevated blood-pressure reading, without diagnosis of hypertension; G40.909 Epilepsy, unspecified, not intractable, without status epilepticus
CPT/HCPCS: 99283; 73030; 73564

== ENCOUNTER 2023-12-31 11:53 | Inpatient (IN) | payer MEDICARE, SELFPAY ==
[2023-12-31] VITALS (10 sets, daily range): BP systolic 109–143; BP diastolic 76–98; PULSE 81; BMI 24.1
--- NOTE | 2023-12-31 07:55 | ED.GENMED ---
History of Present Illness
General
Chief Complaint: Weakness
Source: patient
Exam Limitations: none
Time Seen by Provider: 12/31/23 07:49
Nursing documentation reviewed up to this point in time: agreed with
History of Present Illness
History of Present Illness:
Patient with history of developmental delay and recent fall, discharged from the ED earlier this morning after evaluation for right shoulder pain, presents to ED secondary to persistent right upper arm weakness, noted by receiving facility starting
at 3 AM this morning, after he was discharged. Patient upon arrival is alert and awake, and is complaining of mild right arm pain. Denies headache. Denies dizziness. Denies neck pain. Denies difficulty with leg movement.
Past History
Past History
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 Sleep apnea)
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
Social History
Tobacco: Non-smoker
Alcohol: None
Drug: None
Personal: Single
Living: assisted living
Employment: Disabled
Family History
Family History: Other (breast cancer)
Review of Systems
Review of Systems
Allergies reviewed?: Yes
All Other Systems: ROS reviewed and negative except as documented in HPI and ROS
Constitutional: Reports no symptoms
EENT: Reports no symptoms
Respiratory: Reports no symptoms
Cardiac: Reports no symptoms
ABD/GI: Reports no symptoms
: Reports no symptoms
Musculoskeletal: Reports no symptoms
Skin: Reports no symptoms
Neurological: Reports weakness
Phy Exam
Physical Exam
Physical Exam:
Physical Exam
General: no apparent distress, not acutely ill. afebrile
Head: nc/at. eomi
Neck: supple. normal range of motion.
Heart: s1/s2 regular rate and rhythm, no murmur. equal radial pulses.
Lungs: no acute respiratory distress. clear bilaterally
Abdomen: normal bowel sounds. not tender.
Neuro: alert and oriented x 2. RUE/RLE motor: 4/5 strength. normal speech.
Skin: no rash. birthmark noted on forehead/nose, chronic
Psychiatric: well kept. interactive and cooperative
Extremities: no edema. no calf tenderness.
Course
Orders/Labs/Results
Orders:
Orders
12/31/23 07:50
CT Head W/o Iv Contrast Urgent
Comment:
Reason For Exam: RUE weakness
12/31/23 07:52
CT Cervical Spine W/o Iv Contr Urgent
Comment:
Reason For Exam: trauma with RUE weakness
12/31/23 07:53
Electrocardiogram (*1) Urgent
Reason for Study: TIA/Stroke
EKG- Treatment ONCE
12/31/23 07:59
Complete Blood Count/No Diff Urgent
12/31/23 09:02
Aspirin Chewable [Low Strength Aspirin] 324 mg PO NOW STA
12/31/23 09:06
Aspirin 325 mg PO NOW STA
12/31/23 09:07
MR Brain Without Contrast Routine
Comment:
Reason For Exam: ? New left ischemic stroke? Right arm > leg weak
Recent pill cam endoscopy?: No
Neurological Checks As Directed
Frequency: Per unit guidelines
12/31/23 09:11
Basic Metabolic Panel Urgent
Magnesium Urgent
12/31/23 11:39
Admit/Transfer Patient As Directed
Co-Sign Provider:
Level of Care: Inpatient admission
Assign to:: Telemetry
Physician / Group: Hospitalist
Diagnosis: Right sidedweakness
Reason for Telemetry: CVA/TIA
Date to Stop Telemetry: 01/03/24
Time to Stop Telemetry: 11:00
Reason for Hospitalization: Right sidedweakness rule out CVA
Expected length of stay greater than two midnights?: Yes
ELOS- Estimated Length of Stay in days: 2
I certify the patient meets the requirements for IP care: Yes
12/31/23 11:41
Code Status As Directed
Resuscitation Status: Do not resuscitate
Reached after discussion with pt or family/Healthcare POA: Yes
Physician note:: Family
12/31/23 11:42
DNR Bracelet Application ONCE
12/31/23 12:40
Acetaminophen [Tylenol/Feverall] 650 mg RECTAL Q4HPRN PRN
Acetaminophen [Tylenol] 650 mg PO Q4HPRN PRN
Bisacodyl [Dulcolax] 10 mg RECTAL [id number] PRN
Docusate W/Senna [Senokot-S] 1 tablet PO BIDPRN PRN
Polyethylene Glycol Powder [Miralax] 17 grams PO DAILYPRN PRN
12/31/23 12:40
Case Management Consult ONCE
Case Management Consult: Discharge Planning
Comment: stroke/tia
DIETARY CONSULT Routine
Reason for Consult: stroke/TIA
NEUROLOGY CONSULT Urgent
Consulting Provider: Ivan Duncan
Was physician already notified: Yes
Reason for consult: right sided weakness
Bottle Gauger Urgent
Activity As Directed
Activity Level: Encourage Progressive Amb
Activity As Directed
Activity Level: Encourage Progressive Amb
NIH Stroke Scale As Directed
Directions: Per protocol
Comment: every shift and with any change in condition or mental status
Neurological Checks As Directed
Frequency: q4h
Additional Instructions:: q4h x 24h upon admission to the floor, then qshift & with any change in condition
and mental status
Patient Education As Directed
Type: Stroke education packet
Comment: provide to patient and family
Pneumatic Compression Sleeves As Directed
Type: Knee high
Precautions As Directed
Type of Precautions: Other
Comment: fall
Swallow Screening CVA/TIA ONLY As Directed
Comment: NPO until swallowing screening completed
If patient FAILS swallow screening:: NPO, Speech Therapy consult, Aspiration Precautions
If patient PASSES swallow screening, diet:: IDDSI 4 Pureed
Above diet order entered?: Yes- passed screening
Vital Signs As Directed
Frequency: Per unit guidelines
Vital Signs As Directed
Frequency: Per unit guidelines
Ot Eval And Treat Routine
Pt Eval And Treat Routine
Activity Level: Ambulate
Speech Therapy Eval & Treat Routine
DX Deep Vein Thrombosis Video Routine
12/31/23 13:46
Bacitracin/Polymyxin B [Polysporin Ointment] 1 applic TOPICAL BIDPRN PRN
12/31/23 20:00
Brivaracetam [Briviact] 100 mg PO BID
12/31/23 22:00
Phenobarbital [Luminal] 97.2 mg PO HS
Sennosides [Senokot] 17.2 mg PO HS
Tamsulosin [Flomax] 0.4 mg PO HS
01/01/24 06:00
Basic Metabolic Panel IN AM
Cardiovascular Evaluation IN AM
Complete Blood Count/No Diff IN AM
01/01/24 08:00
Aspirin Low Dose EC [Aspir Low (Enteric Coated)] 81 mg PO DAILY
Cholecalciferol (Vitamin D3) [VITAMIN D3 (cholecalciferol)] 25 mcg PO DAILY
Cyanocobalamin [Vitamin B-12] 1,000 mcg PO DAILY
Lidocaine [Lidocaine 4% Patch] 1 patch TOPICAL DAILY
Pantoprazole [Protonix] 40 mg PO DAILY
Polyethylene Glycol Powder [Miralax] 17 grams PO DAILY
Sertraline HCl [Zoloft] 25 mg PO DAILY
01/03/24 11:00
DC Protocol for Telemetry ONCE
Abnormal Lab Results
12/31/23 12/31/23
07:59 09:11
RBC 4.55 L 10^6/uL
(4.70-6.10)
MCH 31.6 H pg
(27.0-31.0)
RDW 14.8 H %
(11.5-14.5)
Creatinine 0.4 L mg/dL
(0.7-1.3)
Glucose 107 H mg/dl
(70-99)
12/31/23 07:59
12/31/23 09:11
Vital Signs
Initial and Last Documented VS:
Initial Vital Signs
Temp Pulse Resp BP Pulse Ox
97.7 F 95 16 142/77 96
12/31/23 07:55 12/31/23 07:55 12/31/23 07:55 12/31/23 07:55 12/31/23 07:55
Last Documented Vital Signs
Temp Pulse Resp BP Pulse Ox
97.8 F 94 18 129/90 95
12/31/23 13:07 12/31/23 13:07 12/31/23 13:07 12/31/23 13:07 12/31/23 13:07
MDM/Problems Addressed
MDM/Problems Addressed:
CT head: NAD.
Patient is not a candidate for tenecteplase, as his symptoms started over 5 hours ago.
Patient evaluated in ED by Dr. Duncan, neurology. Recommend starting patient on aspirin along with further workup, including potential MRI brain as an inpatient.
In addition, notified by patient's guardian, regarding patient's current living situation. Request case management consultation, for potential long-term placement at a different facility.
*Critical Care Note
Total Time (30-74mins, 75-104mins- exclusive of procedures): Not Applicable
ED Attending Note
-
Portions of this chart may have been created with voice recognition software.� Occasional wrong word or��sound alike� substitutions may have occurred due to the inherent limitations of voice recognition software.
Discharge Plan
Departure
Patient Disposition: Admit
Date of Disposition: 12/31/23
Time of Disposition: 09:06
Admit to: Telemetry
Presentation/result/management discussed w/ accepting MD/DO: Hospitalist
Discharge Problem:
Acute CVA (cerebrovascular accident)
Interventions
Interventions:
*Risk Screen - Suicide Last Done: 12/31/23 07:58
*General Assessment Last Done: 12/31/23 07:57
*Neglect/Abuse Screening Last Done: 12/31/23 07:58
*ED COVID-19 Vaccine History Last Done: 12/31/23 07:57
*Nursing Disposition Last Done: 12/31/23 12:56
ED- Cardiac Assessment Last Done: 12/31/23 07:58
ED- Neurological Assessment Last Done: 12/31/23 09:06
ED- Pulmonary Assessment Last Done: 12/31/23 07:58
Discharge Date and Time
Discharge Date/Time: 12/31/23 12:57
[2023-12-31 08:09] LABS: Hematocrit 42.1 % (39.0-52.0); Hemoglobin 14.4 g/dL (13.0-18.0); Mean Corp Hgb Conc. 34.2 g/dL (33.0-37.0); Mean Corpuscular Hgb 31.6 pg (27.0-31.0); Mean Corpuscular Volume 92.5 fL (80.0-94.0); Mean Platelet Volume 8.9 fL (7.4-10.4); Platelet Count 291 10^3/uL (130-400); Red Blood Cell Count 4.55 10^6/uL (4.70-6.10); Red Cell Dist. Width 14.8 % (11.5-14.5); White Blood Cell Count 8.1 10^3/uL (4.8-10.8)
--- NOTE | 2023-12-31 08:24 | CON.NEURO4 ---
Consultation - Neurology 4
-
CONSULTING PHYSICIAN: Nam Duncan
REFERRING PHYSICIAN: ER
DICTATED BY: Nam Duncan
DATE/TIME OF REQUEST: 12/31/23
DATE/TIME OF CONSULTATION: 12/31/23
Reason for Consultation: Left arm more then left leg weakness
History of Present Illness:
Patient is a 73-year-old male with a past history of epilepsy, Sturge-Redman syndrome, right frozen shoulder presents to the hospital from custodial due to speech abnormality and concern for worsening weakness of the right arm and leg compared to
baseline. Duration of speech abnormality is unclear. Patient does have some chronic right arm weakness and issues related to shoulder issues as well as history of left sided brain tumor resection years ago. Patient says maybe a mild amount of
discomfort to the right shoulder.
Most recent seizure seems was several months ago.
Patient had had ER visit earlier in the night after a fall and had been found down. At this complaining of some right shoulder pain in the right knee as well. He had shoulder x-ray, no clear fractures or indications for further testing or
admission.
Past Medical History: Seizure disorder, brain tumor, Sturge-Redman syndrome, HLD, GERD, vitamin B12 and D deficiency, gait dysfunction, depression, chronic right shoulder pain and weakness (frozen shoulder)
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
Family History: Reviewed and noncontributory.
Social History: Lives at custodial, no tobacco, or alcohol
Allergies: No known allergies.
Review of Symptoms:
Patient denies any fever, headache, chest pain, shortness of breath, GI or symptoms.
Physical Exam:
Elderly man with Sturge-Redman port wine stain on the face no signs of head or neck trauma, shoulder has some pain to passive range of motion but no obvious fracture or dislocation is seen, heart rate regular breathing unlabored abdomen is soft
nontender oropharynx is clear no neck masses there is some mild right leg abrasions
Neurologic Examination:
Mental status shows patient with mild intellectual disability who is very pleasant but can sometimes get irritable, obeys commands consistently, poor historian, no aphasia, no neglect
Cranial nerve examination shows pupils 3 mm equal round react light bilaterally, visual harmon intact confrontation bilaterally, smile symmetric, no dysarthria
Right arm shows efforts against gravity but does not maintain against gravity when held in the air, shows 4/5 arm extension at times showing triceps strength, right leg has some increased tone with mild spasticity/5 hip flexion. Left arm and leg
5/5.
Intact to noxious stimulation throughout.
No ataxia on right arm.
Gait not assessed
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
Impressions
1. Right arm and right leg weakness along with short lasting speech difficulty. Suspect that these issues are more related to his chronic history of shoulder problems as well as chronic right arm more than leg weakness, however with a history of
small subcortical strokes on CT head along with the transient speech change I do think would be prudent to evaluate for any new ischemic stroke with a brain MRI. CT cervical spine is ruled out any fracture, do not suspect cervical spine lesion.
2. No overt seizure activity has been seen, and the differential diagnosis would be a Pj's paralysis, but at this time I do not see strong indication to change seizure medications
3.
4.
Recommendations:
1. Check brain MRI without contrast
2. Give aspirin 325 mg once now and start aspirin 81 mg daily for tomorrow
3. Would keep his existing antiseizure medication regimen the same 100 mg brivaracetam twice daily as well as phenobarbital 97.2 mg nightly
4. Neurologic checks
5. Goal normotension
6. Minimize sedating medications
Will follow
Discussed patient care with: Dr Zelaya
[2023-12-31] MEDS: LOW STRENGTH ASPIRIN 324 MG PO (09:07)
[2023-12-31 09:33] LABS: Blood Urea Nitrogen 11 mg/dl (9-20); Calcium 9.9 mg/dl (8.4-10.2); Carbon Dioxide 24 mmol/L (22-30); Chloride 107 mmol/L (98-107); Glucose 107 mg/dl (70-99); Potassium 4.2 mmol/L (3.5-5.1); Sodium 138 mmol/L (135-145); eGFR > 60.00
--- NOTE | 2023-12-31 11:56 | HPS.HSE ---
Family Physician
-
Family Physician: NO INTERVIEW UNKNOWN
Chief Complaint
-
Weakness
History of Present Illness
72-year-old male with history of seizures and Sturge-Redman syndrome resides at [facility]. He had a fall and some bleeding from the hemangioma on the forehead and was transferred to [facility] yesterday. He was kept overnight and cleared for
discharge by neurosurgery and was discharged. Patient had another fall and also they felt that his right side was slightly more weak and speech was not clear therefore sent to [facility].
Medical History
Past Medical History
Past Medical History: Reports Other
Additional Past Medical History:
Sleep apnea, developmental delay, seizures, kyphosis, right frozen shoulder, anxiety, Sturge-Redman syndrome, history of aspiration pneumonia, history of food impaction
Past Surgical History: Reports Other
Additional Past Surgical History:
History of brain tumor resection at age 2
Social History
Tobacco: Non-smoker
Alcohol: None
Drug: None
Personal: Single
Living: Assisted Living
Employment: Not Employed
Family History
Family History: Cancer (Father with prostate cancer Sister with breast cancer, mother with colon cancer)
Allergies / Home Medications
Allergies reflects when Allergies were last updated in [facility].
Home Medications with original date entered in [facility]
Allergy/Medication List:
Allergies
Allergy/AdvReac Type Severity Reaction Status Date / Time
No Known Allergies Allergy Verified 12/31/23 00:55
Home Medications
phenobarbital 97.2 mg tablet 97.2 mg PO HS Seizures ##0 08/19/14
cyanocobalamin (vitamin B-12) 1,000 mcg tablet,extended release 1,000 mcg PO DAILY Supplement ##0 05/07/16
cholecalciferol (vitamin D3) 25 mcg (1,000 unit) tablet (Vitamin D3) 25 mcg PO DAILY Supplement 10/25/23
pantoprazole 40 mg granules delayed-release for susp in packet (Protonix) 40 mg PO DAILY Gastrointestinal Issue 10/26/23
sertraline 25 mg tablet 25 mg PO DAILY Depression 10/26/23
lidocaine 4 % topical patch 1 patch topical DAILY Pain #0 ea 11/06/23
polyethylene glycol 3350 17 gram oral powder packet (HealthyLax) 17 g PO DAILY Constipation #0 ea 11/06/23
sennosides 8.6 mg tablet (Senna Laxative) 17.2 mg (2 x 8.6 mg) PO HS Constipation #0 tabs 11/06/23
tamsulosin 0.4 mg capsule 0.4 mg PO HS Urinary issue #0 caps 11/06/23
brivaracetam 100 mg tablet 100 mg PO BID #60 tabs 11/07/23
neomycin-bacitracn Zn-polymyxn 3.5 mg-400 unit-5,000 unit top oint pkt (Triple Antibiotic) 1 applic topical BIDPRN PRN forhead lacceration 12/31/23
Review of Systems
-
History Source: Patient
Respiratory: Denies Trouble Breathing
Cardiac: Denies Chest Pain
Musculoskeletal: Reports Muscle Stiffness (Right shoulder)
Neurological: Reports Weakness (Right side)
Physical Exam
Vital Signs
Vital Signs
Temp Pulse Resp BP Pulse Ox
97.7 F 87 13 134/98 96
12/31/23 07:55 12/31/23 10:00 12/31/23 10:00 12/31/23 10:00 12/31/23 07:55
Physical Exam
General: No Apparent Distress
Respiratory: Clear
Cardiac: S1/S2 and Regular Rhythm
GI: Soft, Non Tender and Normal Bowel Sounds
Skin: Ulcers (Multiple small abrasions bilateral lower extremity and feet, hemangioma on the right forehead with a scab)
Neuro: Awake, Alert, Cranial Nerves Intact, DTR's Intact & Symmetrical and Other (Right arm and right lower extremity weakness noted); No Facial Droop
Laboratory Results
-
12/31/23 07:59
12/31/23 09:11
Data Reviewed
-
CT Scan: Report Reviewed by me (CT of the head-extensive bilateral cortical calcifications compatible with Sturge-Redman syndrome. 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 Small old lacunar infarcts in the left
internal capsule, left caudate.) and Other (CT cervical spine-degenerative changes without progression no cervical spine fracture)
Medical Tests (Nuc Med, Echo, EKG etc): Image Personally Visualized and interpreted (Sinus rhythm first-degree AV block right axis deviation, QTc 504)
Impression/Plan
-
IMPRESSION/PLAN:
#Right-sided weakness
Admitted for ruling out stroke
MRI of the brain
Will provide Ativan prior to MRI
Neurochecks, NIH scale
Neurology evaluation
PT OT and speech evaluation
If cleared I have ordered pureed diet till formal speech eval.
# Seizures-currently on Briviact and phenobarbital
Morning dose of Briviact ordered
# History of dysphagia and food impaction summer
Continue PPI
# First-degree heart block and long QTc
Monitor on telemetry
Check magnesium
# Sturge-Redman syndrome
# Developmental delay
# Chronic back pain/scoliosis
# Neuropathy NOS
# Frozen shoulder on the right
# Anxiety/depression-on sertraline
# History of vitamin D deficiency-continue vitamin D supplement
# Small ulcers on the legs
Large area of abrasion on the right hip area
Possibly from trauma
# Sleep apnea-not on CPAP
# CODE STATUS-DNR per D/W Family
# DVT prophylaxis-SCDs
D/W [facility] at bed side
Patient may need higher level of care than what [facility] can provide.
[2023-12-31] MEDS: NSS (PRESERVATIVE FREE) 0.25 ML IV (14:02)
[2023-12-31] MEDS: ATIVAN 0.5 MG IV (14:02)
--- NOTE | 2023-12-31 14:13 | TRANSFER ---
Pt transferred from ED to [facility] at 1300. Pulled over from stretcher to bed. Pt is AAOx1 did not know where he was but is oriented to himself. Placed on tele monitor #22, admission and assessment complete by this RN. Call brody within reach. NIH 9 for
minimal movement in right arm, no right leg movement, and partial right sided facial droop. Pt is having hard time following commands. Passed his swallow screen and sent to MRI.
[2023-12-31] MEDS: BRIVIACT 100 MG PO ×2 (15:49→21:09)
--- NOTE | 2023-12-31 16:29 | PTOTSP ---
Dysphagia Evaluation
Patient with a history of dysphagia with aspiration PNA and food impaction. A video swallow study 01/29/2020 revealed functional oral/pharyngeal stages of swallowing with no aspiration. An EGD 04/01/2022 revealed food in lower third of the esophagus
(removed), mildly severe esophagitis, and tortuous esophagus.
Patient's brother reported that patient was on a minced/moist diet with thin liquids prior to this admission with full supervision due to history of rapid rate of ingestion with subsequent food impactions.
During this clinical bedside swallowing evaluation, oral/pharyngeal swallow suspected to be grossly WFL. No overt s/s of aspiration observed. Suspect patient's swallow is at his baseline at this time.
Recommend:
1. IDDSI Level 5 (Minced and Moist), IDDSI Level 0 (Thin)
2. FULL SUPERVISION, ASSIST NEEDED
3. Strategies: upright to 90 degrees, small single sips/bites, eat slowly and chew thoroughly, alternate sips/bites to assist with esophageal clearance, upright for 30 minutes after PO as a reflux precaution
4. Medications as best tolerated
5. No further dysphagia therapy warranted at this time. Please reconsult as appropriate.
Will hold speech/language evaluation as MRI of Brain negative for acute stroke and speech changes documented as transient. Please reconsult as appropriate.
[2023-12-31] MEDS: LUMINAL 97.2000000000000028 MG PO (21:09)
[2023-12-31] MEDS: FLOMAX 0.400000000000000022 MG PO (21:09)
[2023-12-31] MEDS: SENOKOT 17.1999999999999993 MG PO (21:09)
[2023-12-31] MEDS: TYLENOL 650 MG PO (21:21)
[2024-01-01] VITALS (9 sets, daily range): BP systolic 110–143; BP diastolic 60–84; PULSE 81–88; O2SAT 95–96; BMI 23.8
--- NOTE | 2024-01-01 03:28 | PTCARENOTE ---
Patient arrive on unit @2225 from IVU via wheelchair. Patient AAOx3, denies any pain or discomfort, skin assessment completed, oriented to unit, call brody within reach.
[2024-01-01 06:26] LABS: Hematocrit 40.7 % (39.0-52.0); Hemoglobin 13.7 g/dL (13.0-18.0); Mean Corp Hgb Conc. 33.7 g/dL (33.0-37.0); Mean Corpuscular Hgb 31.5 pg (27.0-31.0); Mean Corpuscular Volume 93.6 fL (80.0-94.0); Mean Platelet Volume 9.4 fL (7.4-10.4); Platelet Count 282 10^3/uL (130-400); Red Blood Cell Count 4.35 10^6/uL (4.70-6.10); Red Cell Dist. Width 14.9 % (11.5-14.5); White Blood Cell Count 6.5 10^3/uL (4.8-10.8)
[2024-01-01 06:46] LABS: Blood Urea Nitrogen 12 mg/dl (9-20); Calcium 9.5 mg/dl (8.4-10.2); Carbon Dioxide 26 mmol/L (22-30); Chloride 105 mmol/L (98-107); Estimated Creatinine Clearance 96 ml/min; Glucose 92 mg/dl (70-99); HDL Cholesterol 74 mg/dl; LDL Cholesterol, Calculated 152 mg/dl; Potassium 4.2 mmol/L (3.5-5.1); Sodium 136 mmol/L (135-145); Total Cholesterol 243 mg/dl (50-199); Triglyceride 86 mg/dl (10-149); Very Low Density Lipoprotein 17 mg/dl (0-30); eGFR > 60.00
--- NOTE | 2024-01-01 08:09 | W.PN.NEURO.1 ---
Today's Communication / Plan
-
Recommendations:
continue aspirin 81 mg daily due to possible non-visualized stroke of unclear etiology
start atorvastatin 40 mg daily
check CTA head and neck for completeness
maintain 100 mg brivaracetam twice daily as well as phenobarbital 97.2 mg nightly
Goal normotension
medical educational materials
Neuro Assessment/Plan
Assessment
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
MRI of brain: unchanged from previous
CT cervical spine ruled out any fracture, do not suspect cervical spine lesion.
Impressions
1. Right arm and right leg weakness along with short lasting speech difficulty. History of small subcortical strokes on CT head along with the transient speech change now suggestive of MRI-negative ischemic stroke
2. No overt seizure activity has been seen, and the differential diagnosis would be a Pj's paralysis, now less likely based on persistence > 24 hours
Patient not a candidate for Tenecteplase or IAT due to time frame out of window.
Plan
Recommendations:
continue aspirin 81 mg daily due to possible non-visualized stroke of unclear etiology
start atorvastatin 40 mg daily
check CTA head and neck for completeness
maintain 100 mg brivaracetam twice daily as well as phenobarbital 97.2 mg nightly
Goal normotension
medical educational materials
Will follow pending results.
Subjective/Objective
Subjective Data
Date of Service: January 01, 2024
Patient unable to provide own medical history.
Objective Data
Vital Signs
Temp Pulse Resp BP Pulse Ox
36.4 C 93 18 143/80 96
01/01/24 07:30 01/01/24 07:30 01/01/24 07:30 01/01/24 07:30 05/07/24 07:30
Lab Results
01/01/24 05:38
01/01/24 05:38
Sodium 136 mmol/L (135-145) 01/01/24 05:38
Potassium 4.2 mmol/L (3.5-5.1) 01/01/24 05:38
BUN 12 mg/dl (9-20) 01/01/24 05:38
Glucose 92 mg/dl (70-99) 01/01/24 05:38
Calcium 9.5 mg/dl (8.4-10.2) 01/01/24 05:38
LDL Cholesterol, Calc 152 mg/dl 01/01/24 05:38
Patient Allergies
No Known Allergies Allergy (Verified 12/31/23 00:55)
Review of Systems
-
Unable to obtain full review of systems at this time due to: Other (intellectual disability)
History Source: Patient
All other systems: Reviewed and negative
Neuro: Negative Weakness
Physical Exam
-
General: Comfortable
Eyes: No Ptosis
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
Respiratory: No Dyspnea; Negative Accessory Resp Muscle Use
Cardiac: No JVD
GI: Non-distended
Skin: Negative Rash
Extremities: No Clubbing, No Cyanosis and No Edema
Psych: Other (A bit of a character, interactive and conversational); Negative Intact Judgement/Insight
Extended Neurological Exam
Mood & Affect: Mood Unremarkable
Attention Span & Concentration: Awake, Alert and Interactive
Memory: Unremarkable and Other (mild difficulty with 1-step requests)
Tremor: Hand Tremor Absent and Head Tremor Absent
Involuntary Movement: None
Speech: Negative Expressive Aphasia, Receptive Aphasia or Dysarthric
Cranial Nerve II: Left Eye: Pupillary Size Unremarkable and Visual Cuello Grossly Intact
Cranial Nerve II: Right Eye: Pupillary Size Unremarkable and Visual Cuello Grossly Intact
Cranial Nerves III, IV, : Extraocular Movement: Grossly Intact
Cranial Nerve VII: Facial Symmetry: Normal Facial Symmetry
Cranial Nerve VIII: Hearing: Unremarkable Hearing to Normal Conversational Volume
Cranial Nerve XI: Shoulder Shrug: Unable to Assess
Muscle Strength, Overall: Other (Right arm unable to maintain off bed, left arm and leg 5/5)
Muscle Bulk & Tone: Bulk Unremarkable and Tone Unremarkable
Pronator Drift: Unable to Assess
Touch Sensation: Unremarkable
Gait & Station: Unable to Assess
Data Reviewed
-
MRI Head: Report Reviewed and Image Reviewed
Reviewed with: Physician and Nurse Practioner
Old Records: Summarized
Past History
Past History
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 Sleep apnea)
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
Social History
Tobacco: Non-smoker
Alcohol: None
Drug: None
Personal: Single
Living: assisted living
Employment: Disabled
Family History
Family History: Other (breast cancer)
Medications
-
Medications:
Generic Name Dose Route Start Last Admin
Trade Name Freq PRN Reason Stop Dose Admin
Acetaminophen 650 mg 12/31/23 12:40
Acetaminophen 650 Mg Rectal Suppository RECTAL 01/28/24 12:39
Q4HPRN PRN
BENTLEY, mild pain, or temp >100.4F
Acetaminophen 650 mg 12/31/23 12:40 12/31/23 21:21
Acetaminophen 325 Mg Tablet PO 01/28/24 12:39 650 mg
Q4HPRN PRN Administration
BENTLEY, mild pain, or temp >100.4F
Aspirin 81 mg 01/01/24 08:00
Aspirin 81 Mg (Enteric Coated) Tablet PO 01/29/24 07:59
DAILY TERESA
Bacitracin/Polymyxin B Sulfate 1 applic 12/31/23 13:46
Bacitracin/Polymyxin B (Ointment) Unit Dose Packet TOPICAL
BIDPRN PRN
forehead lacceration
Bisacodyl 10 mg 12/31/23 12:40
Bisacodyl 10 Mg Rectal Suppository RECTAL 01/28/24 12:39
[id number] PRN
constipation
Brivaracetam 100 mg 12/31/23 22:00 12/31/23 21:09
Brivaracetam 50 Mg Tablet PO 01/28/24 21:59 100 mg
BID TERESA Administration
Cholecalciferol 25 mcg 01/01/24 08:00
Cholecalciferol (Vitamin D3) 25 Mcg Tablet (1,000 Units) PO 01/29/24 07:59
DAILY TERESA
Cyanocobalamin 1,000 mcg 01/01/24 08:00
Cyanocobalamin 1,000 Mcg Tablet PO 01/29/24 07:59
DAILY ETRESA
Lidocaine 1 patch 01/01/24 08:00
Lidocaine 4% Topical Patch TOPICAL 01/29/24 07:59
DAILY TERESA
Pantoprazole Sodium 40 mg 01/01/24 08:00
Pantoprazole 40 Mg Delayed Release Tablet PO 01/29/24 07:59
DAILY TERESA
Patch Removal 0 patch 01/01/24 20:00
Remove Lidocaine Patch REMOVE 01/29/24 19:59
DAILY@2000 TERESA
Phenobarbital Sodium 97.2 mg 12/31/23 22:00 12/31/23 21:09
Phenobarbital 32.4 Mg Tablet PO 01/28/24 21:59 97.2 mg
HS TERESA Administration
Polyethylene Glycol 17 grams 01/01/24 08:00
Polyethylene Glycol Powder 17 Grams Packet PO 01/29/24 07:59
DAILY TERESA
Polyethylene Glycol 17 grams 12/31/23 12:40
Polyethylene Glycol Powder 17 Grams Packet PO 01/28/24 12:39
DAILYPRN PRN
constipation
Senna/Docusate Sodium 1 tablet 12/31/23 12:40
Docusate W/Senna (Su-Colace) Tablet PO 01/28/24 12:39
BIDPRN PRN
constipation
Sennosides 17.2 mg 12/31/23 22:00 12/31/23 21:09
Sennosides (Senokot) 8.6 Mg Tablet PO 01/28/24 21:59 17.2 mg
HS TERESA Administration
Sertraline HCl 25 mg 01/01/24 08:00
Sertraline 25 Mg Tablet PO 01/29/24 07:59
DAILY TERESA
Sodium Chloride 0 flush 12/31/23 14:00
Sodium Chloride 0.9% (Flush) Syringe IV 01/28/24 13:59
PER PROTOCOL TERESA
Tamsulosin HCl 0.4 mg 12/31/23 22:00 12/31/23 21:09
Tamsulosin 0.4 Mg Capsule PO 01/28/24 21:59 0.4 mg
HS TERESA Administration
[2024-01-01] MEDS: MIRALAX 17 GRAMS PO (08:18)
[2024-01-01] MEDS: PROTONIX 40 MG PO (08:19)
[2024-01-01] MEDS: BRIVIACT 100 MG PO ×2 (08:19→19:52)
[2024-01-01] MEDS: VITAMIN B-12 1000 MCG PO (08:20)
[2024-01-01] MEDS: LIDOCAINE 4% PATCH 1 PATCH TOPICAL (08:20)
[2024-01-01] MEDS: ASPIR LOW (ENTERIC COATED) 81 MG PO (08:20)
[2024-01-01] MEDS: ZOLOFT 25 MG PO (08:20)
[2024-01-01] MEDS: VITAMIN D3 (cholecalciferol) 25 MCG PO (08:20)
--- NOTE | 2024-01-01 14:25 | CM ---
Met with pt and his [id number] at bedside
Per SHAWN Crenshaw she and her have POA for pt
Pt was living in Assisted Living at [place] [facility]
Some assist needed for ADL's, was able to feed self and ambulate with rolling walker - frequent falls noted recently
Currently pt needs to be fed - unable to perform adl's
PT recommending SNF - family in agreement and would like [facility]
PCP - Dr Nam Charles
Pharm - thru [facility]
Spoke with Paige at [facility] - referral sent via [facility]
Plan - anticipate [facility] SNF when medically ready
--- NOTE | 2024-01-01 14:51 | W.PN.HOSP.TC ---
Today's Communication/Plan
-
Assistance with all meals
T spine MRI
PT OT
Assessment / Plan
Assessment / Plan
CVS: S1-S2 normal
Chest: CTA B/L
Abdomen: Soft, NT / Bowel sounds present
Extremities: No edema, normal pulses
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 10/29
#Right-sided weakness
Admitted for ruling out stroke
MRI of the brain no CVA
CTA - No acute changes
Upper back pain- Get T spine MRI
Neurochecks, NIH scale
Neurology evaluation
PT OT and speech evaluation
# Seizures-currently on Briviact and phenobarbital
# History of dysphagia and food impaction summer
Continue PPI
# First-degree heart block and long QTc
Monitor on telemetry
Check magnesium
# Asymptomatic Bradycardia-Normal TSH recently
# Sturge-Redman syndrome
# Developmental delay
# Chronic back pain/scoliosis
# Neuropathy NOS
# Frozen shoulder on the right
# Anxiety/depression-on sertraline
# History of vitamin D deficiency-continue vitamin D supplement
# Small ulcers on the legs
# Sleep apnea-not on CPAP
# CODE STATUS-DNR per D/W Family
# DVT prophylaxis-SCDs
D/W SHAWN
D/W TASNEEM at bed side
D/W Neuro
D/W RN
Anticipated Discharge: 24 - 48 hours
Subjective/Interval History
-
Date of Service: January 01, 2024
Objective Data
-
Labs:
Laboratory Results
01/01/24
05:38
WBC 6.5
Hgb 13.7
Hct 40.7
Plt Count 282
Sodium 136
Potassium 4.2
Chloride 105
Carbon Dioxide 26
BUN 12
Creatinine 0.5 L
Glucose 92
Calcium 9.5
Vital Signs:
Vital Signs
Temp Pulse Resp BP Pulse Ox
98.6 F 70 18 130/79 94
01/01/24 12:15 01/01/24 12:15 01/01/24 12:15 01/01/24 12:15 01/01/24 12:15
I&O
12/31/23 01/01/24 01/02/24
06:59 06:59 06:59
Intake Total 880 / 880
Balance 880 / 880
[2024-01-01] MEDS: LIPITOR 40 MG PO (17:34)
[2024-01-01] MEDS: LUMINAL 97.2000000000000028 MG PO (22:36)
[2024-01-01] MEDS: SENOKOT 17.1999999999999993 MG PO (22:36)
[2024-01-01] MEDS: FLOMAX 0.400000000000000022 MG PO (22:36)
[2024-01-02] VITALS (7 sets, daily range): BP systolic 116–141; BP diastolic 72–86; PULSE 102; O2SAT 93; BMI 23.8
[2024-01-02 05:48] LABS: Hematocrit 40.2 % (39.0-52.0); Hemoglobin 13.7 g/dL (13.0-18.0); Mean Corp Hgb Conc. 34.1 g/dL (33.0-37.0); Mean Corpuscular Hgb 31.6 pg (27.0-31.0); Mean Corpuscular Volume 92.8 fL (80.0-94.0); Platelet Count 267 10^3/uL (130-400); Red Blood Cell Count 4.33 10^6/uL (4.70-6.10); Red Cell Dist. Width 14.8 % (11.5-14.5)
[2024-01-02 06:13] LABS: Blood Urea Nitrogen 16 mg/dl (9-20); Calcium 9.7 mg/dl (8.4-10.2); Carbon Dioxide 26 mmol/L (22-30); Chloride 104 mmol/L (98-107); Estimated Creatinine Clearance 96 ml/min; Glucose 96 mg/dl (70-99); Potassium 4.1 mmol/L (3.5-5.1); Sodium 137 mmol/L (135-145); eGFR > 60.00
[2024-01-02] MEDS: PROTONIX 40 MG PO (08:32)
[2024-01-02] MEDS: VITAMIN B-12 1000 MCG PO (08:32)
[2024-01-02] MEDS: BRIVIACT 100 MG PO ×2 (08:33→21:33)
[2024-01-02] MEDS: LIDOCAINE 4% PATCH 1 PATCH TOPICAL ×2 (08:33→18:45)
[2024-01-02] MEDS: MIRALAX 17 GRAMS PO (08:33)
[2024-01-02] MEDS: ZOLOFT 25 MG PO (08:34)
[2024-01-02] MEDS: VITAMIN D3 (cholecalciferol) 25 MCG PO (08:34)
[2024-01-02] MEDS: ASPIR LOW (ENTERIC COATED) 81 MG PO (08:34)
--- NOTE | 2024-01-02 11:59 | W.PN.HOSP.TC ---
Today's Communication/Plan
-
MRI C spine
PT OT
Please get pt OOB
Assessment / Plan
Assessment / Plan
CVS: S1-S2 normal
Chest: CTA B/L
Abdomen: Soft, NT / Bowel sounds present
Extremities: No edema, Has mild pain right shoulder area
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 ( TASNEEM cannot say if this is baseline or not) But seems better than yesterday.Seems to be able to lift legs up while seated.
#Right-sided weakness
Admitted for ruling out stroke
MRI of the brain no CVA
CTA - No acute changes
Neurochecks, NIH scale
Neurology following
His right leg seems to have improved.
I will get an MRI of C spine
PT OT and speech evaluation
# Seizures-currently on Briviact and phenobarbital
# History of dysphagia and food impaction summer
Continue PPI
# First-degree heart block and long QTc
Monitor on telemetry
Check magnesium
# Asymptomatic Bradycardia-Normal TSH recently
# Sturge-Redman syndrome
# Developmental delay
# Chronic back pain/scoliosis
# Neuropathy NOS
# Frozen shoulder on the right
# Anxiety/depression-on sertraline
# History of vitamin D deficiency-continue vitamin D supplement
# Small ulcers on the legs
# Sleep apnea-not on CPAP
# CODE STATUS-DNR per D/W Family
# DVT prophylaxis-SCDs
D/W SHAWN
D/W TASNEEM at bed side
D/W RN
Anticipated Discharge: 24 - 48 hours
Subjective/Interval History
-
Date of Service: January 02, 2024
Objective Data
-
Labs:
Laboratory Results
01/02/24
05:33
WBC 7.0
Hgb 13.7
Hct 40.2
Plt Count 267
Sodium 137
Potassium 4.1
Chloride 104
Carbon Dioxide 26
BUN 16
Creatinine 0.5 L
Glucose 96
Calcium 9.7
Vital Signs:
Vital Signs
Temp Pulse Resp BP Pulse Ox
97.8 F 90 17 141/86 93
01/02/24 07:00 01/02/24 07:00 01/02/24 07:00 01/02/24 07:00 01/02/24 07:00
I&O
01/01/24 01/02/24 01/03/24
06:59 06:59 06:59
Intake Total 880 / 880 720 / 720
Balance 880 / 880 720 / 720
[2024-01-02] MEDS: NSS (PRESERVATIVE FREE) 0.25 ML IV (14:18)
[2024-01-02] MEDS: ATIVAN 0.5 MG IV (14:18)
--- NOTE | 2024-01-02 14:49 | CM ---
Case management following for d/c planning
PT recommending SNF - accepted at [facility]
No auth needed
CM will cont to follow for d/c needs
Plan - [facility] snf when medically ready
[2024-01-02] MEDS: LIPITOR 40 MG PO (17:26)
[2024-01-02] MEDS: DECADRON 4 MG IV (17:26)
[2024-01-02] MEDS: LUMINAL 97.2000000000000028 MG PO (21:33)
[2024-01-02] MEDS: FLOMAX 0.400000000000000022 MG PO (21:33)
[2024-01-02] MEDS: SENOKOT 17.1999999999999993 MG PO (21:33)
[2024-01-03] MEDS: FLUSH (NSS) 2 FLUSH IV (02:15)
[2024-01-03] MEDS: DECADRON 4 MG IV ×2 (02:15→10:16)
[2024-01-03 03:30] VITALS: BP 119/75
--- NOTE | 2024-01-03 05:45 | W.PN.UPDATE ---
Update Note
Progress Note Update
bladder scan 760 cc, straight cath x1, will collect UA to culture.
[2024-01-03 07:00] VITALS: BP 124/79
[2024-01-03 07:25] LABS: Urine Albumin Negative (Neg - Trace); Urine Bilirubin Negative (Negative); Urine Character Clear (Clear); Urine Color Yellow; Urine Glucose Negative (Negative); Urine Ketone Negative (Negative); Urine Leukocyte Negative (Negative); Urine Nitrite Negative (Negative); Urine Occult Blood Negative (Negative); Urine Urobilinogen Negative (Neg - 1+); Urine pH 6.5 (5.0-9.0)
[2024-01-03] MEDS: ASPIR LOW (ENTERIC COATED) 81 MG PO (08:25)
[2024-01-03] MEDS: BRIVIACT 100 MG PO ×2 (08:25→20:40)
[2024-01-03] MEDS: VITAMIN D3 (cholecalciferol) 25 MCG PO (08:25)
[2024-01-03] MEDS: PROTONIX 40 MG PO (08:25)
[2024-01-03] MEDS: VITAMIN B-12 1000 MCG PO (08:25)
[2024-01-03] MEDS: ZOLOFT 25 MG PO (08:25)
[2024-01-03] MEDS: MIRALAX 17 GRAMS PO (08:26)
[2024-01-03] MEDS: LIDOCAINE 4% PATCH 1 PATCH TOPICAL (08:26)
[2024-01-03 11:00] VITALS: BP 122/68
--- NOTE | 2024-01-03 13:29 | W.PN.HOSP.TC ---
Today's Communication/Plan
-
WIll D/W Neuro
Assessment / Plan
Assessment / Plan
CVS: S1-S2 normal
Chest: CTA B/L
Abdomen: Soft, NT / Bowel sounds present
Extremities: No edema, Has mild pain right shoulder area
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
#Right-sided weakness
Admitted for ruling out stroke
MRI of the brain no CVA
CTA - No acute changes
Neurochecks, NIH scale
Neurology following
His right leg seems to have improved.
MRI of C spine noted
His weakness may be related to spine
Not sure if he can tolerate an EMG/NCS
May not e candidate for surgery(Family may not want that either)
Steroids started yesterday
PT OT
#Urinary retention- Straight cath prn. This was an issue last time when he was here.
# Seizures-currently on Briviact and phenobarbital
# History of dysphagia and food impaction summer
Minced and moist food.
Continue PPI
# First-degree heart block and long QTc
Monitor on telemetry
# Asymptomatic Bradycardia-Normal TSH recently
# Sturge-Redman syndrome
# Developmental delay
# Chronic back pain/scoliosis
# Neuropathy NOS
# Frozen shoulder on the right
# Anxiety/depression-on sertraline
# History of vitamin D deficiency-continue vitamin D supplement
# Small ulcers on the legs
# Sleep apnea-not on CPAP
# CODE STATUS-DNR per D/W Family
# DVT prophylaxis-SCDs
D/W Neuro
D/W TASNEEM at bed side
D/W RN
Anticipated Discharge: 24 - 48 hours
Subjective/Interval History
-
Date of Service: January 03, 2024
Objective Data
-
Vital Signs:
Vital Signs
Temp Pulse Resp BP Pulse Ox
97.8 F 96 16 122/68 94
01/03/24 11:00 01/03/24 11:00 01/03/24 11:00 01/03/24 11:00 01/03/24 11:00
I&O
01/02/24 01/03/24 01/04/24
06:59 06:59 06:59
Intake Total 720 / 720 220 / 220
Output Total 800 / 800
Balance 720 / 720 -580 / -580
--- NOTE | 2024-01-03 13:38 | W.PN.NEURO.1 ---
Today's Communication / Plan
-
-Reasonable to place on short course steroids Prednisone for 5 days in hopes of treating any nerve compression in conservative manner
-Continue aspirin 81 mg daily
-Discussed with family my thoughts on etiology of the right arm hand weakness, they wish to pursue conservative measures, till not pursue spinal surgery evaluation or EMG
-Continue his anti seizure medications at the same doses
-Monitor for pain on the right arm and shoulder
Neuro Assessment/Plan
Assessment
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
MRI of brain: unchanged from previous
CT cervical spine ruled out any fracture, do not suspect cervical spine lesion.
Impressions
1. Right arm and right leg weakness along with short lasting speech difficulty. Doubt this is an MRI negative stroke or Pj's paralysis. Has existing right arm and leg weakness probably from previous left brain tumor resection, right frozen
shoulder probably limiting as well but frozen shoulder wouldn't explain his right hand and forearm weakness
MRI cervical spine images and report reviewed
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
Discussed with patient's family that this operative treatment of such a lesion would likely entail major surgery and decompression which they do not want for the patient, would rather pursue conservative measures. EMG may further support this
diagnosis but I have doubts about patient's ability to tolerate this with his intellectual disability as it is a complicated and uncomfortable procedure done without sedation and as it will not lead to change in our management in a major way would
certainly honor family's wishes not to pursue EMG
Subjective/Objective
Subjective Data
Date of Service: January 03, 2024
No acute events, patient pleasant, not noting any new pains, his brother in law at bedside
Objective Data
Vital Signs
Temp Pulse Resp BP Pulse Ox
97.8 F 96 16 122/68 94
01/03/24 11:00 01/03/24 11:00 01/03/24 11:00 01/03/24 11:00 01/03/24 11:00
Lab Results
01/02/24 05:33
01/02/24 05:33
Sodium 137 mmol/L (135-145) 01/02/24 05:33
Potassium 4.1 mmol/L (3.5-5.1) 01/02/24 05:33
BUN 16 mg/dl (9-20) 01/02/24 05:33
Glucose 96 mg/dl (70-99) 01/02/24 05:33
Calcium 9.7 mg/dl (8.4-10.2) 01/02/24 05:33
LDL Cholesterol, Calc 152 mg/dl 01/01/24 05:38
Patient Allergies
No Known Allergies Allergy (Verified 12/31/23 00:55)
Review of Systems
-
History Source: Patient
All other systems: Reviewed and negative
Constitutional: No Symptoms
EENT: No Symptoms Reported
Respiratory: No Symptoms
Cardiac: No Symptoms
Abdomen/GI: No Symptoms
Genitourinary: No Symptoms
Musculoskeletal: No Symptoms
Skin: No Symptoms
Neuro: Weakness
Endocrine: No Symptoms
Hematologic / Lymphatic: No Symptoms
Allergy / Immunology: No Symptoms
Physical Exam
-
General: Comfortable
Eyes: No Ptosis
HEENT: Normocephalic
Neck: No Bruits Bilaterally
Respiratory: Clear to Auscultation
Extended Neurological Exam
Speech: Quality Unremarkable and Quantity Unremarkable
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
--- NOTE | 2024-01-03 14:35 | CM ---
Case management following for d/c planning
Chart reviewed
PT recommending SNF
[facility] accepted pt
Plan - [facility] when medically stable
[2024-01-03 15:00] VITALS: BP 123/69
[2024-01-03] MEDS: LIPITOR 40 MG PO (17:20)
[2024-01-03] MEDS: LUMINAL 97.2000000000000028 MG PO (22:08)
[2024-01-03] MEDS: SENOKOT 17.1999999999999993 MG PO (22:08)
[2024-01-03] MEDS: FLOMAX 0.400000000000000022 MG PO (22:08)
[2024-01-03 23:15] VITALS: BP 110/58
[2024-01-04] MEDS: POLYSPORIN OINTMENT 1 APPLIC TOPICAL (06:14)
[2024-01-04 07:00] VITALS: BP 120/67
[2024-01-04] MEDS: MIRALAX 17 GRAMS PO (08:29)
[2024-01-04] MEDS: LIDOCAINE 4% PATCH 1 PATCH TOPICAL (08:29)
[2024-01-04] MEDS: DELTASONE 40 MG PO (08:38)
[2024-01-04] MEDS: VITAMIN D3 (cholecalciferol) 25 MCG PO (08:38)
[2024-01-04] MEDS: BRIVIACT 100 MG PO (08:38)
[2024-01-04] MEDS: ASPIR LOW (ENTERIC COATED) 81 MG PO (08:38)
[2024-01-04] MEDS: ZOLOFT 25 MG PO (08:38)
[2024-01-04] MEDS: PROTONIX 40 MG PO (08:38)
[2024-01-04] MEDS: VITAMIN B-12 1000 MCG PO (08:38)
--- NOTE | 2024-01-04 13:16 | W.PN.HOSP.TC ---
Today's Communication/Plan
-
Okay for discharge to rehab
I do not anticipate that he needs more than 30 days in the rehab
Please ensure that patient gets his seizure medicines tonight as dosed at the rehab
Assessment / Plan
Assessment / Plan
CVS: S1-S2 normal
Chest: CTA B/L
Abdomen: Soft, NT / Bowel sounds present
Extremities: No edema, Has mild pain right shoulder area
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 Slightly bend at the elbow , better than yesterday.
#Right-sided weakness arm. Leg almost back to close to baseline
Admitted for ruling out stroke
MRI of the brain no CVA
CTA - No acute changes
Neurochecks, NIH scale
Neurology following
Slowly improving with steroids
MRI of C spine noted
His weakness may be related to spine
Not sure if he can tolerate an EMG/NCS
May not e candidate for surgery(Family does not want that either)
Steroids started and it showed some improvement
PT OT
#Urinary retention- Straight cath prn. This was an issue last time when he was here.
Likely will resolve when patient is more up and ambulatory with PT
# Seizures-currently on Briviact and phenobarbital-continue
# History of dysphagia and food impaction summer
Minced and moist food.
Continue PPI
# First-degree heart block and long QTc
# Asymptomatic Bradycardia-Normal TSH recently
# Sturge-Redman syndrome
# Developmental delay
# Chronic back pain/scoliosis
# Neuropathy NOS
# Frozen shoulder on the right
# Anxiety/depression-on sertraline
# History of vitamin D deficiency-continue vitamin D supplement
# Small ulcers on the legs
# Sleep apnea-not on CPAP
# CODE STATUS-DNR per D/W Family
# DVT prophylaxis-SCDs
D/W case management
D/W Brother at bed side and also [id number] Dr. Portillo
D/W RN at bedside
Anticipated Discharge: Today
Subjective/Interval History
-
Date of Service: January 04, 2024
Objective Data
-
Vital Signs:
Vital Signs
Temp Pulse Resp BP Pulse Ox
98.5 F 87 18 120/67 98
01/04/24 07:00 01/04/24 07:00 01/04/24 07:00 01/04/24 07:00 01/04/24 07:00
I&O
01/03/24 01/04/24 01/05/24
06:59 06:59 06:59
Intake Total 220 / 220 240 / 240 480 / 480
Output Total 800 / 800 815 / 815
Balance -580 / -580 -575 / -575 480 / 480
--- NOTE | 2024-01-04 13:25 | W.DS.TRANS ---
Addendum entered and electronically signed by Pallavi Devlin MD 01/04/24 16:24:
Dictation- [id number]
Original Note:
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
-
Discharge Instructions:
Discharge Diagnosis/Procedures Right arm weakness-suspect radiculopathy,
urinary retention, seizures, dysphagia, first-
degree heart block, prolonged QTc, asymptomatic
bradycardia, Sturge-Redman syndrome, chronic back
pain scoliosis, frozen shoulder on the right,
anxiety and depression, vitamin D deficiency
Additional Diets IDDSI [id number]
Activity As tolerated,With assistance
Driving Restrictions No driving
Other Services PT,OT
Instructions:
Stand-Alone Forms:
Changes to Home Medications: Yes
Discharge Medications:
DC Medications w/original date entered in [facility]
phenobarbital 97.2 mg tablet 97.2 mg PO HS Seizures ##0 08/19/14
cyanocobalamin (vitamin B-12) 1,000 mcg tablet,extended release 1,000 mcg PO DAILY Supplement ##0 05/07/16
cholecalciferol (vitamin D3) 25 mcg (1,000 unit) tablet (Vitamin D3) 25 mcg PO DAILY Supplement 10/25/23
pantoprazole 40 mg granules delayed-release for susp in packet (Protonix) 40 mg PO DAILY Gastrointestinal Issue 10/26/23
sertraline 25 mg tablet 25 mg PO DAILY Depression 10/26/23
lidocaine 4 % topical patch 1 patch topical DAILY Pain #0 ea 11/06/23
polyethylene glycol 3350 17 gram oral powder packet (HealthyLax) 17 g PO DAILY Constipation #0 ea 11/06/23
sennosides 8.6 mg tablet (Senna Laxative) 17.2 mg (2 x 8.6 mg) PO HS Constipation #0 tabs 11/06/23
tamsulosin 0.4 mg capsule 0.4 mg PO HS Urinary issue #0 caps 11/06/23
neomycin-bacitracn Zn-polymyxn 3.5 mg-400 unit-5,000 unit top oint pkt (Triple Antibiotic) 1 applic topical BIDPRN PRN forhead lacceration 12/31/23
acetaminophen 325 mg tablet 650 mg (2 x 325 mg) PO Q4HPRN PRN pain #0 tabs 01/04/24
aspirin 81 mg tablet,delayed release 81 mg PO DAILY Blood clot prevention/tx #0 tabs 01/04/24
atorvastatin 40 mg tablet 40 mg PO QPM High cholesterol #0 tabs 01/04/24
bisacodyl 10 mg rectal suppository 10 mg HI [id number] PRN constipation #0 ea 01/04/24
brivaracetam 100 mg tablet 100 mg PO BID Seizures #60 tabs 01/04/24
prednisone 20 mg tablet 40 mg (2 x 20 mg) PO DAILY radiculopathy #8 tabs 01/04/24
Home Medication Changes
new
aspirin 81 mg tablet,delayed release 81 mg PO DAILY Blood clot prevention/tx #0 tabs 01/04/24
atorvastatin 40 mg tablet 40 mg PO QPM High cholesterol #0 tabs 01/04/24
prednisone 20 mg tablet 40 mg (2 x 20 mg) PO DAILY radiculopathy #8 tabs 01/04/24
Pending Results: No
--- NOTE | 2024-01-04 14:50 | CM ---
Pt to be d/c'ed to [email or web address]
Notified Paige at [email or web address] - aware
Discussed IMM with pts brother Rafi
Transport arranged for [id number]
[email or web address] and family aware
Plan - transfer to [email or web address]
R - [phone]
- [phone]
[2024-01-04 15:00] VITALS: BP 108/74
--- NOTE | 2024-01-04 15:14 | PTCARENOTE ---
Pt bladder scanned for 571mL d/t no urine output for 6 hours. Straight cathed for 200mL. During straight cath pt began voiding on own and pushed catheter out. PVR showed 50mL.
[2024-01-04] MEDS: LIPITOR 40 MG PO (17:00)
== END 2024-01-04 19:14 | DRG 552 ==
LOC: 3 WEST ACU 11:53
PROVIDERS: Nurse Practitioner Gerontology; ADMITTING PHYSICIAN Hospitalist; CONSULT PHYSICIAN Student in an Organized Health Care Education/Training Program; EMERGENCY PHYSICIAN Emergency Medicine
DX: M99.71 Connective tissue and disc stenosis of intervertebral foramina of cervical region (principal); Q85.89 Other phakomatoses, not elsewhere classified; G81.91 Hemiplegia, unspecified affecting right dominant side; I44.0 Atrioventricular block, first degree; Z66 Do not resuscitate; Z79.82 Long term (current) use of aspirin; F41.9 Anxiety disorder, unspecified; F32.A Depression, unspecified; M54.10 Radiculopathy, site unspecified; R33.9 Retention of urine, unspecified; E55.9 Vitamin D deficiency, unspecified
CPT/HCPCS: 70450; 70496; 70498; 70551; 72125; 72156; 73030; 73564; 80048; 80061; 81003; 83735; 85027; 87070; 92610; 93005; 97162; 97167; 97530; 97535; 99285; A9575; Q9967

== ENCOUNTER 2024-03-04 18:15 | Emergency (ER) | payer MEDICARE, SELFPAY ==
[2024-03-04 18:23] VITALS: BP 154/107; BMI 25.6
[2024-03-04 18:27] VITALS: BP 154/107
[2024-03-04 18:29] LABS: % Basophils 0.1 % (0-2); % Eosinophils 0.1 % (0-6); % Immature Granulocytes 0.9 % (0-0.5); % Monocytes 4.1 % (1.7-9.3); % Neutrophils 87.8 % (42.2-75.2); Absolute Immature Granulocytes 0.1 10^3/uL (0-0.05); Absolute Lymphocytes 0.6 10^3/uL (1.2-3.4); Absolute Monocytes 0.4 10^3/uL (0.1-0.6); Absolute Neutrophils 7.7 10^3/uL (1.4-6.5); Hematocrit 44.8 % (39.0-52.0); Hemoglobin 15.6 g/dL (13.0-18.0); Mean Corp Hgb Conc. 34.8 g/dL (33.0-37.0); Mean Corpuscular Hgb 32.9 pg (27.0-31.0); Mean Corpuscular Volume 94.5 fL (80.0-94.0); Mean Platelet Volume 9.2 fL (7.4-10.4); Nucleated Red Blood Cells % 0 % (-); Platelet Count 214 10^3/uL (130-400); Red Blood Cell Count 4.74 10^6/uL (4.70-6.10); Red Cell Dist. Width 14.6 % (11.5-14.5); White Blood Cell Count 8.7 10^3/uL (4.8-10.8)
--- NOTE | 2024-03-04 18:35 | ED.GENMED ---
History of Present Illness
General
Chief Complaint: Seizure
Source: patient, family (Brother) and penitentiary
Time Seen by Provider: 03/04/24 18:22
History of Present Illness
History of Present Illness:
73-year-old male presents to the emergency room from [facility] where he evidently had a seizure. Patient was noted to have a yelling or grunting episode. He was described as having some twitching. This was followed by a period of
confusion. Patient does have a history of epilepsy for which he takes brivaracetam. Patient receives his medication at [facility] so presumably he did receive it. Patient offers no complaints.
Past History
Past History
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 Sleep apnea)
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
Social History
Tobacco: Non-smoker
Alcohol: None
Drug: None
Personal: Single
Living: assisted living
Employment: Disabled
Family History
Family History: Other (breast cancer)
Phy Exam
Physical Exam
Physical Exam:
General: Awake, Alert, Oriented X1. No acute distress.
Vitals: unremarkable
Head: Atraumatic
Eyes: Pupils equal, EOMI
Throat: Airway intact, no exudates
Neck: Trachea midline
Lungs: Clear and equal b/l
Heart: Regular rate, no murmurs
Abd: Soft, Nontender, No pulsatile mass
Neuro: Right arm range of motion is limited presumably from degenerative disease of the shoulder which his brother states the patient has a history of.
Skin: Warm, dry, no rash
Extremities: pulses equal b/l, no edema
Course
Orders/Labs/Results
Orders:
Orders
03/04/24 18:18
Electrocardiogram (*1) Urgent
Reason for Study: Vertigo / Dizzy
EKG- Treatment ONCE
03/04/24 18:23
Complete Blood Count/With Diff Urgent
Comprehensive Metabolic Panel Urgent
Lactic Acid Urgent
Abnormal Lab Results
03/04/24
18:23
MCV 94.5 H fL
(80.0-94.0)
MCH 32.9 H pg
(27.0-31.0)
RDW 14.6 H %
(11.5-14.5)
Abs Immat Gran (auto) 0.1 H 10^3/uL
(0-0.05)
Absolute Neuts (auto) 7.7 H 10^3/uL
(1.4-6.5)
Absolute Lymphs (auto) 0.6 L 10^3/uL
(1.2-3.4)
Immature Gran % 0.9 H %
(0-0.5)
Neutrophils % 87.8 H %
(42.2-75.2)
Lymphocytes % 7.0 L %
(20.5-51.1)
Creatinine 0.6 L mg/dL
(0.7-1.3)
Glucose 140 H mg/dl
(70-99)
03/04/24 18:23
03/04/24 18:23
Vital Signs
Initial and Last Documented VS:
Initial Vital Signs
Temp Pulse Resp BP Pulse Ox
98.4 F 88 18 154/107 90
03/04/24 18:23 03/04/24 18:23 03/04/24 18:23 03/04/24 18:23 03/04/24 18:23
Last Documented Vital Signs
Temp Pulse Resp BP Pulse Ox
98.4 F 82 13 112/75 93
03/04/24 18:23 03/04/24 20:00 03/04/24 20:00 03/04/24 20:00 03/04/24 20:00
MDM/Problems Addressed
Differential Diagnosis Includes:
breakthrough sz, electrolyte abn,
MDM/Problems Addressed:
Patient observed for period of time. He is returned essentially to baseline. Stable for discharge back to his facility
Acute Exacerbation and/or Progression of Chronic Illness: Other (Seizure disorder)
*Pulse Oximetry
Patient hypoxic: no
*EKG
Interpreted by ED Provider?: Yes
Heart Rate: 88
Rate: normal
Rhythm: sinus
Interval: first degree heart block and long QT
Ischemia: no ischemia
*Critical Care Note
Total Time (30-74mins, 75-104mins- exclusive of procedures): Not Applicable
ED Attending Note
-
Portions of this chart may have been created with voice recognition software.� Occasional wrong word or��sound alike� substitutions may have occurred due to the inherent limitations of voice recognition software.
Discharge Plan
Departure
Patient Disposition: [facility]/SNF
Date of Disposition: 03/04/24
Time of Disposition: 19:29
Condition: Good
Discharge Problem:
Seizure
Instructions: Seizures, Adult (DC)
Prescriptions:
No Action
cyanocobalamin (vitamin B-12) 1,000 mcg Tablet Extended Release
1,000 mcg PO DAILY Qty: 0
cholecalciferol (vitamin D3) [Vitamin D3] 25 mcg (1,000 unit) Tablet
25 mcg PO DAILY
sertraline 25 mg tablet
25 mg PO DAILY
pantoprazole [Protonix] [address] for susp in packet
40 mg PO DAILY
sennosides [Senna Laxative] 8.6 mg Tablet
17.2 mg PO HS Qty: 0 0RF
lidocaine 4 % Adhesive Patch,Medicated
1 patch topical DAILY Qty: 0 0RF
polyethylene glycol 3350 [HealthyLax] 17 gram Powder In Packet
17 g PO DAILY Qty: 0 0RF
tamsulosin 0.4 mg Capsule
0.4 mg PO HS Qty: 0 0RF
Triple Antibiotic 3.5-400-5,000 [id number] Ointment In Packet
1 applic TOPICAL BIDPRN PRN (Reason: forhead lacceration)
atorvastatin 40 mg Tablet
40 mg PO QPM Qty: 0 0RF
acetaminophen 325 mg Tablet
650 mg PO Q4HPRN PRN (Reason: pain) Qty: 0 0RF
prednisone 20 mg Tablet
40 mg PO DAILY Qty: 8 0RF
aspirin 81 mg Tablet,Delayed Release (Dr/Ec)
81 mg PO DAILY Qty: 0 0RF
bisacodyl 10 mg Suppository
10 mg KS [id number] PRN (Reason: constipation) Qty: 0 0RF
brivaracetam 100 mg tablet
100 mg PO BID Qty: 60 0RF
phenobarbital 32.4 mg Tablet
97.2 mg PO HS Qty: 10 0RF
Referrals:
Olivier Hemphill MD [Family Provider] -
Interventions
Interventions:
*Risk Screen - Suicide Last Done: 03/04/24 18:23
*General Assessment Last Done: 03/04/24 18:23
*Neglect/Abuse Screening Last Done: 03/04/24 18:23
ED- Fall Risk Assessment Last Done: 03/04/24 18:23
*ED COVID-19 Vaccine History Last Done: 03/04/24 18:23
*Nursing Disposition Last Done: 03/04/24 20:40
ED- Cardiac Assessment Last Done: 03/04/24 19:22
ED- Neurological Assessment Last Done: 03/04/24 19:22
ED- Pulmonary Assessment Last Done: 03/04/24 19:22
Discharge Date and Time
Discharge Date/Time: 03/04/24 20:46
Print Language: SURINAMESE
[2024-03-04 18:41] LABS: Lactic Acid 1.5 mmol/L (0.7-2.0)
[2024-03-04 18:53] LABS: ALT (SGPT) 41 U/L (0-50); AST (SGOT) 26 U/L (17-59); Albumin 4.3 g/dl (3.5-5.0); Alkaline Phosphatase 76 U/L (38-126); Blood Urea Nitrogen 17 mg/dl (9-20); Calcium 9.6 mg/dl (8.4-10.2); Carbon Dioxide 26 mmol/L (22-30); Chloride 101 mmol/L (98-107); Estimated Creatinine Clearance 99 ml/min; Glucose 140 mg/dl (70-99); Potassium 4.6 mmol/L (3.5-5.1); Sodium 136 mmol/L (135-145); Total Bilirubin 0.3 mg/dl (0.2-1.3); Total Protein 6.8 g/dl (6.3-8.2); eGFR > 60.00
[2024-03-04 19:00] VITALS: BP 177/104; BP 181/96
[2024-03-04 19:21] VITALS: BMI 25.3
[2024-03-04 20:00] VITALS: BP 112/75
== END 2024-03-04 20:46 ==
LOC: EMR 18:15
PROVIDERS: EMERGENCY PHYSICIAN Emergency Medicine; FAMILY PHYSICIAN Family Medicine
DX: G40.909 Epilepsy, unspecified, not intractable, without status epilepticus (principal); F41.9 Anxiety disorder, unspecified; G47.30 Sleep apnea, unspecified; Z80.3 Family history of malignant neoplasm of breast
CPT/HCPCS: 99283; 80053; 83605; 85025; 93005

== ENCOUNTER → 2024-12-05 10:33 | Outpatient (REF) | payer MEDICARE, SELFPAY ==
[2024-12-05 11:47] LABS: % Basophils 0.6 % (0-2); % Eosinophils 2.9 % (0-6); % Immature Granulocytes 0.3 % (0-0.5); % Lymphocytes 26.6 % (20.5-51.1); % Monocytes 12.8 % (1.7-9.3); % Neutrophils 56.8 % (42.2-75.2); Absolute Eosinophils 0.2 10^3/uL (0-0.7); Absolute Lymphocytes 1.9 10^3/uL (1.2-3.4); Absolute Monocytes 0.9 10^3/uL (0.1-0.6); Absolute Neutrophils 4.1 10^3/uL (1.4-6.5); Hematocrit 42.4 % (39.0-52.0); Hemoglobin 14.1 g/dL (13.0-18.0); Mean Corp Hgb Conc. 33.3 g/dL (33.0-37.0); Mean Corpuscular Volume 96.1 fL (80.0-94.0); Mean Platelet Volume 10.8 fL (7.4-10.4); Nucleated Red Blood Cells % 0 % (-); Platelet Count 245 10^3/uL (130-400); Red Blood Cell Count 4.41 10^6/uL (4.70-6.10); Red Cell Dist. Width 14.1 % (11.5-14.5); White Blood Cell Count 7.2 10^3/uL (4.8-10.8)
[2024-12-05 11:58] LABS: ALT (SGPT) 17 U/L (0-50); AST (SGOT) 17 U/L (17-59); Alkaline Phosphatase 111 U/L (38-126); Blood Urea Nitrogen 14 mg/dl (9-20); Calcium 9.5 mg/dl (8.4-10.2); Carbon Dioxide 25 mmol/L (22-30); Chloride 106 mmol/L (98-107); Glucose 94 mg/dl (70-99); HDL Cholesterol 57 mg/dl; LDL Cholesterol, Calculated 82 mg/dl; Potassium 4.7 mmol/L (3.5-5.1); Sodium 140 mmol/L (135-145); Total Bilirubin 0.6 mg/dl (0.2-1.3); Total Cholesterol 154 mg/dl (50-199); Total Protein 6.8 g/dl (6.3-8.2); Triglyceride 77 mg/dl (10-149); Very Low Density Lipoprotein 15 mg/dl (0-30); eGFR > 60.00
[2024-12-05 12:12] LABS: Vitamin D, 25-OH*** 24.2 ng/mL (30-80)
[2024-12-05 12:44] LABS: Vitamin B12 855 pg/ml (239-931)
== END ==
LOC: OLABP 10:33
PROVIDERS: ATTENDING PHYSICIAN Family Medicine
DX: Z74.1 Need for assistance with personal care (principal); R27.8 Other lack of coordination; G47.33 Obstructive sleep apnea (adult) (pediatric); F41.9 Anxiety disorder, unspecified; F32.9 Major depressive disorder, single episode, unspecified; G40.909 Epilepsy, unspecified, not intractable, without status epilepticus; M62.81 Muscle weakness (generalized); M99.71 Connective tissue and disc stenosis of intervertebral foramina of cervical region; R27.0 Ataxia, unspecified; R33.9 Retention of urine, unspecified; I44.1 Atrioventricular block, second degree; R13.14 Dysphagia, pharyngoesophageal phase; M54.50 Low back pain, unspecified; K21.9 Gastro-esophageal reflux disease without esophagitis; M62.59 Muscle wasting and atrophy, not elsewhere classified, multiple sites; Q85.89 Other phakomatoses, not elsewhere classified; M75.00 Adhesive capsulitis of unspecified shoulder; Z79.899 Other long term (current) drug therapy
CPT/HCPCS: 36415; 80053; 80061; 80184; 82306; 82607; 85025

== ENCOUNTER → 2025-01-05 11:50 | Outpatient (REF) | payer MEDICARE, SELFPAY ==
[2025-01-05 12:59] LABS: Vitamin D, 25-OH*** 28.5 ng/mL (30-80)
== END ==
LOC: OLABP 11:50
PROVIDERS: ATTENDING PHYSICIAN Family Medicine
DX: E55.9 Vitamin D deficiency, unspecified (principal)
CPT/HCPCS: 36415; 82306

== ENCOUNTER → 2025-05-19 11:56 | Outpatient (REF) | payer MEDICARE, SELFPAY ==
[2025-05-19 12:23] LABS: Hematocrit 41.6 % (39.0-52.0); Hemoglobin 13.8 g/dL (13.0-18.0); Mean Corp Hgb Conc. 33.2 g/dL (33.0-37.0); Mean Corpuscular Volume 95.6 fL (80.0-94.0); Nucleated Red Blood Cells % 0 % (-); Platelet Count 226 10^3/uL (130-400); Red Cell Dist. Width 14.4 % (11.5-14.5)
[2025-05-19 12:29] LABS: Blood Urea Nitrogen 14 mg/dl (9-20); Calcium 9.4 mg/dl (8.4-10.2); Carbon Dioxide 28 mmol/L (22-30); Chloride 103 mmol/L (98-107); Glucose 96 mg/dl (70-99); HDL Cholesterol 64 mg/dl; LDL Cholesterol, Calculated 71 mg/dl; Potassium 4.4 mmol/L (3.5-5.1); Sodium 138 mmol/L (135-145); Very Low Density Lipoprotein 11 mg/dl (0-30); eGFR > 60.00
[2025-05-19 12:46] LABS: Vitamin D, 25-OH*** 31.2 ng/mL (30-80)
[2025-05-19 13:18] LABS: Vitamin B12 854 pg/ml (239-931)
== END ==
LOC: OLABP 11:56
PROVIDERS: ATTENDING PHYSICIAN Family Medicine
DX: R26.2 Difficulty in walking, not elsewhere classified (principal); Z74.1 Need for assistance with personal care; R27.8 Other lack of coordination; E55.9 Vitamin D deficiency, unspecified; G47.33 Obstructive sleep apnea (adult) (pediatric); F41.9 Anxiety disorder, unspecified; F32.9 Major depressive disorder, single episode, unspecified; G40.909 Epilepsy, unspecified, not intractable, without status epilepticus; M62.81 Muscle weakness (generalized); R33.9 Retention of urine, unspecified; R13.14 Dysphagia, pharyngoesophageal phase; M54.50 Low back pain, unspecified; K21.9 Gastro-esophageal reflux disease without esophagitis; M62.59 Muscle wasting and atrophy, not elsewhere classified, multiple sites; Q85.89 Other phakomatoses, not elsewhere classified; M75.00 Adhesive capsulitis of unspecified shoulder; M99.71 Connective tissue and disc stenosis of intervertebral foramina of cervical region; R27.0 Ataxia, unspecified; I44.1 Atrioventricular block, second degree
CPT/HCPCS: 36415; 80048; 80061; 82306; 82607; 84443; 85025

== ENCOUNTER → 2025-06-19 11:04 | Outpatient (REF) | payer MEDICARE, SELFPAY ==
[2025-06-19 12:30] LABS: Hematocrit 40.8 % (39.0-52.0); Hemoglobin 13.4 g/dL (13.0-18.0); Mean Corp Hgb Conc. 32.8 g/dL (33.0-37.0); Mean Corpuscular Volume 96.7 fL (80.0-94.0); Nucleated Red Blood Cells % 0 % (-); Platelet Count 218 10^3/uL (130-400); Red Cell Dist. Width 14.7 % (11.5-14.5)
[2025-06-19 12:46] LABS: Blood Urea Nitrogen 16 mg/dl (9-20); Calcium 9.1 mg/dl (8.4-10.2); Carbon Dioxide 27 mmol/L (22-30); Chloride 106 mmol/L (98-107); Glucose 94 mg/dl (70-99); Potassium 4.3 mmol/L (3.5-5.1); Sodium 135 mmol/L (135-145); eGFR > 60.00
[2025-06-19 13:09] LABS: TSH 1.83 uIU/ml (0.47-4.68)
== END ==
LOC: OLABP 11:04
PROVIDERS: ATTENDING PHYSICIAN Family Medicine
DX: E55.9 Vitamin D deficiency, unspecified (principal); E03.9 Hypothyroidism, unspecified
CPT/HCPCS: 36415; 80048; 84439; 84443; 85025

== ENCOUNTER → 2025-06-24 09:52 | Outpatient (REF) | payer MEDICARE, SELFPAY ==
[2025-06-24 11:11] LABS: Blood Urea Nitrogen 16 mg/dl (9-20); Calcium 9.3 mg/dl (8.4-10.2); Carbon Dioxide 28 mmol/L (22-30); Chloride 103 mmol/L (98-107); Glucose 89 mg/dl (70-99); Potassium 4.9 mmol/L (3.5-5.1); Sodium 135 mmol/L (135-145); eGFR > 60.00
== END ==
LOC: OLABPG 09:52
PROVIDERS: ATTENDING PHYSICIAN Family Medicine
DX: Z74.1 Need for assistance with personal care (principal); R27.8 Other lack of coordination; R26.2 Difficulty in walking, not elsewhere classified; E55.9 Vitamin D deficiency, unspecified; G47.33 Obstructive sleep apnea (adult) (pediatric); F41.9 Anxiety disorder, unspecified; F32.9 Major depressive disorder, single episode, unspecified; G40.909 Epilepsy, unspecified, not intractable, without status epilepticus; M62.81 Muscle weakness (generalized); R33.9 Retention of urine, unspecified; R13.14 Dysphagia, pharyngoesophageal phase; M54.50 Low back pain, unspecified; K21.9 Gastro-esophageal reflux disease without esophagitis; M62.59 Muscle wasting and atrophy, not elsewhere classified, multiple sites; M75.00 Adhesive capsulitis of unspecified shoulder; Q85.89 Other phakomatoses, not elsewhere classified; R27.0 Ataxia, unspecified; I44.1 Atrioventricular block, second degree; M99.71 Connective tissue and disc stenosis of intervertebral foramina of cervical region
CPT/HCPCS: 36415; 80048